=== PATIENT | female | born 1940 | race Caucasian/White ===

== ENCOUNTER 2017-11-02 03:23 | Inpatient (IN) | payer OTHER ==
[2017-11-02] VITALS (18 sets, daily range): BP systolic 86–153; BP diastolic 61–89; PULSE 82–123; TEMP 36.6–37; O2SAT 92–100; BMI 39.4
[~2017-11-02] VITALS: Ht 152.4 cm; Wt 84.7 kg
--- NOTE | 2017-11-02 03:37 | EMERGENCY ROOM VISIT NOTE ---
History Report prepared by Beatris: Ryan Arroyo Under the Supervision of: Dr. More Marie D.O. First contact with patient: 03:29 Chief Complaint: SHORTNESS OF BREATH Stated Complaint: SHORTNESS OF BREATH History of Present Illness The patient is a 77 year old female who presents to the Emergency Room with complaints of constant, severe, shortness of breath beginning 1 hour and 45 minutes ago. EMS states the patient had a sudden onset of shortness of breath. They report the patient was placed on c-pap in route and given Adenocard and Cardizem. EMS notes this helped the patient. They state they tried to remove the patient from C-pap and put her on NC 6L, but her O2Sat dropped. EMS reports they applied an inch of nitro paste. They note the patient complained of a sorethroat earlier today. The patient states she has phlegm in her throat, and she cannot clear it. She reports this began in the middle of her sleep. The patient denies any pain. The patient's daughter states she started smoking a pack of cigarettes a day 6 weeks ago after an argument. She reports the patient has not smoked in 20 years. The daughter notes the patient woke up severely short of breath. She states the patient ran into her room and could not breathe. The daughter reports the patient had vomited, became incontinent of stool, and was insisting she put a straw in the patient's throat so she can breathe. Source of History: patient, family (daughter), EMS Onset: 1 hour and 45 minutes ago Symptom Intensity: severe Quality: other (SOB) Timing: constant Associated Symptoms: + sorethroat, + vomiting Note: Associated symptoms: incontinent of stool Review of Systems See HPI for pertinent positives & negatives. A total of 10 systems reviewed and were otherwise negative. Past Medical & Surgical Medical Problems: (1) GERD (gastroesophageal reflux disease) (2) Hemorrhoids (3) HTN (hypertension) (4) Hypothyroidism (5) Status post bilateral knee replacements Family History FH: cancer Hypertension Social History Smoking Status: Never Smoker Alcohol Use: none Housing Status: lives with family Occupation Status: unemployed Current/Historical Medications Scheduled Aspirin (Aspirin Ec), 81 MG PO DAILY Cholecalciferol (Vitamin D3), 1,000 UNITS PO DAILY Docusate Sodium (Docusate Sodium), 100 MG PO BID Ferrous Sulfate (Kp Ferrous Sulfate), 1 TAB PO DAILY Hydrocortisone 2.5% (Rectal) (Anusol-Hc 2.5%), 1 APPLN TOP BID Levothyroxine Sodium (Levothyroxine Sodium), 200 MCG PO DAILY Levothyroxine Sodium (Levothyroxine Sodium), 50 MCG PO DAILY Losartan Potassium (Cozaar), 50 MG PO DAILY Metoprolol Succ (Toprol Xl) (Toprol-Xl), 50 MG PO DAILY Paroxetine (Paxil), 40 MG PO DAILY Raloxifene Hcl (Evista), 60 MG PO DAILY Tolterodine Tartrate (Tolterodine Tartrate), 2 MG PO BID Scheduled PRN Clonazepam (Klonopin), 0.5 MG PO TID PRN for anxiety Naproxen (Aleve), 440 MG PO DIRECTED PRN for Pain Ropinirole (Requip), 0.5 MG PO TID PRN for restless legs [aspirin caffeine], 1 TAB PO DAILY PRN for mild pain Allergies Coded Allergies: Amoxicillin (Verified Allergy, Unknown, unknown, 11/02/17) Lisinopril (Verified Allergy, Unknown, unknown, 11/02/17) Milk (Verified Allergy, Unknown, GI UPSET, 11/02/17) Physical Exam Vital Signs Date Time Temp Pulse Resp B/P (MAP) Pulse Ox O2 Delivery O2 Flow Rate FiO2 11/02/17 05:37 112 23 121/89 98 BiPAP 100 11/02/17 05:33 104 99 BiPAP/CPAP 100 11/02/17 04:31 132/98 11/02/17 04:23 99 18 97 BiPAP 100 11/02/17 04:01 120/89 11/02/17 03:53 102 24 117/63 96 11/02/17 03:41 96 92 75 11/02/17 03:38 91 BiPAP 11/02/17 03:35 98 11/02/17 03:29 134/67 11/02/17 03:25 36.5 96 30 134/67 93 CPAP Physical Exam General: Moderate respiratory distress. The patient has audible rales on the initial examination. HEENT: Head - normocephalic and atraumatic Pupils are equal, round, and reactive to light. Extraocular eye muscles are intact, and sclera are anicteric. Nose - moist nasal mucosa without discharge. Mouth - moist buccal mucosa. Oropharynx is nonerythematous and there is no tonsillar exudate or edema noted. Neck: Supple; no JVD, nuchal rigidity, cervical lymphadenopathy. Heart: Regular rate and rhythm. There is a normal S1 and S2 with no murmurs, clicks, or gallops appreciated. Lungs: Diffuse rales. Abdomen: Soft, completely nontender, nondistended, with good bowel sounds. There are no palpable pulsatile masses or hepatosplenomegaly. There is no guarding, rigidity, or rebound noted. Extremities: No evidence of cyanosis or clubbing. 2+ edema. There are easily palpable peripheral pulses. Skin: warm and dry with good turgor and no rashes. Medical Decision & Procedures ER Provider Diagnostic Interpretation: X-ray results as stated below per interpretation by me: Chest X-ray: Massive pulmonary edema - right greater than left. Laboratory Results 11/02/17 03:48 Red Blood Count 4.48, Mean Corpuscular Volume 84.2, Mean Corpuscular Hemoglobin 27.2, Mean Corpuscular Hemoglobin Concent 32.4, Mean Platelet Volume 8.9, Neutrophils (%) (Auto) 78.2, Lymphocytes (%) (Auto) 10.8, Monocytes (%) (Auto) 9.0, Eosinophils (%) (Auto) 1.5, Basophils (%) (Auto) 0.1, Neutrophils # (Auto) 11.56, Lymphocytes # (Auto) 1.59, Monocytes # (Auto) 1.33, Eosinophils # (Auto) 0.22, Basophils # (Auto) 0.02 11/02/17 03:48 Test 11/02/17 03:47 11/02/17 03:48 11/02/17 05:28 Prothrombin Time 11.7 SECONDS (9.0-12.0) Prothromb Time International Ratio 1.1 (0.9-1.1) Procalcitonin < 0.05 ng/ml (0-0.5) White Blood Count 14.78 K/uL (4.8-10.8) Red Blood Count 4.48 M/uL (4.2-5.4) Hemoglobin 12.2 g/dL (12.0-16.0) Hematocrit 37.7 % (37-47) Mean Corpuscular Volume 84.2 fL (80-100) Mean Corpuscular Hemoglobin 27.2 pg (25-34) Mean Corpuscular Hemoglobin Concent 32.4 g/dl (32-36) Platelet Count 403 K/uL (130-400) Mean Platelet Volume 8.9 fL (7.4-10.4) Neutrophils (%) (Auto) 78.2 % Lymphocytes (%) (Auto) 10.8 % Monocytes (%) (Auto) 9.0 % Eosinophils (%) (Auto) 1.5 % Basophils (%) (Auto) 0.1 % Neutrophils # (Auto) 11.56 K/uL (1.4-6.5) Lymphocytes # (Auto) 1.59 K/uL (1.2-3.4) Monocytes # (Auto) 1.33 K/uL (0.11-0.59) Eosinophils # (Auto) 0.22 K/uL (0-0.5) Basophils # (Auto) 0.02 K/uL (0-0.2) RDW Standard Deviation 45.7 fL (36.4-46.3) RDW Coefficient of Variation 15.2 % (11.5-14.5) Immature Granulocyte % (Auto) 0.4 % Immature Granulocyte # (Auto) 0.06 K/uL (0.00-0.02) Anion Gap 7.0 mmol/L (3-11) Est Creatinine Clear Calc Drug Dose 44.4 ml/min Estimated GFR () 55.6 Estimated GFR (Non- 48.0 BUN/Creatinine Ratio 10.9 (10-20) Calcium Level 9.1 mg/dl (8.5-10.1) Pro-B-Type Natriuretic Peptide 6948 pg/ml (0-900) Arterial Blood pH 7.36 (7.35-7.45) Arterial Blood Partial Pressure CO2 41 mmHg (35-46) Arterial Blood Partial Pressure O2 179 mm/Hg (80-95) Arterial Blood HCO3 23 mmol/L (19-24) Arterial Blood Oxygen Saturation 99.3 % (90-95) Arterial Blood Base Excess -2.6 mEq/L (-9-1.8) Arterial Blood Gas Delivery 100% Greg Test POS (POS) Magnesium Level 1.8 mg/dl (1.8-2.4) Thyroid Stimulating Hormone (TSH) < 0.005 uIu/ml (0.300-4.500) Free Thyroxine 3.43 ng/dl (0.80-1.60) Total Triiodothyronine 1.39 ng/ml (0.60-1.81) Laboratory results per my review. Medications Administered Medications (Trade) Dose Ordered Sig/[place] Route Start Time Stop Time Status Last Admin Dose Admin Furosemide (Lasix Inj) 40 mg NOW STAT IV 11/02/17 03:49 11/02/17 03:50 DC 11/02/17 03:53 40 MG Heparin Sodium/ Dextrose 1 ea NOW STAT N/A 11/02/17 04:49 11/02/17 04:51 DC 11/02/17 05:13 1 EA Heparin Sodium/ Dextrose 500 ml @ 27 mls/hr [id number] IV 11/02/17 05:30 11/09/17 05:29 11/02/17 22:01 27 MLS/HR Ipratropium Rock (Atrovent 0.02% 0.5MG/2.5ML Neb) 0.5 mg NOW STAT INH 11/02/17 05:18 11/02/17 05:19 DC 11/02/17 05:33 0.5 MG Levalbuterol (Xopenex 1.25MG/ 0.5ML Neb) 1.25 mg NOW STAT INH 11/02/17 05:18 11/02/17 05:19 DC 11/02/17 05:33 1.25 MG Procedure 0349: Ordered Furosemide 40mg IV 0507: Ordered Heparin drip ECG Per My Interpretation Indication: SOB/dyspnea Rate (beats per minute): 92 Rhythm: atrial fibrillation Findings: ST depression (Lateral, Lead I, and AVL) Comparison ECG Date: 09/30/2013 Change: A-fib and ST depressions are new. ED Course 0328: The patient was evaluated in room B03B. A complete history and physical examination were performed. Nursing notes and previous electronic medical records were reviewed. IV lock was established and labs were drawn as above. The patient was placed on BiPAP. She had good O2 saturations with this in place and appeared much more comfortable. 0349: I spoke with the patient's daughter. Ordered Furosemide 40mg IV 0445: I reevaluated the patient. She was more comfortable appearing and in no respiratory distress. Her lungs appeared more clear to auscultation. 0449: Ordered Heparin drip 0452: I discussed the patient's case with Vlad Cagle PA-C, ICU. He is aware of the patient's case and will evaluate the patient for further care. 0455: I discussed the patient's case with Ag Bartlett. The patient will be evaluated for further management and care. 0507: A Brandon catheter was placed Medical Decision The patient is a 77 year old female who presents to the ED with severe shortness of breath. Differential diagnosis includes a-fib with RVR, STEMI, CHF , acute coronary syndrome, pneumonia, sepsis. Lab results show: WBC of 14.7, stable H&H, troponin of 1.9, BNP of 6948, glucose of 129, normal renal function. This is a 77-year-old female patient who came to the emergency department and respiratory failure. O2 saturations without BiPAP were 72%. The patient appeared comfortable on BiPAP. Chest x-ray showed significant asymmetric pulmonary edema. Lasix was initiated and a Brandon catheter was placed. The patient's symptoms started abruptly. She felt fine before bed. She had no shortness of breath, cough or fever. I discussed the case with the PA in the ICU and he will evaluate the patient. She will remain on BiPAP. Medication Reconcilliation Current Medication List: was personally reviewed by me Blood Pressure Screening Patient's blood pressure: Normal blood pressure Blood pressure disposition: Did not require urgent referral Consults Time Called: [phone] Consulting Physician: Vlad Cagle PA-C, ICU Returned Call: [phone] I discussed the patient's case with Vlad Cagle PA-C, ICU. He is aware of the patient's case and will evaluate the patient for further care. Additional Consults: Time Called: [phone] Consulted Physician: Ag Bartlett Returned Call: [phone] Additional Comments: I discussed the patient's case with Ag Bartlett. The patient will be evaluated for further management and care. Impression Primary Impression: Congestive heart failure Additional Impression: Atrial fibrillation with RVR Critical Care I have personally spent greater than 60 minutes of critical care time in the direct management of this patient. This includes bedside care, interpretation of diagnostic studies, and testing, discussion with consultants, patient, and family members, and other required patient management activities. This 60 minutes is in excess of all separately billable procedures. Scribe Attestation The scribe's documentation has been prepared under my direction and personally reviewed by me in its entirety. I confirm that the note above accurately reflects all work, treatment, procedures, and medical decision making performed by me. Departure Information Dispostion Being Evaluated By Hospitalist Referrals Mika Billy M.D. (PCP) Patient Instructions My [facility] Problem Qualifiers Primary Impression: Congestive heart failure Heart failure type: systolic Heart failure chronicity: acute Qualified Codes: I50.21 - Acute systolic (congestive) heart failure
[2017-11-02] MEDS ORDERED: FUROSEMIDE 40 MG/4 ML VIAL IV STA (03:49)
[2017-11-02] MEDS ORDERED: CLON0.5T3 PO (03:57)
[2017-11-02] MEDS ORDERED: RALO60TA30 PO (03:58)
[2017-11-02 03:59] LABS: BASO % 0.1 %; BASO ABS # 0.02 K/uL (0-0.2); EOS % 1.5 %; EOS ABS # 0.22 K/uL (0-0.5); HEMATOCRIT 37.7 % (37-47); HEMOGLOBIN 12.2 g/dL (12.0-16.0); IG# 0.06 K/uL (0.00-0.02); LYMPH % 10.8 %; LYMPH ABS # 1.59 K/uL (1.2-3.4); MEAN CELL VOLUME 84.2 fL (80-100); MEAN CORPUSCULAR HEMOGLOBIN 27.2 pg (25-34); MEAN CORPUSCULAR HGB CONC 32.4 g/dl (32-36); MEAN PLATELET VOLUME 8.9 fL (7.4-10.4); MONO ABS # 1.33 K/uL (0.11-0.59); NEUT % 78.2 %; NEUT ABS # 11.56 K/uL (1.4-6.5); PLATELET COUNT 403 K/uL (130-400); RED CELL DISTRIBUTION WIDTH CV 15.2 % (11.5-14.5); RED CELL DISTRIBUTION WIDTH SD 45.7 fL (36.4-46.3); WHITE BLOOD COUNT 14.78 K/uL (4.8-10.8)
[2017-11-02] MEDS ORDERED: FERR1TAB13 PO (03:59)
[2017-11-02] MEDS ORDERED: ROPI0.5T15 PO (04:00)
[2017-11-02] MEDS ORDERED: HYDR2.5C37 TOP (04:01)
[2017-11-02] MEDS ORDERED: LOSA50TA6 PO (04:02)
[2017-11-02] MEDS ORDERED: METO50TA8 PO (04:03)
[2017-11-02] MEDS ORDERED: PARO1TAB29 PO (04:04)
[2017-11-02] MEDS ORDERED: LEVO200T6 PO (04:05)
[2017-11-02] MEDS ORDERED: LEVO50TA6 PO (04:07)
[2017-11-02] MEDS ORDERED: TOLT2TAB9 PO (04:09)
[2017-11-02] MEDS ORDERED: DOCU100C31 PO (04:10)
[2017-11-02] MEDS ORDERED: CHOL1000 PO (04:10)
[2017-11-02] MEDS ORDERED: ASPI81TA28 PO (04:11)
[2017-11-02] MEDS ORDERED: ASPIRIN CAFFEINE PO (04:13)
[2017-11-02] MEDS ORDERED: NAPR1TAB9 PO (04:14)
[2017-11-02 04:18] LABS: ALBUMIN 3.1 gm/dl (3.4-5.0); ALT/SGPT 19 U/L (12-78); AST/SGOT 23 U/L (15-37); BLOOD UREA NITROGEN 12 mg/dl (7-18); CALCIUM 9.1 mg/dl (8.5-10.1); CARBON DIOXIDE 23 mmol/L (21-32); CREATININE 1.12 mg/dl (0.60-1.20); GLUCOSE 129 mg/dl (70-99); POTASSIUM 3.8 mmol/L (3.5-5.1); SODIUM 138 mmol/L (136-145)
[2017-11-02 04:32] LABS: ALKALINE PHOSPHATASE 85 U/L (45-117); TOTAL PROTEIN 6.9 gm/dl (6.4-8.2)
[2017-11-02] MEDS ORDERED: LEVALBUTEROL/IPRATROPIUM NEB INH STA (05:07)
[2017-11-02] MEDS ORDERED: HEPARIN 25000 UNIT/500 ML D5W ONE (05:07)
[2017-11-02] MEDS ORDERED: LEVALBUTEROL/IPRATROPIUM NEB INH PRN (05:15)
[2017-11-02] MEDS ORDERED: LEVALBUTEROL 1.25MG/0.5ML NEB INH STA (05:18)
[2017-11-02] MEDS ORDERED: IPRATROPIUM BROMIDE NEB SOLN 0.02% 2.5 ML VIAL INH STA (05:18)
[2017-11-02 05:21] LABS: INR 1.1 (0.9-1.1); PTT PATIENT 25.1 SECONDS (21.0-31.0)
[2017-11-02] MEDS ORDERED: IPRATROPIUM BROMIDE NEB SOLN 0.02% 2.5 ML VIAL INH PRN (05:30)
[2017-11-02] MEDS ORDERED: LEVALBUTEROL 1.25MG/0.5ML NEB INH PRN (05:30)
[2017-11-02] MEDS: HEPARIN 25,000 UNIT/500ML D5W 500 ML IV SCH ×2 (06:14→22:01)
[2017-11-02] MEDS ORDERED: MAGNESIUM SULFATE 1GM / D5W 100 ML IV STA (06:22)
--- NOTE | 2017-11-02 06:28 | DIAGNOSTIC IMAGING REPORT ---
CHEST ONE VIEW PORTABLE CLINICAL HISTORY: Shortness of breath. COMPARISON STUDY: Chest radiograph September 30, 2013. FINDINGS: Lung volumes are normal. There is no pneumothorax. There are suspected trace left and small right pleural effusions. There is diffuse interstitial thickening with airspace opacities, greater within the right lung. Cardiac size is at the upper limits of normal. Mediastinal contours are stable. IMPRESSION: 1. Extensive airspace opacities and interstitial thickening, greater within the right lung. The findings may reflect pneumonia or asymmetric pulmonary edema. Radiographic follow up is recommended. 2. Suspected small right and trace left pleural effusions. Electronically signed by: Ramos Horton M.D. 11/02/2017 6:27 AM Dictated Date/Time: 11/02/2017 6:25 AM
[2017-11-02] MEDS ORDERED: ACETAMINOPHEN 325 MG TAB PO PRN ×2 (06:30)
[2017-11-02] MEDS ORDERED: MoRPHine SULFATE 2 MG/ML CARP IV PRN (06:30)
[2017-11-02] MEDS ORDERED: NITROGLYCERIN 0.4 MG SL PER TAB CHARGE SL PRN (06:30)
[2017-11-02] MEDS ORDERED: PROCHLORPERAZINE INJ 5 MG in SYRINGE 4 ML IV PRN (06:30)
[2017-11-02] MEDS ORDERED: ICU PROTOCOL FOR HYPERGLYCEMIA PRN ×2 (06:30)
[2017-11-02] MEDS ORDERED: METOPROLOL SUCC 50MG EXT REL TAB PO STA ×2 (06:38→10:27)
[2017-11-02] MEDS ORDERED: POTASSIUM CHLORIDE 10 MEQ TABCR PO STA (06:38)
--- NOTE | 2017-11-02 07:23 | Critical Care Consultation ---
Critical Care Consultation Date of Consultation: November 02, 2017. Attending Physician: Reason for Consultation: 77-year-old female with acute hypoxic respiratory failure secondary to flash pulmonary edema in the setting of new onset A. fib with RVR requiring aggressive diuresis and close hemodynamic monitoring and noninvasive ventilatory techniques. History of Present Illness Patient is a 77-year-old female with a significant past medical history of hypertension and hyperlipidemia who presented to the emergency department this morning with an acute onset of shortness of breath. Patient had been a non- smoker for the past 20 years up until 6 weeks ago when she started smoking again. She is smoked approximately 1/2-1 pack of cigarettes per day for the past 6 weeks. She admits to increasing cough over this time. This evening, after smoking 4 cigarettes, she reports development of shortness of breath and feeling of suffocation. She ran into her daughter's bedroom to call for help. Her daughter reports that she was having obvious difficulty with breathing and had changed to a purplish color. In addition, she apparently asked the daughter to put a straw in her throat to help her breathe. Eventually, EMS was contacted to transfer the patient to the hospital. In route, the patient received adenosine 2 secondary to tachycardia with a rate of 180 bpm. This had no effect and the patient eventually received a 20 mg dose of Cardizem intravenously. This did seem to slow her rate which did help improvement of symptoms as well. On arrival in the emergency department, the patient had chest x-ray which was concerning for extensive pulmonary edema with greater focus to the RIGHT versus left. She was placed on BiPAP as she had saturations in the 70s while on nasal cannula alone. In addition, she had an elevated troponin and was started on a heparin drip secondary to concerns for acute coronary event. Her EKG demonstrated atrial fibrillation with ST depressions in lateral leads. No other acute findings were appreciated. She received 40 mg of IV Lasix as well with good diuresis. On evaluation, the patient is awake, alert, and oriented. She is aware of most of the events tonight, but is admittedly forgetful. The patient's daughter is at bedside and provides most of the historical information. The patient admits to starting smoking again secondary to increased agitation and frequent arguments with her daughter. She denies any other substance use or alcohol consumption. The patient has never experienced similar symptoms in the past. She reports taking metoprolol for blood pressure alone. She has never had a history of atrial fibrillation. She has had, surprisingly, no significant history of pulmonary disease despite an extensive smoking history. At this point, the patient reports feeling much better and reports improvement with breathing. She denies any headaches, dizziness, chest pain, abdominal pain, or bloody stools. Of note, the patient and family admit to 2-3 episodes over the past year where the patient has had periods of slurred speech as well as inability to formulate words which have lasted for several minutes with complete resolve of symptoms. She refused evaluation during these episodes. It is unknown if the patient has ever had a formal diagnosis of TIA or CVA. She also is supposed to be taking a statin which she refuses to take secondary to muscle cramping. Past Medical/Surgical History Medical Problems: (1) GERD (gastroesophageal reflux disease) (2) Hemorrhoids (3) HTN (hypertension) (4) Hypothyroidism (5) Respiratory failure, acute (6) Status post bilateral knee replacements Family History FH: cancer Hypertension PFHx: HTN Social History Smoking Status: Current Every Day Smoker Smokeless Tobacco Use: No Alcohol Use: none Drug Use: none Marital Status: single Housing Status: lives with family Occupation Status: unemployed Allergies Coded Allergies: Amoxicillin (Verified Allergy, Unknown, unknown, 11/02/17) Lisinopril (Verified Allergy, Unknown, unknown, 11/02/17) Milk (Verified Allergy, Unknown, GI UPSET, 11/02/17) Home Medications Scheduled Aspirin (Aspirin Ec), 81 MG PO DAILY Cholecalciferol (Vitamin D3), 1,000 UNITS PO DAILY Docusate Sodium (Docusate Sodium), 100 MG PO BID Ferrous Sulfate (Kp Ferrous Sulfate), 1 TAB PO DAILY Hydrocortisone 2.5% (Rectal) (Anusol-Hc 2.5%), 1 APPLN TOP BID Levothyroxine Sodium (Levothyroxine Sodium), 200 MCG PO DAILY Levothyroxine Sodium (Levothyroxine Sodium), 50 MCG PO DAILY Losartan Potassium (Cozaar), 50 MG PO DAILY Metoprolol Succ (Toprol Xl) (Toprol-Xl), 50 MG PO DAILY Paroxetine (Paxil), 40 MG PO DAILY Raloxifene Hcl (Evista), 60 MG PO DAILY Tolterodine Tartrate (Tolterodine Tartrate), 2 MG PO BID Scheduled PRN Clonazepam (Klonopin), 0.5 MG PO TID PRN for anxiety Naproxen (Aleve), 440 MG PO DIRECTED PRN for Pain Ropinirole (Requip), 0.5 MG PO TID PRN for restless legs [aspirin caffeine], 1 TAB PO DAILY PRN for mild pain Current Inpatient Medications Current Inpatient Medications Medications (Trade) Dose Ordered Sig/[place] Route Start Time Stop Time Status Last Admin Dose Admin Heparin Sodium/ Dextrose 500 ml @ 1 mls/hr Q24H IV 11/02/17 05:30 11/02/17 09:00 Ipratropium [place] (Atrovent 0.02% 0.5MG/2.5ML Neb) 0.5 mg Q4H PRN INH 11/02/17 05:30 12/02/17 05:29 Levalbuterol (Xopenex 1.25MG/ 0.5ML Neb) 1.25 mg Q4H PRN INH 11/02/17 05:30 12/02/17 05:29 Nitroglycerin (Nitrostat Tab) 0.4 mg UD PRN SL 11/02/17 06:30 12/02/17 06:29 Miscellaneous Information (Icu Protocol For Hyperglycemia) 1 ea PRN PRN N/A 11/02/17 06:30 11/04/17 06:29 UNV Tramadol HCl (Ultram Tab) 25 mg Q6H PRN PO 11/02/17 06:30 12/02/17 06:29 Prochlorperazine Edisylate 5 mg/ Syringe 5 ml @ 5 mls/min Q6H PRN IV 11/02/17 06:30 12/02/17 06:29 Morphine Sulfate (MoRPHine SULFATE INJ) 4 mg Q4H PRN IV 11/02/17 06:30 11/16/17 06:29 Clonazepam (Klonopin Tab) 0.5 mg TID PRN PO 11/02/17 06:30 12/02/17 06:29 UNV Docusate Sodium (coLACE CAP) 100 mg BID PO 11/02/17 09:00 12/02/17 08:59 UNV Losartan Potassium (coZAAR TAB) 50 mg DAILY PO 11/02/17 09:00 12/02/17 08:59 UNV Metoprolol Succinate (Toprol Xl Tab) 50 mg DAILY PO 11/03/17 09:00 12/03/17 08:59 UNV Paroxetine HCl (pAXil TAB) 40 mg DAILY PO 11/02/17 09:00 12/02/17 08:59 UNV Ropinirole HCl (Requip Tab) 0.5 mg TID PRN PO 11/02/17 06:30 12/02/17 06:29 UNV Tolterodine Tartrate (Detrol Tab) 2 mg BID PO 11/02/17 09:00 12/02/17 08:59 UNV Non-Formulary Medication (Ferrous Sulfate (Kp Ferrous Sulfate)) 1 tab DAILY PO 11/02/17 09:00 12/02/17 08:59 UNV Furosemide 40 mg/ Syringe 4 ml @ 4 mls/min BID IV 11/02/17 09:00 11/03/17 08:59 UNV Magnesium Sulfate 100 ml @ 100 mls/hr NOW STAT IV 11/02/17 06:22 11/02/17 07:21 Acetaminophen (Tylenol Tab) 650 mg Q4H PRN PO 11/02/17 06:30 12/02/17 06:29 Nitroglycerin (Nitroglycerin 2% Oint) 1 inch Q6H EXT 11/02/17 06:30 12/02/17 06:29 UNV Aspirin (Ecotrin Tab) 81 mg QAM PO 11/02/17 09:00 12/02/17 08:59 UNV Pantoprazole Sodium (Protonix Tab) 40 mg DAILY PO 11/02/17 09:00 12/02/17 08:59 UNV Miscellaneous Information (Icu Protocol For Hyperglycemia) 1 ea PRN PRN N/A 11/02/17 06:30 11/04/17 06:29 Review of Systems A complete 10-point Review of Systems was discussed with the patient, with pertinent positives and negatives listed in the History of Present Illness. All remaining Review of Systems questions can be considered negative unless otherwise specified. Physical Exam Date Time Temp Pulse Resp B/P (MAP) Pulse Ox O2 Delivery O2 Flow Rate FiO2 11/02/17 06:17 115 23 117/70 98 BiPAP 100 11/02/17 05:37 112 23 121/89 98 BiPAP 100 11/02/17 05:33 104 99 BiPAP/CPAP 100 11/02/17 04:31 132/98 11/02/17 04:23 99 18 97 BiPAP 100 11/02/17 04:01 120/89 11/02/17 03:53 102 24 117/63 96 11/02/17 03:41 96 92 75 11/02/17 03:38 91 BiPAP 11/02/17 03:35 98 11/02/17 03:29 134/67 11/02/17 03:25 36.5 96 30 134/67 93 CPAP VITAL SIGNS - Vital signs and nursing notes were reviewed. GENERAL - 77-year-old female appearing her stated age who is in no acute distress. Communicates well with provider and answers questions appropriately. SKIN - Without rashes. HEAD - NC/AT. EYES - PERRL with EOMI bilaterally. Sclera anicteric. EARS - No deformities of external structures noted on gross examination bilaterally. NOSE - Midline and without cyanosis. MOUTH/OROPHARYNX - Without perioral cyanosis. Buccal mucosa pink and moist and without leukoplakia. NECK - Neck with FROM. Supple to palpation. LUNGS - Chest wall symmetric without accessory muscle use, intercostals retractions, or central cyanosis. Normal vesicular breath sounds CTA B/L. Rales noted to the RIGHT sided lung diaz. CARDIAC - RRR with S1/S2. No murmur, rubs, or gallops appreciated. ABDOMEN - Abdominal contour obese without pulsations or visible masses. BS normoactive all four quadrants. No tenderness, palpable masses, hepatosplenomegaly, or ascites noted. EXTREMITIES - No clubbing or peripheral cyanosis. Moderate pretibial edema present. +3/5 radial and dorsalis pedis pulses palpated throughout. +5/5 strength noted in UE/LE bilaterally. NEUROLOGIC - Cranial nerves II through XII grossly intact. Sensory intact to light touch throughout. PSYCH - A&Ox3 and cooperates fully with examiner. States the year is 1918, but alert otherwise. Pt is very pleasant and interacts well with examiner. Laboratory Results Last 24 Hours Test 11/02/17 03:47 11/02/17 03:48 11/02/17 05:28 Prothrombin Time 11.7 SECONDS Prothromb Time International Ratio 1.1 Activated Partial Thromboplast Time 25.1 SECONDS Partial Thromboplastin Ratio 1.0 Procalcitonin < 0.05 ng/ml White Blood Count 14.78 K/uL Red Blood Count 4.48 M/uL Hemoglobin 12.2 g/dL Hematocrit 37.7 % Mean Corpuscular Volume 84.2 fL Mean Corpuscular Hemoglobin 27.2 pg Mean Corpuscular Hemoglobin Concent 32.4 g/dl Platelet Count 403 K/uL Mean Platelet Volume 8.9 fL Neutrophils (%) (Auto) 78.2 % Lymphocytes (%) (Auto) 10.8 % Monocytes (%) (Auto) 9.0 % Eosinophils (%) (Auto) 1.5 % Basophils (%) (Auto) 0.1 % Neutrophils # (Auto) 11.56 K/uL Lymphocytes # (Auto) 1.59 K/uL Monocytes # (Auto) 1.33 K/uL Eosinophils # (Auto) 0.22 K/uL Basophils # (Auto) 0.02 K/uL RDW Standard Deviation 45.7 fL RDW Coefficient of Variation 15.2 % Immature Granulocyte % (Auto) 0.4 % Immature Granulocyte # (Auto) 0.06 K/uL Sodium Level 138 mmol/L Potassium Level 3.8 mmol/L Chloride Level 108 mmol/L Carbon Dioxide Level 23 mmol/L Anion Gap 7.0 mmol/L Blood Urea Nitrogen 12 mg/dl Creatinine 1.12 mg/dl Est Creatinine Clear Calc Drug Dose 44.4 ml/min Estimated GFR () 55.6 Estimated GFR (Non- 48.0 BUN/Creatinine Ratio 10.9 Random Glucose 129 mg/dl Calcium Level 9.1 mg/dl Total Bilirubin 0.5 mg/dl Direct Bilirubin < 0.1 mg/dl Aspartate Amino Transf (AST/SGOT) 23 U/L Alanine Aminotransferase (ALT/SGPT) 19 U/L Alkaline Phosphatase 85 U/L Troponin I 1.910 ng/ml 3.560 ng/ml Pro-B-Type Natriuretic Peptide 6948 pg/ml Total Protein 6.9 gm/dl Albumin 3.1 gm/dl Arterial Blood pH 7.36 Arterial Blood Partial Pressure CO2 41 mmHg Arterial Blood Partial Pressure O2 179 mm/Hg Arterial Blood HCO3 23 mmol/L Arterial Blood Oxygen Saturation 99.3 % Arterial Blood Base Excess -2.6 mEq/L Arterial Blood Gas Delivery 100% Greg Test POS Lactic Acid Level 1.4 mmol/L Magnesium Level 1.8 mg/dl Thyroid Stimulating Hormone (TSH) < 0.005 uIu/ml Diagnostic Results Radiological imaging and reports were reviewed by myself. Radiologist's Interpretation as follows: CHEST ONE VIEW PORTABLE CLINICAL HISTORY: Shortness of breath. COMPARISON STUDY: Chest radiograph September 30, 2013. FINDINGS: Lung volumes are normal. There is no pneumothorax. There are suspected trace left and small right pleural effusions. There is diffuse interstitial thickening with airspace opacities, greater within the right lung. Cardiac size is at the upper limits of normal. Mediastinal contours are stable. IMPRESSION: 1. Extensive airspace opacities and interstitial thickening, greater within the right lung. The findings may reflect pneumonia or asymmetric pulmonary edema. Radiographic follow up is recommended. 2. Suspected small right and trace left pleural effusions. Assessment & Plan (1) Atrial fibrillation with RVR (2) Congestive heart failure (3) Respiratory failure, acute (4) Lower extremity edema (5) Hypothyroidism (6) HTN (hypertension) Reason Critically Ill: 77-year-old female with acute hypoxic respiratory failure secondary to flash pulmonary edema in the setting of new onset A. fib with RVR requiring aggressive diuresis and close hemodynamic monitoring and noninvasive ventilatory techniques. Neuro - * CAM ICU: NEGATIVE * Pain: Tylenol * Transient Confusion/Garbled Speech: * No focal neurological findings on exam. Do not see utility and brain imaging acutely. Certainly can be reassessed as this is likely something patient will need evaluation of at some point. Cardiac - * A. fib with RVR: * New onset. Well controlled with 1 dose of Cardizem. * Continue daily metoprolol. * EKG demonstrates atrial fibrillation at [address] depression laterally. QTc 437 ms. * A.m. echocardiogram for further evaluation of cardiac functionality. * Elevated troponin: * Will trend. * Question stress in the setting of tachycardia. * Heparin gtt at this time until further differentiation. * CHF: * 2/2 A. fib * Lasix dosing PRN. * Nitro paste q6h * BiPAP * HTN: * Continue home Rx as tolerated. * Appreciate Cardiology consultation. Respiratory - * Acute respiratory distress with hypoxia secondary to flash pulmonary edema: * BiPAP initially 12/5/100% - will titrate down FiO2 w/ improvement * CXR demonstrates pulmonary edema with greater focus RIGHT versus left. * Continue IV Lasix as needed. * Neb treatments per initial presentation with wheezing. * Encourage smoking cessation. GI - * Prophylaxis: Protonix * Diet: AHA RENAL/LYTES - * No significant electrolyte derangement. * Will trend, especially while receiving Lasix. - * Brandon in place for strict I&Os ENDO - * No h/o DM: * BSGs w/ ISS/gtt per protocols. * Hypothyroidism: * Continue w/ home Rx pending TSH/Free T4 values. HEME - * Stable H&H. * Monitor closely w/ initiation of heparin gtt. ID - * Slight leukocytosis, however likely stress related given above. * ProCal/Lactate negative. * CXR more suggestive of pulmonary edema. Will reevaluate for need of ??abx as clinical picture becomes more defined, however, she has improved greatly w/ Lasix BiPAP to this point. Much less concerned of infectious causes at this point. LINES/IV ACCESS - * PIVs x3 * Brandon DVT PROPHYLAXIS - * Heparin gtt I have personally spent 45 minutes of critical care time in the direct management of this patient. This is a life/limb threatening event. This includes time spent evaluating patient, direct bedside care, chart review, placing orders, interpretation of diagnostic studies, discussion with consultants, patient, and family members, as well as other required patient management activities. This time is exclusive of all separately billable procedures, and teaching time and separate from and in addition to any other critical care service time. Thank you for this consultation allow us to be part of this patient's care. Please refer to my attending physician's documentation for any further recommendations. I have personally evaluated and examined this patient. I agree with assessment and plan of Pattie Cagle PA-C. Patient was discussed on multidisciplinary rounds Improved aeration, hopefully able to take off noninvasive ventilation/BiPAP soon. -No evidence of hypercarbia patient would benefit from positive pressure does not need gradient Patient still needs heart rate control, will start oral medications with beta- my to resume this evening given additional dose of IV medication at this time Tolerating heparin infusion, no chest pain, discussed with cardiology Dr. Moya septal wall motion abnormality likely rate related Patient remains critically ill with rapid ventricular response at this time I have personally spent 20 minutes of critical care time in the direct management of this patient. This is a life/limb threatening event. This includes time spent evaluating patient, direct bedside care, chart review, placing orders, interpretation of diagnostic studies, discussion with consultants, patient, and/or family members regarding treatment decisions, as well as other required patient management activities. This time is exclusive of all separately billable procedures, and teaching time and separate from and in addition to any other critical care service time. Problem Qualifiers (1) Respiratory failure, acute: Respiratory failure complication: hypoxia Qualified Codes: J96.01 - Acute respiratory failure with hypoxia
[2017-11-02] MEDS ORDERED: ASPIRIN 81 MG ECTAB PO ONE (07:49)
[2017-11-02] MEDS ORDERED: METOPROLOL TARTRATE 1 MG/ML VIAL ONE (08:12)
[2017-11-02] MEDS ORDERED: METOPROLOL TARTRATE 1 MG/ML VIAL IV ONE (08:15)
[2017-11-02] MEDS: DOCUSATE SODIUM 100 MG CAP PO SCH ×2 (08:16→20:46)
[2017-11-02] MEDS: NITROGLYCERIN 2% OINTMENT 30GM TUBE EXT SCH ×4 (08:20→20:50)
[2017-11-02] MEDS: TOLTERODINE TARTRATE 2 MG TAB PO SCH ×2 (08:21→20:47)
[2017-11-02] MEDS: FERROUS SULFATE 325 MG TAB PO SCH (08:21)
[2017-11-02] MEDS: PAROXETINE 20 MG TAB PO SCH (08:21)
[2017-11-02] MEDS: PANTOprazole SOD 40 MG TAB PO SCH (08:21)
[2017-11-02] MEDS ORDERED: ASPIRIN 325 MG ECTAB PO ONE (08:30)
--- NOTE | 2017-11-02 08:59 | HISTORY & PHYSICAL EXAMINATION ---
DATE OF ADMISSION: 11/02/2017 PRIMARY CARE PHYSICIAN: Dr. Billy. CHIEF COMPLAINT: Shortness of breath. HISTORY OF PRESENT ILLNESS: History obtained from patient, daughter, and records. Patient is a fair historian. Episodic forgetfulness during the encounter. Medical history significant for hypertension, hypothyroidism, hyperlipidemia, arthritis, ongoing tobacco abuse, PVD sp surgery, Possible dementia/history of TIA as per family. In last 2 weeks, the patient noted some shortness of breath, usually on exertion and abdominal distention. Usual dry cough symptoms from chronic swallowing issues of 2 years duration. A few hours ago, the patient woke up from sleep with increased shortness of breath, No actual chest pain. No unusual leg swelling. Brought to the ER, noted to be hypoxemic. Placed on the BiPAP. Patient received Lasix for pulmonary congestion. IV heparin started for possible ACS. MEDICAL HISTORY: As above. No inducible ischemia from stress echo August 2015. EF 70%, LV wall thickness, no inducible ischemia. Diastolic dysfunction. She has had swallowing issues in the last 2 years as per daughter. Swallow evaluation last in October 2015 which showed mild oropharyngeal dysphagia. Outpatient GI consultation was recommended. Patient/family unaware of findings and recommendations. Colonoscopy 2011 showed a polyps, internal hemorrhoids. PAST SURGICAL HISTORY: She has had a knee surgery, aortic arch repair without bypass, cataract surgery, shoulder surgery. MEDICATIONS: Home medications include aspirin, Cozaar, Topral XL, Paxil, Evista, Requip, tolterodine, caffeine, cholecalciferol, Klonopin, docusate sodium, ferrous sulfate, hydrocortisone rectal. ALLERGIES: Amoxicillin, Zestril FAMILY HISTORY: Parkinson's. PERSONAL/SOCIAL HISTORY: Half pack daily in the last few weeks. No chronic alcoholic beverages. Retired childcare aide work. REVIEW OF SYSTEMS: Could not be reliably obtained . Occasional bleeding in the stools as per daughter. PHYSICAL EXAMINATION: VITAL SIGNS: Blood pressure was noted to be 132/98, pulse rate 102, RR 30, temperature 36.5, saturations 90% on BiPAP. GENERAL: anxious, obese. Minimal respiratory distress, episodic forgetfulness SKIN: Normal color, warm. HEENT: [place] palpebral conjunctivae, No ptosis. Dry mucosa. BiPAP mask in place NECK: Short neck, supple. CHEST: Expiratory wheezes. Decreased breath sounds. HEART: Irregular. Systolic murmur, palpable LE pulses. ABDOMEN: Some distention, nontender. RECTAL: Intact sphincter. Brown stool, heme negative. EXTREMITIES: No edema. No tenderness, no other gross deformities NEUROLOGIC: No gross focality except for episodic forgetfulness. Patient oriented to place. No facial asymmetry LABORATORY DATA: Hemoglobin was noted to be 12.2, hematocrit 37.7, white cell count 8.78, platelets 403. Sodium noted to be 138, potassium 3.8, chloride 108, CO2 of 23, BUN 12, creatinine 1.0, glucose 129. Troponin 1.91. BNP was 6.94. TSH noted to be less than 0.005. Chest x-ray as per my interpretation cardiomegaly, asymmetric pulmonary edema. EKG as per my interpretation, rate, rate 95, atrial fibrillation, LVH, LAD, ST depression in the lateral leads, PRWP. ABG shows pH 7.36, PCO2 of 41, PO2 of 179, 99% on 100%. ASSESSMENT: 1. Acute hypoxemic distress secondary to acute congestive heart failure ? new onset atrial fibrillation, ischemic cardiomyopathy (possible ACS w/ significant troponin elevation) as possible causative factors . 2. HTN, stable 3. Peripheral vascular disease sp surgery 4. Ongoing tobacco abuse. 5. history hypothyroidism, low TSH 6. Chronic cough symptoms from the oropharyngeal dysphagia. Possible GERD Patient still needs to go for GI workup as per swallow eval recommendations from 2016. PLAN: ICU BiPAP Diuretic tx, strict IOs, daily weights, CHF education TTE, Cardio consult RE CHF (Dr. Wallace as per patient's family request) Follow cardiac markers Continue home ASA for CAD prevention Continue home beta my for AF rate control IV heparin for thromboembolic prophylaxis for AF PPI for now for possible GERD. Outpatient GI consult for oropharyngeal dysphagia. Check other TFTs with abnormal TSH; Levothyroxine dose may need to be decreased/ adjusted Patient counseled to stop smoking. DVT Prophylaxis: Heparin. Full code. Total critical care time was 55 minutes. Patient's daughter requesting for updates from providers. Miss Olga Lidia Marroquin thru contact number [phone]. [facility]
[2017-11-02] MEDS ORDERED: LOSARTAN POTASSIUM 50 MG TAB PO SCH ×2 (09:00→21:00)
[2017-11-02] MEDS ORDERED: PANTOprazole SOD 40 MG TAB PO SCH (09:00)
[2017-11-02] MEDS ORDERED: ASPIRIN 81 MG ECTAB PO SCH (09:00)
--- NOTE | 2017-11-02 11:01 | ECHOCARDIOGRAM REPORT ---
*NOTICE TO RECEIVING DEMOCRAT AGENCY This information is strictly Confidential and protected under [place] law. [place] law prohibits you from making any further disclosure of this information unless further disclosure is expressly permitted by the written consent of the person to whom it pertains or is authorized by law. A general authorization for the release of medical or other information is not sufficient for this purpose. Hospital accepts no responsibility if the information is made available to any other person, INCLUDING THE PATIENT. Interpretation Summary * Name: GIORGI RAGLAND Study Date: 11/02/2017 09:08 AM BP: 114/95 mmHg * Patient Location: 103 HR: 107 * : 1940 (M/d/yyyy) Gender: Female Height: 60 in * Age: 77 yrs Ethnicity: CA Weight: 199 lb * Ordering Physician: Brando Tuttle * Referring Physician: Self, Referred * Performed By: Ana Dudley RDCS * * Reason For Study: Congestive Heart Failure * BSA: 1.9 m2 * -- Conclusions -- * Patient was in atrial fibrillation with rapid response during the study. * The left ventricle is normal in size. * There is moderate concentric left ventricular hypertrophy. * There is focal hypokinesis of the mid and apical anterior and inferior septum with all other wall segments rashaun hyperdynamic fashion * Ejection Fraction = 55-60%. * The left atrium is moderately dilated. * There is moderate calcification of the aortic valve leaflets with mild restriction leaflet mobility * Mild to moderate valvular aortic stenosis. * There is mild to moderate mitral annular calcification. * There is trace mitral regurgitation. * There is moderate tricuspid regurgitation. Procedure Details * A complete two-dimensional transthoracic echocardiogram was performed (2D, M-mode, Doppler and color flow Doppler). * The study was technically difficult. * The study was technically difficult, but visualization was adequate with the administration of Definity ultrasound contrast. * There were technical limitations due to patient'spoor positioning * A contrast injection of Definity was performed to improve assessment of LV function. * Contrast was injected into an intravenous site in the right arm. * One vial of Definity ultrasound contrast was diluted in normal saline to a total volume of 10 ml. A total of '2' ml of solution was administered during imaging. * Lot # [id number] of Definity utilized for procedure. * Expiration date 1APR19. * The attending nurse who injected the contrast agent was Indigo Rodrigez RN. Left Ventricle * The left ventricle is normal in size. * There is moderate concentric left ventricular hypertrophy. * Ejection Fraction = 55-60%. * There is focal hypokinesis of the mid and apical anterior and inferior septum with all other wall segments rashaun hyperdynamic fashion Right Ventricle * The right ventricle is normal in size and function. Atria * The left atrium is moderately dilated. * Right atrial size is normal. * No ASD detected; PFO is not assessed. Mitral Valve * There is mild to moderate mitral annular calcification. * There is no mitral valve stenosis. * There is trace mitral regurgitation. Tricuspid Valve * The tricuspid valve anatomy is normal. * There is no tricuspid stenosis. * There is moderate tricuspid regurgitation. Aortic Valve * The aortic valve is trileaflet. * There is moderate calcification of the aortic valve leaflets with mild restriction leaflet mobility * Mild to moderate valvular aortic stenosis. * No aortic regurgitation is present. Pulmonic Valve * The pulmonic valve is not well visualized. Great Vessels * The aortic root is normal size. Pericardium/Pleural * There is no pericardial effusion. Great Vessels * Normal inferior vena cava diameter and respiratory variation suggests normal central venous pressure. MMode 2D Measurements and Calculations IVSd 1.7 cm LVIDd 4.4 cm LVIDs 2.4 cm LVPWd 1.0 cm IVS/LVPW 1.7 FS 46.7 % EDV(Teich) 88.7 ml ESV(Teich) 19.2 ml EF(Teich) 78.3 % EDV(cubed) 86.4 ml ESV(cubed) 13.1 ml EF(cubed) 84.9 % LV mass(C)d 229.3 grams LV mass(C)dI 123.1 grams/m\S\2 SV(Teich) 69.4 ml SI(Teich) 37.3 ml/m\S\2 SV(cubed) 73.3 ml SI(cubed) 39.4 ml/m\S\2 Ao root diam 2.9 cm Ao root area 6.5 cm\S\2 ACS 1.3 cm LA dimension 5.0 cm LA/Ao 1.8 LVOT diam 1.9 cm LVOT area 2.7 cm\S\2 LVAd ap4 27.3 cm\S\2 LVLd ap4 7.6 cm EDV(MOD-sp4) 82.0 ml EDV(sp4-el) 83.1 ml LVAs ap4 13.5 cm\S\2 LVLs ap4 6.9 cm ESV(MOD-sp4) 22.5 ml ESV(sp4-el) 22.6 ml EF(MOD-sp4) 72.6 % EF(sp4-el) 72.8 % LVAd ap2 30.9 cm\S\2 LVLd ap2 8.4 cm EDV(MOD-sp2) 96.8 ml EDV(sp2-el) 96.7 ml LVAs ap2 17.2 cm\S\2 LVLs ap2 7.8 cm ESV(MOD-sp2) 32.4 ml ESV(sp2-el) 32.1 ml EF(MOD-sp2) 66.5 % EF(sp2-el) 66.8 % LVLd %diff 8.8 % EDV(MOD-bp) 93.6 ml LVLs %diff 11.5 % ESV(MOD-bp) 28.7 ml EF(MOD-bp) 69.3 % SV(MOD-sp4) 59.5 ml SI(MOD-sp4) 31.9 ml/m\S\2 SV(MOD-sp2) 64.4 ml SI(MOD-sp2) 34.6 ml/m\S\2 SV(MOD-bp) 64.9 ml SI(MOD-bp) 34.8 ml/m\S\2 SV(sp4-el) 60.5 ml SI(sp4-el) 32.5 ml/m\S\2 SV(sp2-el) 64.6 ml SI(sp2-el) 34.7 ml/m\S\2 Doppler Measurements and Calculations MV E max khurram 144.5 cm/sec MV dec time 0.19 sec Ao V2 max 188.3 cm/sec Ao max PG 14.2 mmHg Ao max PG (full) 8.7 mmHg Ao V2 mean 135.1 cm/sec Ao mean PG 8.3 mmHg Ao mean PG (full) 5.4 mmHg Ao V2 VTI 31.9 cm ANUM(I,A) 1.9 cm\S\2 ANUM(I,D) 1.9 cm\S\2 ANUM(V,A) 1.7 cm\S\2 ANUM(V,D) 1.7 cm\S\2 LV V1 max PG 5.6 mmHg LV V1 mean PG 2.9 mmHg LV V1 max 117.9 cm/sec LV V1 mean 77.1 cm/sec LV V1 VTI 21.8 cm SV(Ao) 206.1 ml SI(Ao) 110.7 ml/m\S\2 SV(LVOT) 59.3 ml SI(LVOT) 31.8 ml/m\S\2 PA V2 max 111.0 cm/sec PA max PG 4.9 mmHg TR max khurram 270.3 cm/sec
[2017-11-02 12:12] LABS: PTT PATIENT 34.8 SECONDS (21.0-31.0)
--- NOTE | 2017-11-02 13:25 | CARDIOLOGY CONSULTATION ---
DATE OF CONSULTATION: 11/02/2017 REFERRING: SHANNEN Dial; Brando Tuttle MD PRIMARY CARE PHYSICIAN: Mika Billy MD INDICATIONS: Atrial fibrillation with rapid ventricular response, acute pulmonary edema. HISTORY OF PRESENT ILLNESS: The patient is a 77-year-old female whose past medical history in review of records is notable for hypertension, hypothyroidism, on replacement, hyperlipidemia, chronic arthritic complaints, history of past TIA who presented to the Emergency Room last night with acute respiratory distress. The patient is able to give some history this morning that was mildly confused but pleasant. She noted some chest pressure, pain and discomfort on initial presentation to the ER, she was found to be in atrial fibrillation with very rapid ventricular response and signs and symptoms of acute pulmonary edema and heart failure. She was treated with diuretics, BiPAP and rate control and is referred now for further evaluation. She is currently comfortable, denies any chest pain. Initial heart rates on presentation were as high as 180, are now controlled 100-110. She is now breathing easier, did require a BiPAP respiratory support overnight. She denies any prior history of cardiac disease per her own description, though relatively limited on historical accuracy. She denies any recent fevers, chills or productive cough. Symptoms began on awakening from sleep. Notes no recent worsening edema or lower extremity pain or tenderness with chronic knee discomfort. Notes no cough other than a dry cough chronically. Notes no melena, hematochezia, dysuria or hematuria. Has had some difficulties with dysphagia, "drinks lots of fluids." ALLERGIES: LISTED AMOXICILLIN, LISINOPRIL, AND MILK. MEDICATIONS: Prior to hospitalization, aspirin 81 mg per day, vitamin D3 1000 mg daily, docusate 100 mg b.i.d., ferrous sulfate 1 tablet per day, levothyroxine 200 mcg and 50 mcg p.o. daily, losartan 50 mg p.o. daily, Toprol-XL 50 mg p.o. daily, paroxetine 40 mg p.o. daily, Evista 60 mg p.o. daily, tolterodine tartrate 2 mg b.i.d. PAST SURGICAL HISTORY: Multiple including bilateral knee replacements, recent lumbar injection therapy for chronic back pain. FAMILY HISTORY: Notable for grandfather with history of stroke and hypertension. SOCIAL HISTORY: The patient resides in [place] with family. She is . She recently begun smoking with prior history of nonsmoker for greater than 20 years. Uses no significant alcoholic beverages. REVIEW OF SYSTEMS: As per HPI. The patient is aware of per her description difficulties with swallowing at times as well as history of occasional blood in stools. GENERAL: The patient is a pleasant, age-appropriate female currently now. VITAL SIGNS: Heart rate is 115, blood pressure is 114/95. She is oxygenating on 4 liters nasal cannula. HEENT: Normocephalic, atraumatic. Nares without discharge. Throat was clear. NECK: Without thyromegaly, lymphadenopathy. There is no jugular venous distention at 30 degrees. LUNGS: Reveal coarse crackles, basilar, right greater than left. CARDIOVASCULAR: Irregular, irregular. There is no S3 gallop. ABDOMEN: Soft, nontender. EXTREMITIES: Without cyanosis or clubbing. There is 1+ lower extremity edema with bilateral well-healed surgical scars. There are intact distal pulses. NEUROLOGIC: The patient is pleasant, answering questions appropriately. LABORATORY STUDIES: Sodium is 138, potassium is 3.8, chloride is 108, bicarbonate is 23, BUN is 12, creatinine is 1.1. Troponins on serial testing, however, increased to now 3.5. TSH was less than 0.05 with T4 of 3.43. Albumin level is 3.1, hemoglobin is 12.2, white cell count is 14.7. Chest x-ray reveals asymmetric pulmonary edema. Echocardiogram preliminary review reveals [id number] left ventricular hypertrophy. There is hypokinesis of the apical and mid septum with mild diminished LV systolic function on preliminary review. Aortic valve was calcified without significant stenosis. Full interpretation pending. IMPRESSION: A 77-year-old female presented with acute pulmonary edema, respiratory distress and atrial fibrillation with rapid ventricular response. An echocardiogram reflect non-ST segment elevation myocardial infarction likely as a culprit of rapid rates though acute coronary event not completely excluded. RECOMMENDATIONS: Will resume oral Toprol with further additional beta my for rate control. She has responded very promptly to IV furosemide and topical nitrates. Echocardiogram will be fully reviewed. She is appropriately anticoagulated with heparin. This will be continued though with some concerns regarding patient's history of chronic dysphagia, iron requirements, in the past noted blood in the stools per her description. EKG will be repeated this morning. Will follow up closely in hospital.
[2017-11-02] MEDS ORDERED: NURSING DECISION MEDICATION ORDER SCH (14:30)
[2017-11-02] MEDS ORDERED: HEPARIN IV BOLUS 5,000 UNIT in SYRINGE 0 ML IV ONE (14:45)
[2017-11-02 15:16] LABS: ALBUMIN 2.8 gm/dl (3.4-5.0); TOTAL PROTEIN 5.8 gm/dl (6.4-8.2)
[2017-11-02] MEDS: FUROSEMIDE INJ 40 MG in SYRINGE 0 ML IV SCH (16:31)
[2017-11-02] MEDS: ROPINIROLE HCL 1 MG TAB PO PRN ×2 (16:32→20:47)
[2017-11-02] MEDS: CLONAZEPAM 0.5 MG TAB PO PRN (16:34)
[2017-11-02] MEDS ORDERED: METOPROLOL SUCC 50MG EXT REL TAB PO SCH (21:00)
[2017-11-02 21:08] LABS: PTT PATIENT 75.1 SECONDS (21.0-31.0)
--- NOTE | 2017-11-02 23:48 | Progress Note ---
Medicine Progress Note Date & Time of Visit: November 02, 2017 at 14:32. Subjective 77 yo F who recently picked up smoking presents with acute respiratory failure 2 /2 pulmonary edema. She was placed on BIPAP and admitted to the ICU this morning. She was intolerant of NC and was required to go back on the BIPAP. She is confused and disoriented and ROS/history cannot be obtained from her at this time. Objective Last 8 Hrs Date Time Temp Pulse Resp B/P (MAP) Pulse Ox O2 Delivery O2 Flow Rate FiO2 11/02/17 14:00 82 18 86/63 (71) 99 BiPAP 50 11/02/17 12:41 35 11/02/17 12:00 95 Nasal Cannula 3.0 11/02/17 12:00 37.0 102 24 109/61 (77) 95 Nasal Cannula 3.0 11/02/17 10:00 95 18 107/87 (94) 93 Nasal Cannula 3.0 11/02/17 08:14 115 114/95 11/02/17 08:00 Nasal Cannula BiPAP 11/02/17 07:43 123 99 65 11/02/17 07:37 36.6 115 22 119/70 97 BiPAP 50 11/02/17 06:44 117 22 116/64 96 BiPAP Physical Exam: GEN: obese, in no acute distress, alert and disoriented to place and time. BIPAP in place with no increased work of breathing. HEENT: NC/AT, PERRL, normal sclerae CARDIO: reg rate, S1/2 heard without m/g/r LUNGS: CTA bilaterally, no crackles, rales or wheezes, good diaphragmatic excursion ABD: soft, non-tender, non-distended, no rebound or guarding EXTREMITY: RP and DP palpable 2+ bilat, no LE swelling or edema, extremities are warm and well-perfused NEURO: CN 2-12 grossly intact, exam limited as patient confused. MUSC: generalized weakness, exam is limited as patient is confused. SKIN: warm and dry Laboratory Results: 11/02/17 03:48 Red Blood Count 4.48, Mean Corpuscular Volume 84.2, Mean Corpuscular Hemoglobin 27.2, Mean Corpuscular Hemoglobin Concent 32.4, Mean Platelet Volume 8.9, Neutrophils (%) (Auto) 78.2, Lymphocytes (%) (Auto) 10.8, Monocytes (%) (Auto) 9.0, Eosinophils (%) (Auto) 1.5, Basophils (%) (Auto) 0.1, Neutrophils # (Auto) 11.56, Lymphocytes # (Auto) 1.59, Monocytes # (Auto) 1.33, Eosinophils # (Auto) 0.22, Basophils # (Auto) 0.02 11/02/17 03:48 Test 11/02/17 03:47 11/02/17 03:48 11/02/17 05:28 11/02/17 11:44 Prothrombin Time 11.7 SECONDS (9.0-12.0) Prothromb Time International Ratio 1.1 (0.9-1.1) Procalcitonin < 0.05 ng/ml (0-0.5) White Blood Count 14.78 K/uL (4.8-10.8) Red Blood Count 4.48 M/uL (4.2-5.4) Hemoglobin 12.2 g/dL (12.0-16.0) Hematocrit 37.7 % (37-47) Mean Corpuscular Volume 84.2 fL (80-100) Mean Corpuscular Hemoglobin 27.2 pg (25-34) Mean Corpuscular Hemoglobin Concent 32.4 g/dl (32-36) Platelet Count 403 K/uL (130-400) Mean Platelet Volume 8.9 fL (7.4-10.4) Neutrophils (%) (Auto) 78.2 % Lymphocytes (%) (Auto) 10.8 % Monocytes (%) (Auto) 9.0 % Eosinophils (%) (Auto) 1.5 % Basophils (%) (Auto) 0.1 % Neutrophils # (Auto) 11.56 K/uL (1.4-6.5) Lymphocytes # (Auto) 1.59 K/uL (1.2-3.4) Monocytes # (Auto) 1.33 K/uL (0.11-0.59) Eosinophils # (Auto) 0.22 K/uL (0-0.5) Basophils # (Auto) 0.02 K/uL (0-0.2) RDW Standard Deviation 45.7 fL (36.4-46.3) RDW Coefficient of Variation 15.2 % (11.5-14.5) Immature Granulocyte % (Auto) 0.4 % Immature Granulocyte # (Auto) 0.06 K/uL (0.00-0.02) Anion Gap 7.0 mmol/L (3-11) Est Creatinine Clear Calc Drug Dose 44.4 ml/min Estimated GFR () 55.6 Estimated GFR (Non- 48.0 BUN/Creatinine Ratio 10.9 (10-20) Calcium Level 9.1 mg/dl (8.5-10.1) Pro-B-Type Natriuretic Peptide 6948 pg/ml (0-900) Arterial Blood pH 7.36 (7.35-7.45) Arterial Blood Partial Pressure CO2 41 mmHg (35-46) Arterial Blood Partial Pressure O2 179 mm/Hg (80-95) Arterial Blood HCO3 23 mmol/L (19-24) Arterial Blood Oxygen Saturation 99.3 % (90-95) Arterial Blood Base Excess -2.6 mEq/L (-9-1.8) Arterial Blood Gas Delivery 100% Greg Test POS (POS) Magnesium Level 1.8 mg/dl (1.8-2.4) Thyroid Stimulating Hormone (TSH) < 0.005 uIu/ml (0.300-4.500) Free Thyroxine 3.43 ng/dl (0.80-1.60) Total Triiodothyronine 1.39 ng/ml (0.60-1.81) Troponin I 4.670 ng/ml (0-0.045) Triglycerides Level 141 mg/dl (0-150) Cholesterol Level 142 mg/dl (0-200) HDL Cholesterol 30 mg/dl LDL Cholesterol, Calculated 84 mg/dl VLDL Cholesterol, Calculated 28 mg/dl Cholesterol/HDL Ratio 4.7 Test 11/02/17 14:36 11/02/17 14:45 11/02/17 20:35 11/02/17 20:36 Blood Gas Sample Site R Radial Bedside Blood Gas pH (LAB) 7.44 (7.35-7.45) Bedside Blood Gas pCO2 (LAB) 33 mmHg (35-46) Bedside Blood Gas pO2 (LAB) 112 mmHg (80-95) Bedside Blood Gas HCO3 (LAB) 22 meq/L (19-24) Bedside Blood Gas Total CO2 23 mEq/l (24-31) Bedside Blood Gas Base Excess (LAB) -2.0 meq/L (-9-1.8) Bedside Blood Gas O2 Saturation 99.0 % (90-95) Greg Test Pass Oxygen Delivery Device BIPAP Bedside Oxygen Rate (breaths/min) 12 Bedside FiO2 35 % Blood Gas IPAP 12 Lactic Acid Level 0.9 mmol/L (0.4-2.0) Total Bilirubin 0.6 mg/dl (0.2-1) Direct Bilirubin 0.1 mg/dl (0-0.2) Aspartate Amino Transf (AST/SGOT) 26 U/L (15-37) Alanine Aminotransferase (ALT/SGPT) 16 U/L (12-78) Alkaline Phosphatase 73 U/L (45-117) Ammonia 25.6 umol/L (11-32) Total Protein 5.8 gm/dl (6.4-8.2) Albumin 2.8 gm/dl (3.4-5.0) Bedside Glucose 128 mg/dl (70-90) Activated Partial Thromboplast Time 75.1 SECONDS (21.0-31.0) Partial Thromboplastin Ratio 2.9 Date/Time Source Procedure Growth Status 11/02/17 05:28 Blood Blood Culture Pending Received 11/02/17 07:45 Nasal MRSA DNA Surveillance Screen - Final Specimen Negative for MRSA by DNA Probe Complete Last 24 Hours Test 11/02/17 03:47 11/02/17 03:48 11/02/17 05:28 11/02/17 11:44 Prothrombin Time 11.7 SECONDS Prothromb Time International Ratio 1.1 Activated Partial Thromboplast Time 25.1 SECONDS 34.8 SECONDS Partial Thromboplastin Ratio 1.0 1.3 Procalcitonin < 0.05 ng/ml White Blood Count 14.78 K/uL Red Blood Count 4.48 M/uL Hemoglobin 12.2 g/dL Hematocrit 37.7 % Mean Corpuscular Volume 84.2 fL Mean Corpuscular Hemoglobin 27.2 pg Mean Corpuscular Hemoglobin Concent 32.4 g/dl Platelet Count 403 K/uL Mean Platelet Volume 8.9 fL Neutrophils (%) (Auto) 78.2 % Lymphocytes (%) (Auto) 10.8 % Monocytes (%) (Auto) 9.0 % Eosinophils (%) (Auto) 1.5 % Basophils (%) (Auto) 0.1 % Neutrophils # (Auto) 11.56 K/uL Lymphocytes # (Auto) 1.59 K/uL Monocytes # (Auto) 1.33 K/uL Eosinophils # (Auto) 0.22 K/uL Basophils # (Auto) 0.02 K/uL RDW Standard Deviation 45.7 fL RDW Coefficient of Variation 15.2 % Immature Granulocyte % (Auto) 0.4 % Immature Granulocyte # (Auto) 0.06 K/uL Sodium Level 138 mmol/L Potassium Level 3.8 mmol/L Chloride Level 108 mmol/L Carbon Dioxide Level 23 mmol/L Anion Gap 7.0 mmol/L Blood Urea Nitrogen 12 mg/dl Creatinine 1.12 mg/dl Est Creatinine Clear Calc Drug Dose 44.4 ml/min Estimated GFR () 55.6 Estimated GFR (Non- 48.0 BUN/Creatinine Ratio 10.9 Random Glucose 129 mg/dl Calcium Level 9.1 mg/dl Total Bilirubin 0.5 mg/dl Direct Bilirubin < 0.1 mg/dl Aspartate Amino Transf (AST/SGOT) 23 U/L Alanine Aminotransferase (ALT/SGPT) 19 U/L Alkaline Phosphatase 85 U/L Troponin I 1.910 ng/ml 3.560 ng/ml 4.670 ng/ml Pro-B-Type Natriuretic Peptide 6948 pg/ml Total Protein 6.9 gm/dl Albumin 3.1 gm/dl Arterial Blood pH 7.36 Arterial Blood Partial Pressure CO2 41 mmHg Arterial Blood Partial Pressure O2 179 mm/Hg Arterial Blood HCO3 23 mmol/L Arterial Blood Oxygen Saturation 99.3 % Arterial Blood Base Excess -2.6 mEq/L Arterial Blood Gas Delivery 100% Greg Test POS Lactic Acid Level 1.4 mmol/L Magnesium Level 1.8 mg/dl Thyroid Stimulating Hormone (TSH) < 0.005 uIu/ml Free Thyroxine 3.43 ng/dl Total Triiodothyronine 1.39 ng/ml Triglycerides Level 141 mg/dl Cholesterol Level 142 mg/dl HDL Cholesterol 30 mg/dl LDL Cholesterol, Calculated 84 mg/dl VLDL Cholesterol, Calculated 28 mg/dl Cholesterol/HDL Ratio 4.7 Test 11/02/17 14:21 Date/Time Source Procedure Growth Status 11/02/17 05:28 Blood Blood Culture Pending Received 11/02/17 05:27 Blood Blood Culture Pending Received 11/02/17 07:45 Nasal MRSA DNA Surveillance Screen - Final Specimen Negative for MRSA by DNA Probe Complete Assessment & Plan 77 yo F who recently picked up smoking presents with acute respiratory failure 2 /2 pulmonary edema. She was placed on BIPAP and admitted to the ICU this morning. She was intolerant of NC and was required to go back on the BIPAP. She is confused and disoriented and ROS/history cannot be obtained from her at this time. 1. Acute respiratory failure 2/2 Acute pulmonary edema 2/2 atrial fibrillation with RVR-echo pending, diuretics and nitro were given with good result. Appreciate ICU management. 2. New onset atrial fibrillation-rate control attempt with adenosine en route to hospital was unsuccessful, HR improved with diltiazem to low 100s. She is on a heparin drip and Toprol. Appreciate cardiology input. 3. NSTEMI-uncertain if infarction vs demand ischemia from rapid afib. Treating medically with heparin at this time. Pt denies chest pain, however, is clearly confused. Cont Toprol XL, nitro paste q6h 4. HTN-controlled, cont Losartan 50mg qHS 5. Smoker-encouraged to quit. Will reinforce the importance of this when she is more alert and oriented. 6. Hyperthyroidism-2/2 exogenous Synthroid overdosing. Need to reduce the dose of Synthroid replacement and recheck in 6 weeks as outpatient. May be a trigger for the atrial fib. DVT prophy-heparin Full Code Dispo-ICU, uncertain at this time. Chelsy Knight DO [facility] Hospitalist Consultants: ICU-Joshua Kang Current Inpatient Medications: Current Inpatient Medications Medications (Trade) Dose Ordered Sig/[place] Route Start Time Stop Time Status Last Admin Dose Admin Heparin Sodium/ Dextrose 500 ml @ 28 mls/hr [id number] IV 11/02/17 05:30 11/09/17 05:29 Ipratropium [place] (Atrovent 0.02% 0.5MG/2.5ML Neb) 0.5 mg Q4H PRN INH 11/02/17 05:30 12/02/17 05:29 Levalbuterol (Xopenex 1.25MG/ 0.5ML Neb) 1.25 mg Q4H PRN INH 11/02/17 05:30 12/02/17 05:29 Nitroglycerin (Nitrostat Tab) 0.4 mg UD PRN SL 11/02/17 06:30 12/02/17 06:29 Tramadol HCl (Ultram Tab) 25 mg Q6H PRN PO 11/02/17 06:30 12/02/17 06:29 Prochlorperazine Edisylate 5 mg/ Syringe 5 ml @ 5 mls/min Q6H PRN IV 11/02/17 06:30 12/02/17 06:29 Morphine Sulfate (MoRPHine SULFATE INJ) 4 mg Q4H PRN IV 11/02/17 06:30 11/16/17 06:29 Clonazepam (Klonopin Tab) 0.5 mg TID PRN PO 11/02/17 06:30 12/02/17 06:29 Docusate Sodium (coLACE CAP) 100 mg BID PO 11/02/17 09:00 12/02/17 08:59 11/02/17 08:16 100 MG Paroxetine HCl (pAXil TAB) 40 mg DAILY PO 11/02/17 09:00 12/02/17 08:59 11/02/17 08:21 40 MG Ropinirole HCl (Requip Tab) 0.5 mg TID PRN PO 11/02/17 06:30 12/02/17 06:29 Tolterodine Tartrate (Detrol Tab) 2 mg BID PO 11/02/17 09:00 12/02/17 08:59 11/02/17 08:21 2 MG Ferrous Sulfate (Feosol Tab) 325 mg DAILY PO 11/02/17 09:00 12/02/17 08:59 11/02/17 08:21 325 MG Furosemide 40 mg/ Syringe 4 ml @ 4 mls/min BID17 IV 11/02/17 17:00 12/02/17 16:59 Acetaminophen (Tylenol Tab) 650 mg Q4H PRN PO 11/02/17 06:30 12/02/17 06:29 Nitroglycerin (Nitroglycerin 2% Oint) 1 inch Q6H EXT 11/02/17 08:00 12/02/17 07:59 11/02/17 08:20 1 INCH Miscellaneous Information (Icu Protocol For Hyperglycemia) 1 ea PRN PRN N/A 11/02/17 06:30 11/04/17 06:29 Aspirin (Ecotrin Tab) 81 mg DAILY PO 11/03/17 09:00 12/03/17 08:59 Pantoprazole Sodium (Protonix Tab) 40 mg QAM PO 11/02/17 09:00 12/02/17 08:59 11/02/17 08:21 40 MG Losartan Potassium (coZAAR TAB) 50 mg HS PO 11/02/17 21:00 12/02/17 08:59 Metoprolol Succinate (Toprol Xl Tab) 50 mg QAM PO 11/03/17 09:00 12/03/17 08:59 Miscellaneous Information (Nursing Decision Medication Order) 1 ea UD N/A 11/02/17 14:30 12/02/17 14:29 UNV
[2017-11-03] VITALS (10 sets, daily range): BP systolic 113–166; BP diastolic 62–88; PULSE 71–96; TEMP 36.8–37.3; O2SAT 93–98; Ht 152.4 cm; Wt 84.7 kg
[2017-11-03] MEDS: NITROGLYCERIN 2% OINTMENT 30GM TUBE EXT SCH ×4 (02:25→20:36)
[2017-11-03 04:02] LABS: HEMATOCRIT 27.4 % (37-47); HEMOGLOBIN 8.8 g/dL (12.0-16.0); MEAN CELL VOLUME 83.8 fL (80-100); MEAN CORPUSCULAR HEMOGLOBIN 26.9 pg (25-34); MEAN CORPUSCULAR HGB CONC 32.1 g/dl (32-36); PLATELET COUNT 244 K/uL (130-400); RED CELL DISTRIBUTION WIDTH CV 15.5 % (11.5-14.5); RED CELL DISTRIBUTION WIDTH SD 47.3 fL (36.4-46.3); WHITE BLOOD COUNT 7.48 K/uL (4.8-10.8)
[2017-11-03 04:17] LABS: CALCIUM 8.8 mg/dl (8.5-10.1); POTASSIUM 3.3 mmol/L (3.5-5.1)
[2017-11-03 04:19] LABS: PTT PATIENT 52.1 SECONDS (21.0-31.0)
[2017-11-03 04:20] LABS: BASO % 0.1 %; BASO ABS # 0.01 K/uL (0-0.2); EOS % 3.6 %; EOS ABS # 0.27 K/uL (0-0.5); IG# 0.01 K/uL (0.00-0.02); LYMPH % 27.8 %; LYMPH ABS # 2.08 K/uL (1.2-3.4); MONO ABS # 0.75 K/uL (0.11-0.59); NEUT % 58.4 %; NEUT ABS # 4.36 K/uL (1.4-6.5)
[2017-11-03 04:23] LABS: PHOSPHORUS 3.4 mg/dl (2.5-4.9)
[2017-11-03] MEDS ORDERED: POTASSIUM CHLORIDE 20 MEQ TABCR PO STA (05:16)
--- NOTE | 2017-11-03 06:29 | DIAGNOSTIC IMAGING REPORT ---
CT OF THE ABDOMEN AND PELVIS WITHOUT CONTRAST, STONE PROTOCOL CLINICAL HISTORY: Abdominal pain. Drop in hematocrit. Anticoagulation. COMPARISON STUDY: None. TECHNIQUE: Helical axial images of the abdomen and pelvis were obtained without IV or oral contrast according to renal stone protocol. A dose lowering technique was utilized adhering to the principles of ALARA. FINDINGS: The heart is moderately enlarged. Small right and trace left pleural effusions are noted with interlobular septal thickening consistent with interstitial pulmonary edema. No pneumatosis, free air or portal venous gas is present. No hemoperitoneum is present. There is no retroperitoneal hematoma. Evaluation of the abdomen and pelvis is suboptimal on this unenhanced exam. The liver, spleen, adrenal glands, kidneys and pancreas are unremarkable. The right renal sinus calcifications likely vascular in etiology. There is no evidence for a bowel obstruction. Caliber of small large bowel are normal. Appendix is normal. A full of blood is present within the bladder. There is colonic diverticulosis without evidence for acute diverticulitis. There are no suspicious osseous lesions. Extensive atherosclerotic plaque of the abdominal aorta is noted. Small fat-containing umbilical hernia is present. IMPRESSION: 1. No acute process within the abdomen or pelvis on unenhanced exam. No hemoperitoneum. No retroperitoneal hematoma. 2. Small right and trace left pleural effusions with mild interstitial edema within the lower lungs. Electronically signed by: Ramos Horton M.D. 11/03/2017 6:28 AM Dictated Date/Time: 11/03/2017 6:23 AM
--- NOTE | 2017-11-03 07:08 | DIAGNOSTIC IMAGING REPORT ---
CHEST ONE VIEW PORTABLE CLINICAL HISTORY: pulm edema dyspnea COMPARISON STUDY: 11/02/2017 FINDINGS: Considerable improvement of the bilateral parenchymal infiltrative changes and/or pulmonary edema. Diaphragms remain smooth. Costophrenic angles are sharp. IMPRESSION: Improving parenchymal infiltrates versus pulmonary edema. Mild residual. The above report was generated using voice recognition software. It may contain grammatical, syntax or spelling errors. Electronically signed by: Roderick Rosario M.D. 11/03/2017 7:06 AM Dictated Date/Time: 11/03/2017 7:05 AM
--- NOTE | 2017-11-03 07:47 | Critical Care Progress Note ---
Critical Care Progress Note Date of Service November 03, 2017. Critical Care Progress Note After assessment with morning labs, the patient was found to have significant drop in her H&H from prior. Patient was reevaluated bedside by myself. Her abdomen is soft and nontender to palpation. She is complaining of some indigestion but denies any other discomfort. She has no flank pain or flank ecchymosis. Patient did pull out her Brandon catheter with inflated balloon earlier in the day. Because of this, a CT without contrast was obtained for evaluation of sources of loss of blood. Repeat CBC was ordered for 8 AM and type and screen were also ordered. I have personally spent 25 minutes of critical care time in the direct management of this patient. This is a life/limb threatening event. This includes time spent evaluating patient, direct bedside care, chart review, placing orders, interpretation of diagnostic studies, discussion with consultants, patient, and family members, as well as other required patient management activities. This time is exclusive of all separately billable procedures, and teaching time and separate from and in addition to any other critical care service time.
[2017-11-03 08:14] LABS: HEMATOCRIT 28.4 % (37-47); HEMOGLOBIN 9.3 g/dL (12.0-16.0); MEAN CELL VOLUME 83.8 fL (80-100); MEAN CORPUSCULAR HEMOGLOBIN 27.4 pg (25-34); MEAN CORPUSCULAR HGB CONC 32.7 g/dl (32-36); MEAN PLATELET VOLUME 8.8 fL (7.4-10.4); PLATELET COUNT 245 K/uL (130-400); RED CELL DISTRIBUTION WIDTH CV 15.4 % (11.5-14.5); WHITE BLOOD COUNT 7.76 K/uL (4.8-10.8)
[2017-11-03] MEDS: ASPIRIN 81 MG ECTAB PO SCH (08:41)
[2017-11-03] MEDS: PANTOprazole SOD 40 MG TAB PO SCH (08:42)
[2017-11-03] MEDS: FERROUS SULFATE 325 MG TAB PO SCH (08:42)
[2017-11-03] MEDS: TOLTERODINE TARTRATE 2 MG TAB PO SCH ×2 (08:42→20:35)
[2017-11-03] MEDS: DOCUSATE SODIUM 100 MG CAP PO SCH ×2 (08:42→20:27)
[2017-11-03] MEDS: LOSARTAN POTASSIUM 25 MG TAB PO SCH (08:43)
[2017-11-03] MEDS: FUROSEMIDE INJ 40 MG in SYRINGE 0 ML IV SCH ×2 (08:43→17:40)
[2017-11-03] MEDS: PAROXETINE 20 MG TAB PO SCH (08:43)
[2017-11-03] MEDS ORDERED: METOPROLOL SUCC 50MG EXT REL TAB PO SCH ×2 (09:00)
[2017-11-03] MEDS ORDERED: METOPROLOL SUCC 50MG EXT REL TAB PO STA (09:27)
--- NOTE | 2017-11-03 10:01 | Clinical Documentation Query ---
QUERY 1 OF [address] ARRIETA, In your clinical opinion is this patient being managed for: ( ) Acute diastolic CHF ( ) Not Agree ( x ) Other explanation of clinical findings (Please Explain. If no explanation given, this would be considered a no response.) Acute pulmonary edema 2/2 atrial fibrillation with RVR ( ) Unable to determine ( ) Need to Discuss (Please call CDS via extension or qliq. If no interaction occurs this is considered a no response.) The medical record reflects the following clinical findings, treatment, and risk factors. Clinical Indicators: 77 yo female presenting with severe dyspnea. BNP 6948. Progress note 11/02 indicates "acute heart failure", ECHO was pending at time of documentation. ECHO showed EF 55-60%. Treatment: IV lasix bid, cardiology consult, ICU monitoring, serial cardiac enzymes, IV heparin, O2 support/BIPAP, strict IOs, daily weights, CHF education Risk Factors:age, HTN, A fib RVR QUERY 2 OF 2 In your clinical opinion is this patient being managed for: ( x ) Encephalopathy ( ) Not Agree ( ) Other explanation of clinical findings (Please Explain. If no explanation given, this would be considered a no response.) ( ) Unable to determine ( ) Need to Discuss (Please call CDS via extension or qliq. If no interaction occurs this is considered a no response.) The medical record reflects the following clinical findings, treatment, and risk factors. Clinical Indicators: Pt presented alert and oriented x 4. Progressed to increasing confusion, pulling IV's and powers out, getting OOB. Pt has since returned to being A/O x 3 Treatment: 1:1 OBS, ICU monitoring, serial labs, BIPAP Risk Factors: Acute respiratory failure, acute diastolic CHF, NSTEMI, A fib RV Please clarify and document your clinical opinion in the progress notes and discharge summary. Terms such as "probable", "suspected", "likely", "questionable", "possible", or "still to be ruled out" are acceptable. IF IN AGREEMENT, YOU MUST DOCUMENT ABOVE DIAGNOSTIC STATEMENT IN DAILY PROGRESS NOTES AND DISCHARGE SUMMARY. This document is not part of the patient's record. Thank You, Jerica Tripathi RN [phone]
--- NOTE | 2017-11-03 10:13 | PROGRESS NOTE ---
DATE: 11/03/2017 The patient seen and examined. Chart, medications, telemetry reviewed. SUBJECTIVE: The patient has remained in sinus rhythm overnight, though has had difficulties with mental status changes and agitation since admission. This morning denies any chest pain but does note some pleuritic discomfort on deep inspiration. Notes no fevers, chills or productive cough. Complaining of difficulties with restless legs. Heart rates are elevated. Blood pressures have been well controlled. OBJECTIVE: VITAL SIGNS: Heart rate is 92, blood pressure is 143/80. HEENT: Normocephalic and atraumatic. Nares without discharge. Throat was clear. NECK: Thin. There is no distinct jugular venous distention. LUNGS: Reveal mild crackles basilar. CARDIOVASCULAR: Regular with a grade 1/6 systolic murmurs, no diastolic murmur. ABDOMEN: Soft, nontender. EXTREMITIES: Without cyanosis or clubbing. There is trace peripheral edema. LABORATORY DATA: Sodium is 138, potassium is 3.3, chloride is 107, bicarbonate is 27, BUN is 17, creatinine is 1.0. Troponin peaked at 4.6 x 1.1 this morning. The patient is appropriately anticoagulated. IMPRESSION: A 77-year-old female presented with atrial fibrillation with very rapid ventricular response with associated non-ST segment elevation myocardial infarction. She spontaneously converted to sinus rhythm. Events being driven by hyperthyroidism, iatrogenic. RECOMMENDATIONS: Continue IV heparin anticoagulation for time being. I agree with additional dose of furosemide given. Overall systolic function was preserved. There was segmental wall motion noticed on echo. We will plan on increasing Toprol dosing. Venous Doppler lower extremities will be ordered due to chronic leg pain on presentation. Depending on clinical course, could consider for diagnostic cardiac catheterization given septal wall motion abnormality on echocardiogram and elevated troponins. Currently, the patient unable to give consent and clinically stable. Will follow closely.
--- NOTE | 2017-11-03 10:22 | Critical Care Progress Note ---
Critical Care Progress Note Date of Service November 03, 2017. Attending Dr. Lewis Subjective Spoke with patient this morning. Awake, alert, eating breakfast, and smiling. She says that she has some discomfort in her back due to scoliosis. She also complained earlier to nursing staff that her neck was sore. She told me that her chest does not hurt even though she thinks it probably should. She denies any shortness of breath. She denies any other acute concerns, stating overall she felt well. Objective General Appearance: Awake, alert & oriented to person and place (hospital) and time but not location, comfortable in general, NAD. CV: +S1S2 RRR, no murmur. Pulm: Clear to auscultation bilaterally. Abdomen: +BS, soft, non-tender, non-distended. Extremities: 1+ bilateral pretibial edema. Moving all extremities naturally and easily. Bilateral knee replacement surgical scars. Neuro: No gross neuro deficits. Assessment & Plan 77-year-old female admitted on 02 Nov 2017 for acute shortness of breath, acute heart failure, and A. fib with RVR. PMH: HTN, hypothyroidism, GERD, arthritis, hemorrhoids, PVD, question of prior TIA, tobacco use. PSH: Bilateral knee replacements. 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 Mental status much improved this morning. Remains mildly confused. No focal neurological deficits on exam. On Paxil, clonazepam, Requip, and Ultram. Pulm: Acute hypoxic respiratory failure secondary to acute heart failure. BiPAP overnight, now SpO2 95% on 4 L NC this a.m. Much improved CXR. No known underlying pulmonary disease. Xopenex and Atrovent nebs available prn. Smoking cessation process ordered. CVS: New diagnosis of A. fib with RVR. Presently in sinus rhythm. On heparin. Elevated TnI and echo suggest NSTEMI. TnI since trended downwards. This morning's EKG notes A. fib with RVR but otherwise no acute ST-T wave changes. BNP suggestive of acute heart failure. Presently net negative 1.1 liters. Goal for an additional negative 1 liter today. Overall on aspirin, Lasix 40 mg twice daily, losartan 50 daily, and metoprolol 50 daily. - Reportedly prior history of muscle cramping on statins. Will defer starting a statin to cardiology recommendations. ID: Afebrile, WBC down to 7, procalcitonin and lactate negative. Do not suspect an acute infectious issue. 02May BCx x2 pending. Endo: No known history of DM. Monitoring glucose here. Does have PMH hypothyroidism. TSH and free T4 suggests elevated thyroid hormone levels, perhaps due to her high Synthroid home dose. Continuing to hold her Synthroid as inpatient. Thyroid antibody panel pending. - Consider home safety evaluation to see if patient is taking excess of her prescription meds. Renal/Lytes: Cr 1.0. Mild hypokalemia, replacing. Brandon present, monitoring I' s and O's. On Detrol. GI: No noted acute abdominal issues. LFTs okay. PMH of chronic dysphasia. On Protonix and Colace. AHA diet. Heme: Hb dropped from 12 to 8.8. Perhaps dilutional. blocker and cutter contact lens CT a/p did not note evidence of bleeding. Recheck Hb 9.3 five hours later. Platelets 96. On heparin drip. On ferrous sulfate daily. - Will check H&H every 12 hours acutely. DVT prophy: Heparin drip (for A. fib). Lines: PIV 3. Brandon catheter. Code status: Full code. PT/OT: Ordered. Disposition: Stable for transfer to telemetry. Resident Physician Supervision Note: Dr. Contreras was resident physician during care of patient. I separately evaluated patient and did history and exam. I discussed the case with the resident and generally agree with the findings and plan. Drop in H&H, ordered repeat H&H for later today, no overt signs of bleeding underwent CT scan which did not reveal retroperitoneal hematoma. She is 1 L negative, we are continuing to hold her Synthroid stable for downgrade to telemetry status today Documented By: Saurabh Lewis DO Consults & Procedures Consultants: Cardiology Data Medications: Current Inpatient Medications Medications (Trade) Dose Ordered Sig/[place] Route Start Time Stop Time Status Last Admin Dose Admin Heparin Sodium/ Dextrose 500 ml @ 27 mls/hr [id number] IV 11/02/17 05:30 11/09/17 05:29 11/02/17 22:01 27 MLS/HR Ipratropium [place] (Atrovent 0.02% 0.5MG/2.5ML Neb) 0.5 mg Q4H PRN INH 11/02/17 05:30 12/02/17 05:29 Levalbuterol (Xopenex 1.25MG/ 0.5ML Neb) 1.25 mg Q4H PRN INH 11/02/17 05:30 12/02/17 05:29 Nitroglycerin (Nitrostat Tab) 0.4 mg UD PRN SL 11/02/17 06:30 12/02/17 06:29 Tramadol HCl (Ultram Tab) 25 mg Q6H PRN PO 11/02/17 06:30 12/02/17 06:29 Prochlorperazine Edisylate 5 mg/ Syringe 5 ml @ 5 mls/min Q6H PRN IV 11/02/17 06:30 12/02/17 06:29 Morphine Sulfate (MoRPHine SULFATE INJ) 4 mg Q4H PRN IV 11/02/17 06:30 11/16/17 06:29 Clonazepam (Klonopin Tab) 0.5 mg TID PRN PO 11/02/17 06:30 12/02/17 06:29 11/02/17 16:34 0.5 MG Docusate Sodium (coLACE CAP) 100 mg BID PO 11/02/17 09:00 12/02/17 08:59 11/03/17 08:42 100 MG Paroxetine HCl (pAXil TAB) 40 mg DAILY PO 11/02/17 09:00 12/02/17 08:59 11/03/17 08:43 40 MG Ropinirole HCl (Requip Tab) 0.5 mg TID PRN PO 11/02/17 06:30 12/02/17 06:29 11/02/17 20:47 0.5 MG Tolterodine Tartrate (Detrol Tab) 2 mg BID PO 11/02/17 09:00 12/02/17 08:59 11/03/17 08:42 2 MG Ferrous Sulfate (Feosol Tab) 325 mg DAILY PO 11/02/17 09:00 12/02/17 08:59 11/03/17 08:42 325 MG Furosemide 40 mg/ Syringe 4 ml @ 4 mls/min BID17 IV 11/02/17 17:00 12/02/17 16:59 Future Hold 11/03/17 08:43 4 MLS/MIN Acetaminophen (Tylenol Tab) 650 mg Q4H PRN PO 11/02/17 06:30 12/02/17 06:29 Nitroglycerin (Nitroglycerin 2% Oint) 1 inch Q6H EXT 11/02/17 08:00 12/02/17 07:59 11/03/17 08:51 1 INCH Miscellaneous Information (Icu Protocol For Hyperglycemia) 1 ea PRN PRN N/A 11/02/17 06:30 11/04/17 06:29 Aspirin (Ecotrin Tab) 81 mg DAILY PO 11/03/17 09:00 12/03/17 08:59 11/03/17 08:41 81 MG Pantoprazole Sodium (Protonix Tab) 40 mg QAM PO 11/02/17 09:00 12/02/17 08:59 11/03/17 08:42 40 MG Losartan Potassium (coZAAR TAB) 25 mg QAM PO 11/03/17 09:00 12/03/17 08:59 11/03/17 08:43 25 MG Metoprolol Succinate (Toprol Xl Tab) 75 mg QAM PO 11/04/17 09:00 12/03/17 08:59 Potassium Chloride (Klor-Con M10) 40 meq ONE ONCE PO 11/03/17 12:00 11/03/17 12:01 Vital Signs: Date Time Temp Pulse Resp B/P (MAP) Pulse Ox O2 Delivery O2 Flow Rate FiO2 11/03/17 05:01 92 19 95 11/03/17 04:01 36.8 85 23 143/80 (101) 94 11/03/17 04:00 97 BiPAP 30 11/03/17 02:01 88 18 142/65 (90) 98 11/03/17 00:01 37.2 87 22 125/63 (83) 95 BiPAP 30 11/02/17 23:59 98 BiPAP 30 11/02/17 22:05 95 30 11/02/17 22:01 84 20 117/66 (83) 95 BiPAP 30 11/02/17 20:11 96 17 125/89 (101) 96 BiPAP 30 11/02/17 20:01 37.0 91 20 153/78 (103) 96 BiPAP 30 11/02/17 20:00 100 BiPAP 30 11/02/17 18:01 93 17 92/62 (72) 93 Nasal Cannula 3.0 11/02/17 16:55 97 30 11/02/17 16:01 36.7 87 19 132/65 (87) 95 BiPAP 30 11/02/17 16:00 100 BiPAP 30 11/02/17 14:10 100 50 11/02/17 14:00 82 18 86/63 (71) 99 BiPAP 50 11/02/17 12:41 35 11/02/17 12:00 95 Nasal Cannula 3.0 11/02/17 12:00 37.0 102 24 109/61 (77) 95 Nasal Cannula 3.0 Laboratory Results: Last 24 Hours Test 11/02/17 11:44 11/02/17 14:36 11/02/17 14:45 11/02/17 16:25 Activated Partial Thromboplast Time 34.8 SECONDS Partial Thromboplastin Ratio 1.3 Troponin I 4.670 ng/ml Triglycerides Level 141 mg/dl Cholesterol Level 142 mg/dl HDL Cholesterol 30 mg/dl LDL Cholesterol, Calculated 84 mg/dl VLDL Cholesterol, Calculated 28 mg/dl Cholesterol/HDL Ratio 4.7 Blood Gas Sample Site R Radial Bedside Blood Gas pH (LAB) 7.44 Bedside Blood Gas pCO2 (LAB) 33 mmHg Bedside Blood Gas pO2 (LAB) 112 mmHg Bedside Blood Gas HCO3 (LAB) 22 meq/L Bedside Blood Gas Total CO2 23 mEq/l Bedside Blood Gas Base Excess (LAB) -2.0 meq/L Bedside Blood Gas O2 Saturation 99.0 % Greg Test Pass Oxygen Delivery Device BIPAP Bedside Oxygen Rate (breaths/min) 12 Bedside FiO2 35 % Blood Gas IPAP 12 Lactic Acid Level 0.9 mmol/L Total Bilirubin 0.6 mg/dl Direct Bilirubin 0.1 mg/dl Aspartate Amino Transf (AST/SGOT) 26 U/L Alanine Aminotransferase (ALT/SGPT) 16 U/L Alkaline Phosphatase 73 U/L Ammonia 25.6 umol/L Total Protein 5.8 gm/dl Albumin 2.8 gm/dl Bedside Glucose 119 mg/dl Test 11/02/17 20:35 11/02/17 20:36 11/02/17 23:54 11/03/17 03:45 Bedside Glucose 128 mg/dl 117 mg/dl Activated Partial Thromboplast Time 75.1 SECONDS 52.1 SECONDS Partial Thromboplastin Ratio 2.9 2.0 White Blood Count 7.48 K/uL Red Blood Count 3.27 M/uL Hemoglobin 8.8 g/dL Hematocrit 27.4 % Mean Corpuscular Volume 83.8 fL Mean Corpuscular Hemoglobin 26.9 pg Mean Corpuscular Hemoglobin Concent 32.1 g/dl Platelet Count 244 K/uL Mean Platelet Volume 9.0 fL Neutrophils (%) (Auto) 58.4 % Lymphocytes (%) (Auto) 27.8 % Monocytes (%) (Auto) 10.0 % Eosinophils (%) (Auto) 3.6 % Basophils (%) (Auto) 0.1 % Neutrophils # (Auto) 4.36 K/uL Lymphocytes # (Auto) 2.08 K/uL Monocytes # (Auto) 0.75 K/uL Eosinophils # (Auto) 0.27 K/uL Basophils # (Auto) 0.01 K/uL RDW Standard Deviation 47.3 fL RDW Coefficient of Variation 15.5 % Immature Granulocyte % (Auto) 0.1 % Immature Granulocyte # (Auto) 0.01 K/uL Red Blood Cell Morphology Unremarkable Sodium Level 138 mmol/L Potassium Level 3.3 mmol/L Chloride Level 107 mmol/L Carbon Dioxide Level 27 mmol/L Anion Gap 4.0 mmol/L Blood Urea Nitrogen 17 mg/dl Creatinine 1.00 mg/dl Est Creatinine Clear Calc Drug Dose 49.0 ml/min Estimated GFR () 63.8 Estimated GFR (Non- 55.1 BUN/Creatinine Ratio 17.0 Random Glucose 96 mg/dl Calcium Level 8.8 mg/dl Phosphorus Level 3.4 mg/dl Magnesium Level 1.8 mg/dl Free Thyroxine 2.85 ng/dl Free Triiodothyronine 4.28 pg/ml Test 11/03/17 05:06 11/03/17 08:04 Total Creatine Kinase 42 U/L Creatine Kinase MB 2.0 ng/ml Creatine Kinase MB Ratio 4.8 Troponin I 1.130 ng/ml White Blood Count 7.76 K/uL Red Blood Count 3.39 M/uL Hemoglobin 9.3 g/dL Hematocrit 28.4 % Mean Corpuscular Volume 83.8 fL Mean Corpuscular Hemoglobin 27.4 pg Mean Corpuscular Hemoglobin Concent 32.7 g/dl RDW Standard Deviation 47.0 fL RDW Coefficient of Variation 15.4 % Platelet Count 245 K/uL Mean Platelet Volume 8.8 fL Resident Tracking Resident Involvement: Resident Care Provided Care Provided: Adult Hospital Medicine (ICU)
[2017-11-03] MEDS: ACETAMINOPHEN 500 MG TAB PO SCH ×2 (11:47→20:36)
[2017-11-03] MEDS ORDERED: POTASSIUM CHLORIDE 10 MEQ TABCR PO ONE (12:00)
--- NOTE | 2017-11-03 12:05 | Progress Note ---
Medicine Progress Note Date & Time of Visit: November 03, 2017 at 10:19. Subjective 77 yo F who recently picked up smoking presents with acute respiratory failure 2 /2 pulmonary edema. She was placed on BIPAP and admitted to the ICU overnight with improvement. She was intolerant of NC and was required to go back on the BIPAP but was subsequently weaned to nasal canula. She is confused and disoriented and ROS/history cannot be obtained from her at this time. She has diuresed >1L with 3 doses furosemide since admission; CXR this morning is much improved compared to yesterday. A CT a/p was performed yesterday to rule out bleeding and was negative. She remains on the heparin drip. She is able to swallow and is tolerating PO per nursing staff. The patient reports to me that her neck is sore. Objective Last 8 Hrs Date Time Temp Pulse Resp B/P (MAP) Pulse Ox O2 Delivery O2 Flow Rate FiO2 11/03/17 05:01 92 19 95 11/03/17 04:01 36.8 85 23 143/80 (101) 94 11/03/17 04:00 97 BiPAP 30 Physical Exam: GEN: obese, in no acute distress, alert and disoriented to place and time. Able to follow instructions, does not appear delirious. HEENT: NC/AT, normal sclerae CARDIO: reg rate, S1/2 heard without m/g/r LUNGS: CTA bilaterally, no crackles, rales or wheezes, good diaphragmatic excursion ABD: soft, non-tender, non-distended, no rebound or guarding EXTREMITY: RP and DP palpable 2+ bilat, no LE swelling or edema, extremities are warm and well-perfused NEURO: CN 2-12 grossly intact, exam limited as patient confused. MUSC: generalized weakness, exam is limited as patient is confused. SKIN: warm and dry Laboratory Results: 11/03/17 08:04 11/03/17 03:45 Test 11/02/17 03:47 11/02/17 03:48 11/02/17 05:28 11/02/17 11:44 Prothrombin Time 11.7 SECONDS (9.0-12.0) Prothromb Time International Ratio 1.1 (0.9-1.1) Procalcitonin < 0.05 ng/ml (0-0.5) Pro-B-Type Natriuretic Peptide 6948 pg/ml (0-900) Arterial Blood pH 7.36 (7.35-7.45) Arterial Blood Partial Pressure CO2 41 mmHg (35-46) Arterial Blood Partial Pressure O2 179 mm/Hg (80-95) Arterial Blood HCO3 23 mmol/L (19-24) Arterial Blood Oxygen Saturation 99.3 % (90-95) Arterial Blood Base Excess -2.6 mEq/L (-9-1.8) Arterial Blood Gas Delivery 100% Greg Test POS (POS) Thyroid Stimulating Hormone (TSH) < 0.005 uIu/ml (0.300-4.500) Total Triiodothyronine 1.39 ng/ml (0.60-1.81) Triglycerides Level 141 mg/dl (0-150) Cholesterol Level 142 mg/dl (0-200) HDL Cholesterol 30 mg/dl LDL Cholesterol, Calculated 84 mg/dl VLDL Cholesterol, Calculated 28 mg/dl Cholesterol/HDL Ratio 4.7 Test 11/02/17 14:36 11/02/17 14:45 11/02/17 23:54 11/03/17 03:45 Blood Gas Sample Site R Radial Bedside Blood Gas pH (LAB) 7.44 (7.35-7.45) Bedside Blood Gas pCO2 (LAB) 33 mmHg (35-46) Bedside Blood Gas pO2 (LAB) 112 mmHg (80-95) Bedside Blood Gas HCO3 (LAB) 22 meq/L (19-24) Bedside Blood Gas Total CO2 23 mEq/l (24-31) Bedside Blood Gas Base Excess (LAB) -2.0 meq/L (-9-1.8) Bedside Blood Gas O2 Saturation 99.0 % (90-95) Greg Test Pass Oxygen Delivery Device BIPAP Bedside Oxygen Rate (breaths/min) 12 Bedside FiO2 35 % Blood Gas IPAP 12 Lactic Acid Level 0.9 mmol/L (0.4-2.0) Total Bilirubin 0.6 mg/dl (0.2-1) Direct Bilirubin 0.1 mg/dl (0-0.2) Aspartate Amino Transf (AST/SGOT) 26 U/L (15-37) Alanine Aminotransferase (ALT/SGPT) 16 U/L (12-78) Alkaline Phosphatase 73 U/L (45-117) Ammonia 25.6 umol/L (11-32) Total Protein 5.8 gm/dl (6.4-8.2) Albumin 2.8 gm/dl (3.4-5.0) Bedside Glucose 117 mg/dl (70-90) Immature Granulocyte % (Auto) 0.1 % White Blood Count 7.48 K/uL (4.8-10.8) Red Blood Count 3.27 M/uL (4.2-5.4) Hemoglobin 8.8 g/dL (12.0-16.0) Hematocrit 27.4 % (37-47) Mean Corpuscular Volume 83.8 fL (80-100) Mean Corpuscular Hemoglobin 26.9 pg (25-34) Mean Corpuscular Hemoglobin Concent 32.1 g/dl (32-36) Platelet Count 244 K/uL (130-400) Mean Platelet Volume 9.0 fL (7.4-10.4) Neutrophils (%) (Auto) 58.4 % Lymphocytes (%) (Auto) 27.8 % Monocytes (%) (Auto) 10.0 % Eosinophils (%) (Auto) 3.6 % Basophils (%) (Auto) 0.1 % Neutrophils # (Auto) 4.36 K/uL (1.4-6.5) Lymphocytes # (Auto) 2.08 K/uL (1.2-3.4) Monocytes # (Auto) 0.75 K/uL (0.11-0.59) Eosinophils # (Auto) 0.27 K/uL (0-0.5) Basophils # (Auto) 0.01 K/uL (0-0.2) Immature Granulocyte # (Auto) 0.01 K/uL (0.00-0.02) Red Blood Cell Morphology Unremarkable Activated Partial Thromboplast Time 52.1 SECONDS (21.0-31.0) Partial Thromboplastin Ratio 2.0 Anion Gap 4.0 mmol/L (3-11) Est Creatinine Clear Calc Drug Dose 49.0 ml/min Estimated GFR () 63.8 Estimated GFR (Non- 55.1 BUN/Creatinine Ratio 17.0 (10-20) Calcium Level 8.8 mg/dl (8.5-10.1) Phosphorus Level 3.4 mg/dl (2.5-4.9) Magnesium Level 1.8 mg/dl (1.8-2.4) Free Thyroxine 2.85 ng/dl (0.80-1.60) Free Triiodothyronine 4.28 pg/ml (2.30-4.20) Test 11/03/17 05:06 11/03/17 08:04 Total Creatine Kinase 42 U/L (26-192) Creatine Kinase MB 2.0 ng/ml (0.5-3.6) Creatine Kinase MB Ratio 4.8 (0-3.0) Troponin I 1.130 ng/ml (0-0.045) Red Blood Count 3.39 M/uL (4.2-5.4) Mean Corpuscular Volume 83.8 fL (80-100) Mean Corpuscular Hemoglobin 27.4 pg (25-34) Mean Corpuscular Hemoglobin Concent 32.7 g/dl (32-36) RDW Standard Deviation 47.0 fL (36.4-46.3) RDW Coefficient of Variation 15.4 % (11.5-14.5) Mean Platelet Volume 8.8 fL (7.4-10.4) Date/Time Source Procedure Growth Status 11/02/17 05:28 Blood Blood Culture Pending Received 11/02/17 07:45 Nasal MRSA DNA Surveillance Screen - Final Specimen Negative for MRSA by DNA Probe Complete Last 24 Hours Test 11/02/17 11:44 11/02/17 14:36 11/02/17 14:45 11/02/17 16:25 Activated Partial Thromboplast Time 34.8 SECONDS Partial Thromboplastin Ratio 1.3 Troponin I 4.670 ng/ml Triglycerides Level 141 mg/dl Cholesterol Level 142 mg/dl HDL Cholesterol 30 mg/dl LDL Cholesterol, Calculated 84 mg/dl VLDL Cholesterol, Calculated 28 mg/dl Cholesterol/HDL Ratio 4.7 Blood Gas Sample Site R Radial Bedside Blood Gas pH (LAB) 7.44 Bedside Blood Gas pCO2 (LAB) 33 mmHg Bedside Blood Gas pO2 (LAB) 112 mmHg Bedside Blood Gas HCO3 (LAB) 22 meq/L Bedside Blood Gas Total CO2 23 mEq/l Bedside Blood Gas Base Excess (LAB) -2.0 meq/L Bedside Blood Gas O2 Saturation 99.0 % Greg Test Pass Oxygen Delivery Device BIPAP Bedside Oxygen Rate (breaths/min) 12 Bedside FiO2 35 % Blood Gas IPAP 12 Lactic Acid Level 0.9 mmol/L Total Bilirubin 0.6 mg/dl Direct Bilirubin 0.1 mg/dl Aspartate Amino Transf (AST/SGOT) 26 U/L Alanine Aminotransferase (ALT/SGPT) 16 U/L Alkaline Phosphatase 73 U/L Ammonia 25.6 umol/L Total Protein 5.8 gm/dl Albumin 2.8 gm/dl Bedside Glucose 119 mg/dl Test 11/02/17 20:35 11/02/17 20:36 11/02/17 23:54 11/03/17 03:45 Bedside Glucose 128 mg/dl 117 mg/dl Activated Partial Thromboplast Time 75.1 SECONDS 52.1 SECONDS Partial Thromboplastin Ratio 2.9 2.0 White Blood Count 7.48 K/uL Red Blood Count 3.27 M/uL Hemoglobin 8.8 g/dL Hematocrit 27.4 % Mean Corpuscular Volume 83.8 fL Mean Corpuscular Hemoglobin 26.9 pg Mean Corpuscular Hemoglobin Concent 32.1 g/dl Platelet Count 244 K/uL Mean Platelet Volume 9.0 fL Neutrophils (%) (Auto) 58.4 % Lymphocytes (%) (Auto) 27.8 % Monocytes (%) (Auto) 10.0 % Eosinophils (%) (Auto) 3.6 % Basophils (%) (Auto) 0.1 % Neutrophils # (Auto) 4.36 K/uL Lymphocytes # (Auto) 2.08 K/uL Monocytes # (Auto) 0.75 K/uL Eosinophils # (Auto) 0.27 K/uL Basophils # (Auto) 0.01 K/uL RDW Standard Deviation 47.3 fL RDW Coefficient of Variation 15.5 % Immature Granulocyte % (Auto) 0.1 % Immature Granulocyte # (Auto) 0.01 K/uL Red Blood Cell Morphology Unremarkable Sodium Level 138 mmol/L Potassium Level 3.3 mmol/L Chloride Level 107 mmol/L Carbon Dioxide Level 27 mmol/L Anion Gap 4.0 mmol/L Blood Urea Nitrogen 17 mg/dl Creatinine 1.00 mg/dl Est Creatinine Clear Calc Drug Dose 49.0 ml/min Estimated GFR () 63.8 Estimated GFR (Non- 55.1 BUN/Creatinine Ratio 17.0 Random Glucose 96 mg/dl Calcium Level 8.8 mg/dl Phosphorus Level 3.4 mg/dl Magnesium Level 1.8 mg/dl Free Thyroxine 2.85 ng/dl Free Triiodothyronine 4.28 pg/ml Test 11/03/17 05:06 11/03/17 08:04 Total Creatine Kinase 42 U/L Creatine Kinase MB 2.0 ng/ml Creatine Kinase MB Ratio 4.8 Troponin I 1.130 ng/ml White Blood Count 7.76 K/uL Red Blood Count 3.39 M/uL Hemoglobin 9.3 g/dL Hematocrit 28.4 % Mean Corpuscular Volume 83.8 fL Mean Corpuscular Hemoglobin 27.4 pg Mean Corpuscular Hemoglobin Concent 32.7 g/dl RDW Standard Deviation 47.0 fL RDW Coefficient of Variation 15.4 % Platelet Count 245 K/uL Mean Platelet Volume 8.8 fL Assessment & Plan 77 yo F who recently picked up smoking presents with acute respiratory failure 2 /2 pulmonary edema. She was placed on BIPAP and admitted to the ICU overnight with improvement. She was intolerant of NC and was required to go back on the BIPAP but was subsequently weaned to nasal canula. She is confused and disoriented and ROS/history cannot be obtained from her at this time. She has diuresed >1L with 3 doses furosemide since admission; CXR this morning is much improved compared to yesterday. A CT a/p was performed yesterday to rule out bleeding and was negative. She remains on the heparin drip. She is able to swallow and is tolerating PO per nursing staff. The patient reports to me that her neck is sore. 1. Acute respiratory failure 2/2 acute diastolic heart failure with asymmetric pulmonary edema-pulmonary edema has almost resolved on the R lung, much improved compared to yesterday. she is oxygenating well on nasal canula at this time. She continues on Lasix 40 BID and nitro paste. LV function is normal. Cont supportive care as needed. 2. New onset atrial fibrillation-she spontaneously converted to sinus rhythm yesterday and remains on Toprol and heparin drip for now. Pt's confusion precludes any kind of conversations regarding blood thinners moving forward and Cardiology is considering cardiac catheterization once consent could be obtained , so will consider transition to NOAC but discuss with Cardiology first. 3. NSTEMI-uncertain if infarction vs demand ischemia from rapid afib. Treating medically with heparin at this time. She is confused for me but reported no chest pain to other providers this morning. Cont Toprol and nitro paste. EKG reviewed this morning. Defer to Cardiology for further workup. 4. Metabolic encephalopathy 2/2 above. Cont supportive care. Pt also with some neck pain which may be contributing to confusion. Scheduled APAP to help with this. If she becomes fatigued, will back down on dosage. 5. HTN-controlled, cont Losartan 50mg qHS 6. Smoker-encouraged to quit. Will reinforce the importance of this when she is more alert and oriented. 7. Hyperthyroidism-2/2 exogenous Synthroid overdosing. Need to reduce the dose of Synthroid replacement and recheck in 6 weeks as outpatient. May be a trigger for the atrial fib. Held by ICU team. 8. Anemia-likely related to dilutional effect from IVF vs phlebotomy. No indication for transfusion at this time. 9. Hypokalemia-likely 2/2 diuretic use-replacement ordered. Repeat PRP in am. DVT prophy-heparin Full Code [facility]po[facility] Consultants: ICU-Joshua Kang Current Inpatient Medications: Current Inpatient Medications Medications (Trade) Dose Ordered Sig/[place] Route Start Time Stop Time Status Last Admin Dose Admin Heparin Sodium/ Dextrose 500 ml @ 27 mls/hr [id number] IV 11/02/17 05:30 11/09/17 05:29 11/02/17 22:01 27 MLS/HR Ipratropium [place] (Atrovent 0.02% 0.5MG/2.5ML Neb) 0.5 mg Q4H PRN INH 11/02/17 05:30 12/02/17 05:29 Levalbuterol (Xopenex 1.25MG/ 0.5ML Neb) 1.25 mg Q4H PRN INH 11/02/17 05:30 12/02/17 05:29 Nitroglycerin (Nitrostat Tab) 0.4 mg UD PRN SL 11/02/17 06:30 12/02/17 06:29 Tramadol HCl (Ultram Tab) 25 mg Q6H PRN PO 11/02/17 06:30 12/02/17 06:29 Prochlorperazine Edisylate 5 mg/ Syringe 5 ml @ 5 mls/min Q6H PRN IV 11/02/17 06:30 12/02/17 06:29 Morphine Sulfate (MoRPHine SULFATE INJ) 4 mg Q4H PRN IV 11/02/17 06:30 11/16/17 06:29 Clonazepam (Klonopin Tab) 0.5 mg TID PRN PO 11/02/17 06:30 12/02/17 06:29 11/02/17 16:34 0.5 MG Docusate Sodium (coLACE CAP) 100 mg BID PO 11/02/17 09:00 12/02/17 08:59 11/03/17 08:42 100 MG Paroxetine HCl (pAXil TAB) 40 mg DAILY PO 11/02/17 09:00 12/02/17 08:59 11/03/17 08:43 40 MG Ropinirole HCl (Requip Tab) 0.5 mg TID PRN PO 11/02/17 06:30 12/02/17 06:29 11/02/17 20:47 0.5 MG Tolterodine Tartrate (Detrol Tab) 2 mg BID PO 11/02/17 09:00 12/02/17 08:59 11/03/17 08:42 2 MG Ferrous Sulfate (Feosol Tab) 325 mg DAILY PO 11/02/17 09:00 12/02/17 08:59 11/03/17 08:42 325 MG Furosemide 40 mg/ Syringe 4 ml @ 4 mls/min BID17 IV 11/02/17 17:00 12/02/17 16:59 Future Hold 11/03/17 08:43 4 MLS/MIN Acetaminophen (Tylenol Tab) 650 mg Q4H PRN PO 11/02/17 06:30 12/02/17 06:29 Nitroglycerin (Nitroglycerin 2% Oint) 1 inch Q6H EXT 11/02/17 08:00 12/02/17 07:59 11/03/17 08:51 1 INCH Miscellaneous Information (Icu Protocol For Hyperglycemia) 1 ea PRN PRN N/A 11/02/17 06:30 11/04/17 06:29 Aspirin (Ecotrin Tab) 81 mg DAILY PO 11/03/17 09:00 12/03/17 08:59 11/03/17 08:41 81 MG Pantoprazole Sodium (Protonix Tab) 40 mg QAM PO 11/02/17 09:00 12/02/17 08:59 11/03/17 08:42 40 MG Losartan Potassium (coZAAR TAB) 25 mg QAM PO 11/03/17 09:00 12/03/17 08:59 11/03/17 08:43 25 MG Metoprolol Succinate (Toprol Xl Tab) 75 mg QAM PO 11/04/17 09:00 12/03/17 08:59 Potassium Chloride (Klor-Con M10) 40 meq ONE ONCE PO 11/03/17 12:00 11/03/17 12:01
[2017-11-03] MEDS: HEPARIN 25,000 UNIT/500ML D5W 500 ML IV SCH (14:48)
[2017-11-03] MEDS: ROPINIROLE HCL 1 MG TAB PO PRN (17:38)
--- NOTE | 2017-11-03 18:20 | DIAGNOSTIC IMAGING REPORT ---
VENOUS DOPPLER LWR EXT BILA CLINICAL HISTORY: 77 years-old Female presenting with chronic leg pain on admission. TECHNIQUE: Real-time grayscale and color and spectral Doppler ultrasound imaging of the veins of the bilateral lower extremities was performed. Compression and augmentation were also utilized. COMPARISON: 09/30/2013. FINDINGS: Right: Common femoral vein: Patent. Greater saphenous vein: Patent. Deep femoral vein: Patent. Femoral vein: Patent. Popliteal vein: Patent. Calf veins: Patent. Left: Common femoral vein: Patent. Greater saphenous vein: Patent. Deep femoral vein: Patent. Femoral vein: Patent. Popliteal vein: Patent. Calf veins: Patent. Other: None. IMPRESSION: No evidence of deep venous thrombosis. Electronically signed by: Ralph Saldivar M.D. 11/03/2017 6:19 PM Dictated Date/Time: 11/03/2017 6:18 PM
[2017-11-04] VITALS (16 sets, daily range): BP systolic 117–162; BP diastolic 61–84; PULSE 69–89; TEMP 36.7–37.2; O2SAT 87–100
[2017-11-04] MEDS: CLONAZEPAM 0.5 MG TAB PO PRN ×2 (00:59→22:01)
[2017-11-04] MEDS: TRAMADOL HCL 50 MG TAB PO PRN ×2 (01:01→22:02)
[2017-11-04] MEDS: NITROGLYCERIN 2% OINTMENT 30GM TUBE EXT SCH ×4 (02:09→20:24)
[2017-11-04] MEDS: ACETAMINOPHEN 500 MG TAB PO SCH ×3 (05:03→20:25)
[2017-11-04 05:45] LABS: HEMATOCRIT 29.1 % (37-47); HEMOGLOBIN 9.3 g/dL (12.0-16.0); MEAN CELL VOLUME 83.6 fL (80-100); MEAN CORPUSCULAR HEMOGLOBIN 26.7 pg (25-34); PLATELET COUNT 242 K/uL (130-400); RED CELL DISTRIBUTION WIDTH CV 15.1 % (11.5-14.5); RED CELL DISTRIBUTION WIDTH SD 46.1 fL (36.4-46.3); WHITE BLOOD COUNT 7.01 K/uL (4.8-10.8)
[2017-11-04 06:15] LABS: PTT PATIENT 46.5 SECONDS (21.0-31.0)
[2017-11-04 06:25] LABS: CALCIUM 9.2 mg/dl (8.5-10.1); CREATININE 0.79 mg/dl (0.60-1.20); POTASSIUM 3.9 mmol/L (3.5-5.1)
[2017-11-04] MEDS ORDERED: HEPARIN IV BOLUS 3,000 UNIT in SYRINGE 0 ML IV ONE (06:45)
[2017-11-04] MEDS: HEPARIN 25,000 UNIT/500ML D5W 500 ML IV SCH ×2 (07:39→12:04)
[2017-11-04] MEDS: ROPINIROLE HCL 1 MG TAB PO PRN (07:43)
[2017-11-04] MEDS: ASPIRIN 81 MG ECTAB PO SCH (07:44)
[2017-11-04] MEDS: LOSARTAN POTASSIUM 25 MG TAB PO SCH (07:44)
[2017-11-04] MEDS: METOPROLOL SUCC 25MG EXT REL TAB PO SCH (07:44)
[2017-11-04] MEDS: DOCUSATE SODIUM 100 MG CAP PO SCH ×2 (07:45→20:25)
[2017-11-04] MEDS: PAROXETINE 20 MG TAB PO SCH (07:45)
[2017-11-04] MEDS: FERROUS SULFATE 325 MG TAB PO SCH (08:48)
[2017-11-04] MEDS: PANTOprazole SOD 40 MG TAB PO SCH (08:48)
[2017-11-04] MEDS: TOLTERODINE TARTRATE 2 MG TAB PO SCH ×2 (08:48→20:25)
[2017-11-04] MEDS ORDERED: MIDAZOLAM HCL 1 MG/ML 2ML VIAL ONE (12:51)
[2017-11-04] MEDS ORDERED: NiCARDipine HCL INJ 2.5 MG/ML 10 ML AMP ONE (12:52)
[2017-11-04] MEDS ORDERED: HEPARIN SOD (PORCINE) 1000 UNIT/ML 10 ML VIAL ONE (12:52)
[2017-11-04] MEDS ORDERED: FENTANYL CITRATE INJ 50 MCG/1 ML 2 ML VIAL ONE (12:52)
[2017-11-04] MEDS ORDERED: NITROGLYCERIN/D5W 100MCG/ML 20ML SYR ONE (12:53)
--- NOTE | 2017-11-04 14:07 | Pre Sedation Assessment ---
Pre Sedation Assessment General Date of Sedation: November 04, 2017. Vital Signs Past 12 Hours Date Time Temp Pulse Resp B/P (MAP) Pulse Ox O2 Delivery O2 Flow Rate FiO2 11/04/17 12:00 Nasal Cannula 2.0 11/04/17 11:46 36.9 69 19 133/76 (95) 92 Nasal Cannula 1.0 11/04/17 08:06 36.8 75 19 140/61 (87) 95 Nasal Cannula 2.0 11/04/17 08:00 Nasal Cannula 2.0 11/04/17 04:13 36.7 75 18 117/75 (89) 95 Nasal Cannula 2.0 11/04/17 04:00 Nasal Cannula 2.0 Review Cardiovascular: regular rate, rhythm Lungs: chest non-tender Pre-Sedation Airway Assessment Smoking Status: Current Every Day Smoker Oral Cavity: Dentures Mallampati Classification: Class II ASA Classification: Class III Procedure Planning Contraindications for Sedation: None Current Medications Reviewed: Yes Notes The planned sedation has been discussed with the patient. Informed Consent was obtained. I have identified the patient, determined the appropriateness of sedation and have assessed the patient immediately prior to the procedure. All medicine(s) and interventions are by my order.
--- NOTE | 2017-11-04 14:18 | [facility] Post Operative Brief Note ---
Preliminary Procedure Note Procedure Date November 04, 2017. Pre-Procedure Diagnosis Non STEMI AUC Score 9 Post-Procedure Diagnosis Moderate CAD Procedure(s) Performed Coronary Angiography Market Editor Dr. Tristin Moya [employer] Di[employer](s) Suhas Farmer Estimated Blood Loss <15cc Medication(s) Fentanyl (12.5 mcg IV 3), Nicardipine (250 mcg intra-arterial after sheath insertion), Nitroglycerin (200 mcg intra-arterial after right coronary injection ), Lidocaine 1% (Local infiltration) Preliminary Findings Marked tortuosity of the right subclavian, aorta iliacs. Right dominant coronary anatomy Moderate diffuse coronary atherosclerosis Left main long and very modest caliber with 30-40% ostial taper Left anterior descending type III in distribution, with 2 small diagonals a large septal branch and large third diagonal. Left anterior descending has a 50% discrete mid vessel stenosis at S1, and 30% narrowing at its origin Left circumflex large in caliber but nondominant with large bifurcating obtuse marginal and large posterior lateral branch along the AV groove. There is moderate narrowings of 30% multiple areas no greater Right coronary is dominant in distribution moderate in caliber with 2 right ventricular branches in its midportion small posterior descending artery and 2 posterior ventricular branches. Within the right coronary artery there is serial 50 and 60% stenoses in its midportion and a 40% narrowing at its ostium. Mild coronary spasm in the right coronary was induced with catheter engagement and resolved with nitroglycerin Recommendations Medical therapy and/or Counseling Specimens None Fluids (cc crystalloids) 118 cc Anesthesia Start procedure 1305, End procedure 1400 Disposition PCU
--- NOTE | 2017-11-04 15:15 | PROGRESS NOTE ---
DATE: 11/04/2017 The patient is seen and examined. Chart, medications, telemetry reviewed. SUBJECTIVE: The patient had a good night. No chest pains or shortness of breath. Remained in sinus rhythm. Was oriented this morning. Discussed patient's presentation with non-ST elevation myocardial infarctions and new wall motion abnormality, anterior apex. Given anticipated long-term anticoagulation and improvement in mental status, discussed cardiac catheterization which the patient agreed. Also discussed with patient's daughter who agreed with proceeding today. OBJECTIVE: VITAL SIGNS: Heart rate is 69, blood pressure is 132/76. HEENT: Normocephalic and atraumatic. NECK: Thin. There is no jugular venous distention. RESPIRATORY: Lungs are clear. CARDIOVASCULAR: Regular. There is no S3 or gallop. GASTROINTESTINAL: Abdomen is soft and nontender. EXTREMITIES: Without cyanosis or clubbing. There is no peripheral edema. There are intact distal pulses. LABORATORY DATA: Today, sodium is 134, potassium is 3.9, chloride 100, bicarbonate 29, BUN 40, creatinine 0.79. Hemoglobin is 9.3. Cardiac catheterization performed. On preliminary review, study is notable for tortuous aorta iliacs and right subclavian. Coronary angiography was performed, however, after initial approach through a right radial and conversion to right femoral artery approach. Study demonstrated moderate diffuse coronary atherosclerosis. The left main was long and narrow in caliber but nonobstructive with 30% ostial taper. Left anterior descending had diffuse irregularities with 50% narrowing in the mid vessel, 30% ostial. Left circumflex had moderate irregularities, right coronary had serial 50% and 60% stenosis mid vessel, ostial narrowing of 30%-40% with spasm. The patient despite back discomfort tolerated the procedure well though did have mild agitation to completion of the study. IMPRESSION: A 77-year-old female with issues as follows: 1. Acute pulmonary edema in association with atrial fibrillation with rapid ventricular response. Plan is continue the increased dose of metoprolol succinate 75 mg per day. 2. Non-ST segment elevation myocardial infarction secondary to demand based ischemia, with no high-grade obstructive coronary disease, with diffuse coronary atherosclerosis. 3. Acute in-hospital delirium. 4. Hyperthyroidism, iatrogenic. RECOMMENDATIONS: Will continue medical therapies. Holding heparin tonight given mild agitation and past difficulties. Losartan will be continued at 50 mg per day and oral nitrates continued after switch from topical nitrates. Will follow patient in the hospital. Losartan will be continued at 25 mg per day, and topical nitrates switched to oral.
[2017-11-04 15:50] LABS: MICROSOMAL AB 8 IU/ML (<9)
[2017-11-04] MEDS ORDERED: SODIUM CHLORIDE 0.9% 1000ML 250 ML IV PRN (17:17)
[2017-11-04] MEDS ORDERED: ATROPINE SULFATE 0.1 MG/ML 5ML SYR IV PRN (17:30)
[2017-11-04] MEDS ORDERED: ACETAMINOPHEN 325 MG TAB PO PRN (17:30)
[2017-11-04] MEDS ORDERED: SODIUM CHLORIDE 0.9% 1000ML 1,000 ML IV SCH (17:45)
--- NOTE | 2017-11-04 21:01 | Progress Note ---
Post ICU Progress Note Date & Time November 04, 2017 at 20:37 Vital Signs Vital Signs Past 12 Hours Date Time Temp Pulse Resp B/P (MAP) Pulse Ox O2 Delivery O2 Flow Rate FiO2 11/04/17 19:04 37.2 85 18 147/76 (99) 98 Nasal Cannula 2.0 11/04/17 18:00 87 19 142/76 (98) 100 Nasal Cannula 2.0 11/04/17 17:26 89 18 160/84 (109) 95 Nasal Cannula 2.0 11/04/17 16:45 81 19 144/79 (100) 89 Room Air 11/04/17 16:30 77 19 138/66 (90) 89 Room Air 11/04/17 16:15 88 18 160/75 (103) 89 Room Air 11/04/17 16:00 81 16 153/75 (101) 88 Room Air 11/04/17 16:00 Room Air 11/04/17 15:45 79 19 162/78 (106) 89 Room Air 11/04/17 15:30 79 18 144/73 (96) 87 Room Air 11/04/17 15:15 84 20 127/63 (84) 92 Nasal Cannula 2.0 11/04/17 15:00 84 16 148/78 (101) 96 Nasal Cannula 2.0 11/04/17 14:45 83 19 137/76 (96) 87 Room Air 11/04/17 14:00 81 16 171/83 (112) 96 Nasal Cannula 11/04/17 12:00 Nasal Cannula 2.0 11/04/17 11:46 36.9 69 19 133/76 (95) 92 Nasal Cannula 1.0 Notes Mental Status: alert / awake Nausea / Vomiting: adequately controlled Pain: adequately controlled Airway Patency, RR, SpO2: stable & adequate BP & HR: stable & adequate Patient is a 77-year-old female initially admitted to the ICU with acute respiratory distress and hypoxemic respiratory failure secondary to volume overload from rapid A. fib. Patient was placed on BiPAP and received IV Lasix and topical nitroglycerin. She showed continued progression and good diuresis throughout her stay. She was subsequently downgraded from the ICU. Secondary to her elevated troponin, the patient had been initially placed on a heparin gtt. eventually, she did undergo catheterization which demonstrated diffuse atherosclerotic disease without focal lesion. She was maximized medically per cardiology note. On evaluation today, the patient is resting comfortably. She claims to remember me from initial visit, however she does fluctuate from a mental standpoint and continues to be a one-to-one. She offers no complaints otherwise at this point. Consider outpatient follow up in 1 to 2 weeks with: Cardiology, PCP Repeat imaging needed: Per admitting team. Follow up cultures: None at this time. Reviewed progress notes, labs, and inpatient medication list Continue current management Additional recommendations: None. Thank you for allowing us to participate in the care of this patient. At this time, critical are services will sign off on this case. Please feel free to reconsult as needed. Consults & Procedures Consultants: Cardiology
[2017-11-05] VITALS (9 sets, daily range): BP systolic 108–159; BP diastolic 59–83; PULSE 73–83; TEMP 36.1–37; O2SAT 93–99
[2017-11-05] MEDS ORDERED: SODIUM CHLORIDE 0.9% 1000ML 1,000 ML IV SCH
--- NOTE | 2017-11-05 00:45 | CARDIAC CATH REPORT ---
INDICATIONS: Non-ST segment elevation myocardial infarction, new wall motion abnormality on echocardiogram. PROCEDURE: Coronary angiography. BRIEF HISTORY: Patient is a 77-year-old female who presented on 11/02/2017 with acute pulmonary edema, chest pain, atrial fibrillation with optimal response and subsequently developed a significant troponin elevation, peaking at 4.6 with echocardiography demonstrated new wall motion abnormality septum and apex. The patient was hemodynamically stabilized, rhythm controlled into sinus rhythm and patient referred for coronary angiography. Pulmonary edema resolved. ACCESS: Right radial artery was accessed with 6-[place] long glide sheath. Catheters were able to be advanced, but due to tortuosity in the right subclavian unable to be advanced into the ascending aortic, procedure was then switched to right femoral access and right femoral artery access with tortuosity noted in the aorta iliacs though negotiated with a long 5-[place] sheath and all exchanges over wire. CATHETERS: A 6-[place] glide sheath right radial artery, 5-[place] JL 3.5 right femoral artery, 5-[place] long sheath, 5-[place] JL4, 5-[place] 3DRC, 5-[place] straight pigtail. CONTRAST: Nonionic 36 mL. IV FLUIDS: 118 mL normal saline. RADIATION EXPOSURE: 16.2 minutes fluoroscopy, 548 milligrays, DAP score 4699. Start time 1305. End time 1400. MEDICATIONS: The patient received fentanyl 12.5 mg IV x3 for sedation and pain control. After right radial sheath was inserted, patient received 250 mcg intra-arterial. Local infiltration of all access site was performed using 1% lidocaine. After right coronary artery injection, 200 mcg intra-arterial was injected prior to reimaging. COMPLICATIONS: No procedural complications though patient did develop post-procedure agitation, as per earlier in same admission. RESULTS: CORONARY ANGIOGRAPHY: Right coronary dominance is noted. There is moderate diffuse coronary atherosclerosis all vasculature. As described in the procedure, there was marked tortuosity right subclavian and aorta iliacs. LEFT MAIN: Left main is long and very modest in caliber with a 30% narrowing at the origin. LEFT ANTERIOR DESCENDING: Left anterior descending is type 3 in distribution, gives rise to 2 small diagonal branches and a large septal branch at the end of its proximal third, a third large diagonal branches arising in the left anterior descending in its mid portion. Left anterior descending has moderate disease throughout it of 20-30% in multiple areas. There is a discrete 50% narrowing at the mid portion at the origin of the large septal branch. The ostium of left main is narrowed by 30%. LEFT CIRCUMFLEX: Left circumflex is large, but nondominant and consists of a large bifurcating obtuse marginal and a large posterolateral branch. There are moderate irregularities throughout its vasculature and a 30% narrowing at its origin. RIGHT CORONARY ARTERY: The right coronary artery is modest in caliber, but dominant in distribution. This rise to a large sinoatrial branch at its origin, 2 right ventricular branches in its mid portion at the AV groove along posterior descending artery and along the AV groove 3 small posterior ventricular branches. Within the right coronary artery, there is serial 50 and 60% narrowings in its mid portion. The ostium is narrowed by 30-40%. Catheter-induced spasm was induced, which resolved after intra-arterial nitroglycerin. LEFT VENTRICULAR ANGIOGRAPHY: Not performed. Aortic valve not crossed. HEMODYNAMICS: Initial aortic root pressure is 140/47, the mean of 78. Aortic root closure pressure is 140/67 with a mean of 99. FINAL IMPRESSIONS: 1. Right dominant coronary anatomy. 2. Moderate diffuse coronary atherosclerosis, but no lesion greater than 50% with no significant narrowing mid vessel left anterior descending and ostium right coronary artery. RECOMMENDATIONS: Continue medical therapies, management of arrhythmias and hypertension.
[2017-11-05] MEDS: NITROGLYCERIN 2% OINTMENT 30GM TUBE EXT SCH ×2 (01:51→08:55)
[2017-11-05] MEDS: ROPINIROLE HCL 1 MG TAB PO PRN (02:21)
--- NOTE | 2017-11-05 02:53 | Progress Note ---
Medicine Progress Note Date & Time of Visit: November 04, 2017 at 0900. Subjective 77 yo F who recently picked up smoking presents with acute respiratory failure 2 /2 pulmonary edema. She was placed on BIPAP and admitted to the ICU overnight with improvement. She is still demonstrating infusion although now is oriented to place. Per daughter she has had this level of baseline confusion for a couple of months. The patient likely has dementia. She still reports some neck soreness but cannot tell me if it is better. Again review of systems cannot reliably be obtained. Objective Last 8 Hrs Date Time Temp Pulse Resp B/P (MAP) Pulse Ox O2 Delivery O2 Flow Rate FiO2 11/04/17 18:00 87 19 142/76 (98) 100 Nasal Cannula 2.0 11/04/17 17:26 89 18 160/84 (109) 95 Nasal Cannula 2.0 11/04/17 16:45 81 19 144/79 (100) 89 Room Air 11/04/17 16:30 77 19 138/66 (90) 89 Room Air 11/04/17 16:15 88 18 160/75 (103) 89 Room Air 11/04/17 16:00 81 16 153/75 (101) 88 Room Air 11/04/17 16:00 Room Air 11/04/17 15:45 79 19 162/78 (106) 89 Room Air 11/04/17 15:30 79 18 144/73 (96) 87 Room Air 11/04/17 15:15 84 20 127/63 (84) 92 Nasal Cannula 2.0 11/04/17 15:00 84 16 148/78 (101) 96 Nasal Cannula 2.0 11/04/17 14:45 83 19 137/76 (96) 87 Room Air 11/04/17 14:00 81 16 171/83 (112) 96 Nasal Cannula 11/04/17 12:00 Nasal Cannula 2.0 11/04/17 11:46 36.9 69 19 133/76 (95) 92 Nasal Cannula 1.0 Physical Exam: GEN: obese, in no acute distress, alert and oriented to place and self. Able to follow instructions, no delirium. HEENT: NC/AT, normal sclerae CARDIO: reg rate, S1/2 heard without m/g/r LUNGS: CTA bilaterally, no crackles, rales or wheezes, good diaphragmatic excursion ABD: soft, non-tender, non-distended, no rebound or guarding EXTREMITY: RP and DP palpable 2+ bilat, no LE swelling or edema, extremities are warm and well-perfused NEURO: CN 2-12 grossly intact, exam limited as patient confused. MUSC: generalized weakness, exam is limited as patient is confused. SKIN: warm and dry Laboratory Results: 11/04/17 05:20 11/04/17 05:20 Test 11/02/17 03:47 11/02/17 03:48 11/02/17 05:28 11/02/17 11:44 Prothrombin Time 11.7 SECONDS (9.0-12.0) Prothromb Time International Ratio 1.1 (0.9-1.1) Procalcitonin < 0.05 ng/ml (0-0.5) Pro-B-Type Natriuretic Peptide 6948 pg/ml (0-900) Arterial Blood pH 7.36 (7.35-7.45) Arterial Blood Partial Pressure CO2 41 mmHg (35-46) Arterial Blood Partial Pressure O2 179 mm/Hg (80-95) Arterial Blood HCO3 23 mmol/L (19-24) Arterial Blood Oxygen Saturation 99.3 % (90-95) Arterial Blood Base Excess -2.6 mEq/L (-9-1.8) Arterial Blood Gas Delivery 100% Greg Test POS (POS) Thyroid Stimulating Hormone (TSH) < 0.005 uIu/ml (0.300-4.500) Total Triiodothyronine 1.39 ng/ml (0.60-1.81) Triglycerides Level 141 mg/dl (0-150) Cholesterol Level 142 mg/dl (0-200) HDL Cholesterol 30 mg/dl LDL Cholesterol, Calculated 84 mg/dl VLDL Cholesterol, Calculated 28 mg/dl Cholesterol/HDL Ratio 4.7 Test 11/02/17 14:36 11/02/17 14:45 11/02/17 23:54 11/03/17 03:45 Blood Gas Sample Site R Radial Bedside Blood Gas pH (LAB) 7.44 (7.35-7.45) Bedside Blood Gas pCO2 (LAB) 33 mmHg (35-46) Bedside Blood Gas pO2 (LAB) 112 mmHg (80-95) Bedside Blood Gas HCO3 (LAB) 22 meq/L (19-24) Bedside Blood Gas Total CO2 23 mEq/l (24-31) Bedside Blood Gas Base Excess (LAB) -2.0 meq/L (-9-1.8) Bedside Blood Gas O2 Saturation 99.0 % (90-95) Greg Test Pass Oxygen Delivery Device BIPAP Bedside Oxygen Rate (breaths/min) 12 Bedside FiO2 35 % Blood Gas IPAP 12 Lactic Acid Level 0.9 mmol/L (0.4-2.0) Total Bilirubin 0.6 mg/dl (0.2-1) Direct Bilirubin 0.1 mg/dl (0-0.2) Aspartate Amino Transf (AST/SGOT) 26 U/L (15-37) Alanine Aminotransferase (ALT/SGPT) 16 U/L (12-78) Alkaline Phosphatase 73 U/L (45-117) Ammonia 25.6 umol/L (11-32) Total Protein 5.8 gm/dl (6.4-8.2) Albumin 2.8 gm/dl (3.4-5.0) Bedside Glucose 117 mg/dl (70-90) Immature Granulocyte % (Auto) 0.1 % White Blood Count 7.48 K/uL (4.8-10.8) Red Blood Count 3.27 M/uL (4.2-5.4) Hemoglobin 8.8 g/dL (12.0-16.0) Hematocrit 27.4 % (37-47) Mean Corpuscular Volume 83.8 fL (80-100) Mean Corpuscular Hemoglobin 26.9 pg (25-34) Mean Corpuscular Hemoglobin Concent 32.1 g/dl (32-36) Platelet Count 244 K/uL (130-400) Mean Platelet Volume 9.0 fL (7.4-10.4) Neutrophils (%) (Auto) 58.4 % Lymphocytes (%) (Auto) 27.8 % Monocytes (%) (Auto) 10.0 % Eosinophils (%) (Auto) 3.6 % Basophils (%) (Auto) 0.1 % Neutrophils # (Auto) 4.36 K/uL (1.4-6.5) Lymphocytes # (Auto) 2.08 K/uL (1.2-3.4) Monocytes # (Auto) 0.75 K/uL (0.11-0.59) Eosinophils # (Auto) 0.27 K/uL (0-0.5) Basophils # (Auto) 0.01 K/uL (0-0.2) Immature Granulocyte # (Auto) 0.01 K/uL (0.00-0.02) Red Blood Cell Morphology Unremarkable Phosphorus Level 3.4 mg/dl (2.5-4.9) Free Thyroxine 2.85 ng/dl (0.80-1.60) Free Triiodothyronine 4.28 pg/ml (2.30-4.20) Thyroid Antimicrosomal Antibody 8 IU/ML (<9) Test 11/03/17 05:06 11/04/17 05:20 Total Creatine Kinase 42 U/L (26-192) Creatine Kinase MB 2.0 ng/ml (0.5-3.6) Creatine Kinase MB Ratio 4.8 (0-3.0) Troponin I 1.130 ng/ml (0-0.045) Red Blood Count 3.48 M/uL (4.2-5.4) Mean Corpuscular Volume 83.6 fL (80-100) Mean Corpuscular Hemoglobin 26.7 pg (25-34) Mean Corpuscular Hemoglobin Concent 32.0 g/dl (32-36) RDW Standard Deviation 46.1 fL (36.4-46.3) RDW Coefficient of Variation 15.1 % (11.5-14.5) Mean Platelet Volume 9.0 fL (7.4-10.4) Activated Partial Thromboplast Time 46.5 SECONDS (21.0-31.0) Partial Thromboplastin Ratio 1.8 Anion Gap 5.0 mmol/L (3-11) Est Creatinine Clear Calc Drug Dose 61.8 ml/min Estimated GFR () 84.9 Estimated GFR (Non- 73.2 BUN/Creatinine Ratio 17.4 (10-20) Calcium Level 9.2 mg/dl (8.5-10.1) Magnesium Level 1.6 mg/dl (1.8-2.4) Date/Time Source Procedure Growth Status 11/02/17 05:28 Blood Blood Culture - Preliminary NO GROWTH TO DATE. Resulted 11/02/17 07:45 Nasal MRSA DNA Surveillance Screen - Final Specimen Negative for MRSA by DNA Probe Complete Last 24 Hours Test 11/04/17 05:20 White Blood Count 7.01 K/uL Red Blood Count 3.48 M/uL Hemoglobin 9.3 g/dL Hematocrit 29.1 % Mean Corpuscular Volume 83.6 fL Mean Corpuscular Hemoglobin 26.7 pg Mean Corpuscular Hemoglobin Concent 32.0 g/dl RDW Standard Deviation 46.1 fL RDW Coefficient of Variation 15.1 % Platelet Count 242 K/uL Mean Platelet Volume 9.0 fL Activated Partial Thromboplast Time 46.5 SECONDS Partial Thromboplastin Ratio 1.8 Sodium Level 134 mmol/L Potassium Level 3.9 mmol/L Chloride Level 100 mmol/L Carbon Dioxide Level 29 mmol/L Anion Gap 5.0 mmol/L Blood Urea Nitrogen 14 mg/dl Creatinine 0.79 mg/dl Est Creatinine Clear Calc Drug Dose 61.8 ml/min Estimated GFR () 84.9 Estimated GFR (Non- 73.2 BUN/Creatinine Ratio 17.4 Random Glucose 82 mg/dl Calcium Level 9.2 mg/dl Magnesium Level 1.6 mg/dl Assessment & Plan 77 yo F who recently picked up smoking presents with acute respiratory failure 2 /2 pulmonary edema. She was placed on BIPAP and admitted to the ICU overnight with improvement. She is still demonstrating infusion although now is oriented to place. Per daughter she has had this level of baseline confusion for a couple of months. The patient likely has dementia. She still reports some neck soreness but cannot tell me if it is better. Again review of systems cannot reliably be obtained. Addendum: Later in the day patient underwent cardiac catheterization. She became acutely delirious after administration of anesthesia heparin was stopped as patient was in sinus rhythm and potentially likely to rip out catheters or IVs, and patient had just recently had arterial sticks. Will continue to hold heparin as a result and plan to start Coumadin in a.m. This plan was discussed with cardiology. 1. Acute pulmonary edema 2/2 atrial fibrillation with RVR-mild hypoxia still exists. Wean oxygen as tolerated. Continue Lasix and nitro 2. New onset atrial fibrillation-she spontaneously converted to sinus rhythm on HD2 and remains on Toprol and heparin drip for now. She underwent cath and developed delirium secondary to the anesthesia, heparin drip was stopped out of concern for bleeding as patient has a history of working out her catheter and IVs this admission. If she returns to atrial fibrillation will restart heparin drip. After today we will plan to start Coumadin in 24 hours ; hold off on today with recent arterial stick and delirium. She will remain on Coumadin with transition to SNF as outpatient 3. NSTEMI 2/2 demand ischemia-per catheterization nonobstructive CAD was noted. Continue medical management per cardiology. 4. Metabolic encephalopathy 2/2 above-intermittent in setting of dementia. 5. Neck soreness-likely musculoskeletal continue scheduled Tylenol. Patient is unable to tell me if this is helping much but appears to be tolerating it well. 6. HTN-controlled, cont Losartan 7. Smoker-encouraged to quit. Will reinforce the importance of this when she is more alert and oriented. 8. Hyperthyroidism-2/2 exogenous Synthroid overdosing. Holding Synthroid replacement with recheck in 6 weeks. 9. Anemia-stable, likely related to dilutional effect from IVF vs phlebotomy. No indication for transfusion at this time. DVT prophy-Lovenox/Coumadin Full Code Dispo[facility]to [facility]: [facility] Current Inpatient Medications: Current Inpatient Medications Medications (Trade) Dose Ordered Sig/[place] Route Start Time Stop Time Status Last Admin Dose Admin Heparin Sodium/ Dextrose 500 ml @ 30 mls/hr [id number] IV 11/02/17 05:30 11/09/17 05:29 11/04/17 12:04 30 MLS/HR Ipratropium [place] (Atrovent 0.02% 0.5MG/2.5ML Neb) 0.5 mg Q4H PRN INH 11/02/17 05:30 12/02/17 05:29 Levalbuterol (Xopenex 1.25MG/ 0.5ML Neb) 1.25 mg Q4H PRN INH 11/02/17 05:30 12/02/17 05:29 Nitroglycerin (Nitrostat Tab) 0.4 mg UD PRN SL 11/02/17 06:30 12/02/17 06:29 Tramadol HCl (Ultram Tab) 25 mg Q6H PRN PO 11/02/17 06:30 12/02/17 06:29 11/04/17 01:01 25 MG Prochlorperazine Edisylate 5 mg/ Syringe 5 ml @ 5 mls/min Q6H PRN IV 11/02/17 06:30 12/02/17 06:29 Morphine Sulfate (MoRPHine SULFATE INJ) 4 mg Q4H PRN IV 11/02/17 06:30 11/16/17 06:29 Clonazepam (Klonopin Tab) 0.5 mg TID PRN PO 11/02/17 06:30 12/02/17 06:29 11/04/17 00:59 0.5 MG Docusate Sodium (coLACE CAP) 100 mg BID PO 11/02/17 09:00 12/02/17 08:59 11/03/17 08:42 100 MG Paroxetine HCl (pAXil TAB) 40 mg DAILY PO 11/02/17 09:00 12/02/17 08:59 11/04/17 07:45 40 MG Ropinirole HCl (Requip Tab) 0.5 mg TID PRN PO 11/02/17 06:30 12/02/17 06:29 11/04/17 07:43 0.5 MG Tolterodine Tartrate (Detrol Tab) 2 mg BID PO 11/02/17 09:00 12/02/17 08:59 11/04/17 08:48 2 MG Ferrous Sulfate (Feosol Tab) 325 mg DAILY PO 11/02/17 09:00 12/02/17 08:59 11/04/17 08:48 325 MG Furosemide 40 mg/ Syringe 4 ml @ 4 mls/min BID17 IV 11/02/17 17:00 12/02/17 16:59 Future Hold 11/03/17 17:40 4 MLS/MIN Nitroglycerin (Nitroglycerin 2% Oint) 1 inch Q6H EXT 11/02/17 08:00 12/02/17 07:59 11/04/17 15:12 1 INCH Aspirin (Ecotrin Tab) 81 mg DAILY PO 11/03/17 09:00 12/03/17 08:59 11/04/17 07:44 81 MG Pantoprazole Sodium (Protonix Tab) 40 mg QAM PO 11/02/17 09:00 12/02/17 08:59 11/04/17 08:48 40 MG Losartan Potassium (coZAAR TAB) 25 mg QAM PO 11/03/17 09:00 12/03/17 08:59 11/04/17 07:44 25 MG Metoprolol Succinate (Toprol Xl Tab) 75 mg QAM PO 11/04/17 09:00 12/03/17 08:59 11/04/17 07:44 75 MG Acetaminophen (Tylenol Tab) 1,000 mg Q8 PO 11/03/17 14:00 12/03/17 13:59 11/04/17 05:03 1,000 MG Sodium Chloride 250 ml @ 999 mls/hr Q16M PRN IV 11/04/17 17:17 12/04/17 17:16 Atropine Sulfate (Atropine Sulfate 0.1mg/ml Inj) 0.6 mg PRN PRN IV 11/04/17 17:30 12/04/17 17:29
[2017-11-05] MEDS: ACETAMINOPHEN 500 MG TAB PO SCH ×4 (06:03→22:48)
[2017-11-05 06:26] LABS: CREATININE 0.72 mg/dl (0.60-1.20)
[2017-11-05 06:27] LABS: CALCIUM 9.4 mg/dl (8.5-10.1)
[2017-11-05] MEDS: ASPIRIN 81 MG ECTAB PO SCH (07:46)
[2017-11-05] MEDS: DOCUSATE SODIUM 100 MG CAP PO SCH ×2 (07:46→20:53)
[2017-11-05] MEDS: PAROXETINE 20 MG TAB PO SCH (07:46)
[2017-11-05] MEDS: LOSARTAN POTASSIUM 25 MG TAB PO SCH (07:46)
[2017-11-05] MEDS: FERROUS SULFATE 325 MG TAB PO SCH (07:46)
[2017-11-05] MEDS: PANTOprazole SOD 40 MG TAB PO SCH (07:47)
[2017-11-05] MEDS: METOPROLOL SUCC 25MG EXT REL TAB PO SCH (07:47)
[2017-11-05] MEDS: ENOXAPARIN 40 MG/0.4 ML SYR SQ SCH (07:47)
[2017-11-05] MEDS: TOLTERODINE TARTRATE 2 MG TAB PO SCH ×2 (07:47→20:53)
[2017-11-05] MEDS: MAGNESIUM SULFATE 1GM / D5W 100 ML IV SCH ×3 (08:55→12:21)
--- NOTE | 2017-11-05 09:24 | Progress Note ---
Medicine Progress Note Date & Time of Visit: November 05, 2017 at 09:17. Subjective 77 yo F who recently picked up smoking presents with acute respiratory failure 2 /2 pulmonary edema. She was placed on BIPAP and admitted to the ICU overnight with improvement. She appears pleasantly demented this morning without evidence of delirium. She says that she is feeling better than yesterday. ROS is not able to clearly be obtained 2/2 dementia. She underwent cath yesterday revealing nonobstructive disease. Sites look good this morning and there is no bleeding issues or acute back pain issues overnight. Telemetry review reveals persistent sinus rhythm at a normal rate overnight. Objective Last 8 Hrs Date Time Temp Pulse Resp B/P (MAP) Pulse Ox O2 Delivery O2 Flow Rate FiO2 11/05/17 08:00 Nasal Cannula 2.0 11/05/17 06:32 36.1 83 18 137/83 (101) 95 2.0 11/05/17 04:01 Nasal Cannula 2.0 11/05/17 03:05 37.0 75 18 138/81 (100) 97 2.0 Physical Exam: GEN: obese, in no acute distress, alert and oriented to place and self. Able to follow instructions, no delirium. HEENT: NC/AT, normal sclerae CARDIO: reg rate, S1/2 heard without m/g/r LUNGS: CTA bilaterally, no crackles, rales or wheezes, good diaphragmatic excursion ABD: soft, non-tender, non-distended, no rebound or guarding EXTREMITY: RP and DP palpable 2+ bilat, no LE swelling or edema, extremities are warm and well-perfused NEURO: CN 2-12 grossly intact, exam limited as patient confused. MUSC: moves all extremities equally. Able to sit up in bed on her own. SKIN: warm and dry, Radial and groin access sites from cath were inspected and skin appears normal without bruising. Laboratory Results: 11/04/17 05:20 11/05/17 05:35 Test 11/02/17 03:47 11/02/17 03:48 11/02/17 05:28 11/02/17 11:44 Prothrombin Time 11.7 SECONDS (9.0-12.0) Prothromb Time International Ratio 1.1 (0.9-1.1) Procalcitonin < 0.05 ng/ml (0-0.5) Pro-B-Type Natriuretic Peptide 6948 pg/ml (0-900) Arterial Blood pH 7.36 (7.35-7.45) Arterial Blood Partial Pressure CO2 41 mmHg (35-46) Arterial Blood Partial Pressure O2 179 mm/Hg (80-95) Arterial Blood HCO3 23 mmol/L (19-24) Arterial Blood Oxygen Saturation 99.3 % (90-95) Arterial Blood Base Excess -2.6 mEq/L (-9-1.8) Arterial Blood Gas Delivery 100% Greg Test POS (POS) Thyroid Stimulating Hormone (TSH) < 0.005 uIu/ml (0.300-4.500) Total Triiodothyronine 1.39 ng/ml (0.60-1.81) Triglycerides Level 141 mg/dl (0-150) Cholesterol Level 142 mg/dl (0-200) HDL Cholesterol 30 mg/dl LDL Cholesterol, Calculated 84 mg/dl VLDL Cholesterol, Calculated 28 mg/dl Cholesterol/HDL Ratio 4.7 Test 11/02/17 14:36 11/02/17 14:45 11/02/17 23:54 11/03/17 03:45 Blood Gas Sample Site R Radial Bedside Blood Gas pH (LAB) 7.44 (7.35-7.45) Bedside Blood Gas pCO2 (LAB) 33 mmHg (35-46) Bedside Blood Gas pO2 (LAB) 112 mmHg (80-95) Bedside Blood Gas HCO3 (LAB) 22 meq/L (19-24) Bedside Blood Gas Total CO2 23 mEq/l (24-31) Bedside Blood Gas Base Excess (LAB) -2.0 meq/L (-9-1.8) Bedside Blood Gas O2 Saturation 99.0 % (90-95) Greg Test Pass Oxygen Delivery Device BIPAP Bedside Oxygen Rate (breaths/min) 12 Bedside FiO2 35 % Blood Gas IPAP 12 Lactic Acid Level 0.9 mmol/L (0.4-2.0) Total Bilirubin 0.6 mg/dl (0.2-1) Direct Bilirubin 0.1 mg/dl (0-0.2) Aspartate Amino Transf (AST/SGOT) 26 U/L (15-37) Alanine Aminotransferase (ALT/SGPT) 16 U/L (12-78) Alkaline Phosphatase 73 U/L (45-117) Ammonia 25.6 umol/L (11-32) Total Protein 5.8 gm/dl (6.4-8.2) Albumin 2.8 gm/dl (3.4-5.0) Bedside Glucose 117 mg/dl (70-90) Immature Granulocyte % (Auto) 0.1 % White Blood Count 7.48 K/uL (4.8-10.8) Red Blood Count 3.27 M/uL (4.2-5.4) Hemoglobin 8.8 g/dL (12.0-16.0) Hematocrit 27.4 % (37-47) Mean Corpuscular Volume 83.8 fL (80-100) Mean Corpuscular Hemoglobin 26.9 pg (25-34) Mean Corpuscular Hemoglobin Concent 32.1 g/dl (32-36) Platelet Count 244 K/uL (130-400) Mean Platelet Volume 9.0 fL (7.4-10.4) Neutrophils (%) (Auto) 58.4 % Lymphocytes (%) (Auto) 27.8 % Monocytes (%) (Auto) 10.0 % Eosinophils (%) (Auto) 3.6 % Basophils (%) (Auto) 0.1 % Neutrophils # (Auto) 4.36 K/uL (1.4-6.5) Lymphocytes # (Auto) 2.08 K/uL (1.2-3.4) Monocytes # (Auto) 0.75 K/uL (0.11-0.59) Eosinophils # (Auto) 0.27 K/uL (0-0.5) Basophils # (Auto) 0.01 K/uL (0-0.2) Immature Granulocyte # (Auto) 0.01 K/uL (0.00-0.02) Red Blood Cell Morphology Unremarkable Phosphorus Level 3.4 mg/dl (2.5-4.9) Free Thyroxine 2.85 ng/dl (0.80-1.60) Free Triiodothyronine 4.28 pg/ml (2.30-4.20) Thyroid Antimicrosomal Antibody 8 IU/ML (<9) Test 11/03/17 05:06 11/04/17 05:20 11/05/17 05:35 Total Creatine Kinase 42 U/L (26-192) Creatine Kinase MB 2.0 ng/ml (0.5-3.6) Creatine Kinase MB Ratio 4.8 (0-3.0) Troponin I 1.130 ng/ml (0-0.045) Red Blood Count 3.48 M/uL (4.2-5.4) Mean Corpuscular Volume 83.6 fL (80-100) Mean Corpuscular Hemoglobin 26.7 pg (25-34) Mean Corpuscular Hemoglobin Concent 32.0 g/dl (32-36) RDW Standard Deviation 46.1 fL (36.4-46.3) RDW Coefficient of Variation 15.1 % (11.5-14.5) Mean Platelet Volume 9.0 fL (7.4-10.4) Activated Partial Thromboplast Time 46.5 SECONDS (21.0-31.0) Partial Thromboplastin Ratio 1.8 Anion Gap 5.0 mmol/L (3-11) Est Creatinine Clear Calc Drug Dose 66.1 ml/min Estimated GFR () 94.9 Estimated GFR (Non- 81.9 BUN/Creatinine Ratio 15.3 (10-20) Calcium Level 9.4 mg/dl (8.5-10.1) Magnesium Level 1.7 mg/dl (1.8-2.4) Date/Time Source Procedure Growth Status 11/02/17 05:28 Blood Blood Culture - Preliminary NO GROWTH TO DATE. Resulted 11/02/17 07:45 Nasal MRSA DNA Surveillance Screen - Final Specimen Negative for MRSA by DNA Probe Complete Last 24 Hours Test 11/05/17 05:35 Sodium Level 136 mmol/L Potassium Level 4.0 mmol/L Chloride Level 102 mmol/L Carbon Dioxide Level 29 mmol/L Anion Gap 5.0 mmol/L Blood Urea Nitrogen 11 mg/dl Creatinine 0.72 mg/dl Est Creatinine Clear Calc Drug Dose 66.1 ml/min Estimated GFR () 94.9 Estimated GFR (Non- 81.9 BUN/Creatinine Ratio 15.3 Random Glucose 84 mg/dl Calcium Level 9.4 mg/dl Magnesium Level 1.7 mg/dl Assessment & Plan 77 yo F who recently picked up smoking presents with acute respiratory failure 2 /2 pulmonary edema. She was placed on BIPAP and admitted to the ICU overnight with improvement. She appears pleasantly demented this morning without evidence of delirium. She says that she is feeling better than yesterday. ROS is not able to clearly be obtained 2/2 dementia. She underwent cath yesterday revealing nonobstructive disease. Sites look good this morning and there is no bleeding issues or acute back pain issues overnight. Telemetry review reveals persistent sinus rhythm at a normal rate overnight. 1. Acute pulmonary edema 2/2 atrial fibrillation with RVR-mild hypoxia still exists. Repeat CXR this morning. No cough, fevers present so doubt pneumonia. Wean oxygen as tolerated. Continue Lasix and with Imdur added yesterday, nitro paste was stopped. 2. New onset atrial fibrillation-she spontaneously converted to sinus rhythm on HD2 and remains on Toprol for now. Plan to start coumadin today and follow- up with Cardiology as outpatient for long-term care goals. Pt is planned for SNF on discharge. 3. NSTEMI 2/2 demand ischemia-per catheterization nonobstructive CAD was noted. Continue medical management per cardiology. 4. Metabolic encephalopathy 2/2 above-appears resolved today. Likely was a result more of the anesthesia she received during the cath yesterday. 5. Neck soreness-likely musculoskeletal continue scheduled Tylenol. Patient is unable to tell me if this is helping much but appears to be tolerating it well. 6. HTN-controlled, cont Losartan 7. Tobacco use. 8. Hyperthyroidism-2/2 exogenous Synthroid overdosing. Holding Synthroid replacement with recheck in 6 weeks. 9. Anemia-stable, likely related to dilutional effect from IVF vs phlebotomy. No indication for transfusion at this time. DVT prophy-Lovenox/Coumadin Full Code Dispo-to telemetry Chelsy Knight DO [facility] Hospitalist Consultants: ICU-[facility] Current Inpatient Medications: Current Inpatient Medications Medications (Trade) Dose Ordered Sig/[place] Route Start Time Stop Time Status Last Admin Dose Admin Ipratropium [place] (Atrovent 0.02% 0.5MG/2.5ML Neb) 0.5 mg Q4H PRN INH 11/02/17 05:30 12/02/17 05:29 Levalbuterol (Xopenex 1.25MG/ 0.5ML Neb) 1.25 mg Q4H PRN INH 11/02/17 05:30 12/02/17 05:29 Nitroglycerin (Nitrostat Tab) 0.4 mg UD PRN SL 11/02/17 06:30 12/02/17 06:29 Tramadol HCl (Ultram Tab) 25 mg Q6H PRN PO 11/02/17 06:30 12/02/17 06:29 11/04/17 22:02 25 MG Prochlorperazine Edisylate 5 mg/ Syringe 5 ml @ 5 mls/min Q6H PRN IV 11/02/17 06:30 12/02/17 06:29 Morphine Sulfate (MoRPHine SULFATE INJ) 4 mg Q4H PRN IV 11/02/17 06:30 11/16/17 06:29 Clonazepam (Klonopin Tab) 0.5 mg TID PRN PO 11/02/17 06:30 12/02/17 06:29 11/04/17 22:01 0.5 MG Docusate Sodium (coLACE CAP) 100 mg BID PO 11/02/17 09:00 12/02/17 08:59 11/05/17 07:46 100 MG Paroxetine HCl (pAXil TAB) 40 mg DAILY PO 11/02/17 09:00 12/02/17 08:59 11/05/17 07:46 40 MG Tolterodine Tartrate (Detrol Tab) 2 mg BID PO 11/02/17 09:00 12/02/17 08:59 11/05/17 07:47 2 MG Ferrous Sulfate (Feosol Tab) 325 mg DAILY PO 11/02/17 09:00 12/02/17 08:59 11/05/17 07:46 325 MG Furosemide 40 mg/ Syringe 4 ml @ 4 mls/min BID17 IV 11/02/17 17:00 12/02/17 16:59 Future Hold 11/03/17 17:40 4 MLS/MIN Aspirin (Ecotrin Tab) 81 mg DAILY PO 11/03/17 09:00 12/03/17 08:59 11/05/17 07:46 81 MG Pantoprazole Sodium (Protonix Tab) 40 mg QAM PO 11/02/17 09:00 12/02/17 08:59 11/05/17 07:47 40 MG Losartan Potassium (coZAAR TAB) 25 mg QAM PO 11/03/17 09:00 12/03/17 08:59 11/05/17 07:46 25 MG Metoprolol Succinate (Toprol Xl Tab) 75 mg QAM PO 11/04/17 09:00 12/03/17 08:59 11/05/17 07:47 75 MG Acetaminophen (Tylenol Tab) 1,000 mg Q8 PO 11/03/17 14:00 12/03/17 13:59 11/05/17 06:03 1,000 MG Sodium Chloride 250 ml @ 999 mls/hr Q16M PRN IV 11/04/17 17:17 12/04/17 17:16 Atropine Sulfate (Atropine Sulfate 0.1mg/ml Inj) 0.6 mg PRN PRN IV 11/04/17 17:30 12/04/17 17:29 Enoxaparin Sodium (Lovenox Inj) 40 mg DAILY SQ 11/05/17 09:00 12/05/17 08:59 11/05/17 07:47 40 MG Warfarin Sodium (Coumadin Tab) 5 mg DAILY@16 PO 11/05/17 16:00 12/05/17 15:59 Magnesium Sulfate 100 ml @ 100 mls/hr Q1H IV 11/05/17 08:30 11/05/17 11:29 11/05/17 08:55 100 MLS/HR Ropinirole HCl (Requip Tab) 0.5 mg TID PO 11/05/17 14:00 12/02/17 06:29 UNV
--- NOTE | 2017-11-05 10:51 | DIAGNOSTIC IMAGING REPORT ---
CHEST ONE VIEW PORTABLE CLINICAL HISTORY: 77 years-old Female presenting with recent pulmonary edema, persistent hypoxia. TECHNIQUE: Portable upright AP view of the chest was obtained. COMPARISON: 11/03/2017. FINDINGS: Atherosclerosis of aortic arch. Cardiac silhouette enlarged. Prominence of pulmonary vasculature. Mildly low lung volumes with hypoventilatory changes. No large effusion or pneumothorax. Buttress plate and screw fixation of the right humerus. External leads project over the upper abdomen. IMPRESSION: 1. Cardiomegaly with mild congestive change. No uday pulmonary edema. 2. Low lung volumes with hypoventilatory changes. Electronically signed by: Ralph Saldivar M.D. 11/05/2017 10:50 AM Dictated Date/Time: 11/05/2017 10:46 AM
[2017-11-05] MEDS ORDERED: ISOSORBIDE MONONITRATE 30 MG TABCR PO ONE (11:49)
[2017-11-05] MEDS: ROPINIROLE HCL 1 MG TAB PO SCH ×2 (13:24→20:52)
--- NOTE | 2017-11-05 13:53 | CARDIOLOGY CONSULTATION ---
DATE OF CONSULTATION: 11/05/2017 The patient seen and examined. Chart, medications, telemetry reviewed. SUBJECTIVE: The patient is much more sedated this morning, answering questions appropriately. She is reluctantly consented and agreed to be placed in an extended care facility. Denies any chest pains. Notes no tachypalpitations. Notes no orthopnea. There have been no arrhythmias noted on telemetry overnight. OBJECTIVE: VITAL SIGNS: Heart rate 75, blood pressure is 135/70. NECK: Thin. There is no jugular venous distention. No carotid bruits. LUNGS: Clear. CARDIOVASCULAR EXAMINATION: Regular. There is no S3 gallop. ABDOMEN: Soft, nontender. EXTREMITIES: Without cyanosis or clubbing. There is no peripheral edema. Right radial and right femoral puncture sites are healing well. IMPRESSION: This is a 77-year-old female admitted with issues as follows: 1. Atrial fibrillation very rapid response with spontaneous conversion to sinus rhythm. 2. Acute pulmonary edema secondary to above. 3. Non-ST segment elevation myocardial infarction, demand based in the setting of moderate diffuse nonobstructive coronary disease and tachycardia. 4. Mild dementia. RECOMMENDATIONS: We will switch nitroglycerin paste to oral, continue metoprolol at current dosing and losartan reflecting a mild reduction in baseline level. We would add atorvastatin at 20 mg per day, continue aspirin and initiation of anticoagulation with warfarin given planned management in an extended care facility. The patient is hemodynamically and clinically stable. The above recommendations as noted. We will sign off.
[2017-11-05] MEDS ORDERED: HALOPERIDOL LACTATE 5 MG/ML 1 ML VIAL IV STA (15:48)
[2017-11-05] MEDS: HALOPERIDOL LACTATE 5 MG/ML 1 ML VIAL ONE (16:09)
[2017-11-05] MEDS ORDERED: NURSING VERBAL MED ORDER ONE (16:45)
[2017-11-05] MEDS: WARFARIN SOD 5 MG TAB PO SCH (16:49)
[2017-11-05] MEDS: HALOPERIDOL LACTATE 5 MG/ML 1 ML VIAL IV PRN ×2 (16:49→23:56)
[2017-11-05] MEDS: TRAMADOL HCL 50 MG TAB PO PRN (19:47)
[2017-11-06] VITALS (8 sets, daily range): BP systolic 118–174; BP diastolic 72–83; PULSE 69–85; TEMP 36.6–37.1; O2SAT 95–99
[2017-11-06] MEDS: CLONAZEPAM 0.5 MG TAB PO PRN (03:04)
[2017-11-06 05:41] LABS: HEMATOCRIT 29.3 % (37-47); HEMOGLOBIN 9.6 g/dL (12.0-16.0); MEAN CELL VOLUME 82.3 fL (80-100); MEAN CORPUSCULAR HGB CONC 32.8 g/dl (32-36); MEAN PLATELET VOLUME 8.8 fL (7.4-10.4); PLATELET COUNT 260 K/uL (130-400); RED CELL DISTRIBUTION WIDTH CV 14.7 % (11.5-14.5); RED CELL DISTRIBUTION WIDTH SD 44.1 fL (36.4-46.3); WHITE BLOOD COUNT 5.94 K/uL (4.8-10.8)
[2017-11-06] MEDS: ACETAMINOPHEN 500 MG TAB PO SCH ×3 (05:57→20:25)
[2017-11-06 05:58] LABS: INR 1.2 (0.9-1.1)
[2017-11-06 06:09] LABS: CALCIUM 9.7 mg/dl (8.5-10.1); CREATININE 0.6 mg/dl (0.60-1.20); POTASSIUM 3.7 mmol/L (3.5-5.1)
[2017-11-06] MEDS: ROPINIROLE HCL 1 MG TAB PO SCH (08:09)
[2017-11-06] MEDS: ISOSORBIDE MONONITRATE 30 MG TABCR PO SCH (08:11)
[2017-11-06] MEDS: ATORVASTATIN 20 MG TAB PO SCH (08:11)
[2017-11-06] MEDS: DOCUSATE SODIUM 100 MG CAP PO SCH ×2 (08:12→20:26)
[2017-11-06] MEDS: PANTOprazole SOD 40 MG TAB PO SCH (08:13)
[2017-11-06] MEDS: LOSARTAN POTASSIUM 25 MG TAB PO SCH ×2 (08:13→20:24)
[2017-11-06] MEDS: METOPROLOL SUCC 25MG EXT REL TAB PO SCH (08:13)
[2017-11-06] MEDS: ENOXAPARIN 40 MG/0.4 ML SYR SQ SCH (08:14)
[2017-11-06] MEDS: ASPIRIN 81 MG ECTAB PO SCH (08:14)
[2017-11-06] MEDS: FERROUS SULFATE 325 MG TAB PO SCH (08:14)
[2017-11-06] MEDS: PAROXETINE 20 MG TAB PO SCH (08:14)
[2017-11-06] MEDS: RISPERIDONE 0.5 MG TAB PO SCH ×2 (10:00→20:26)
--- NOTE | 2017-11-06 10:46 | PROGRESS NOTE ---
DATE: 11/06/2017 Telemetry reviewed. No further atrial arrhythmias. Blood pressures are trending higher. We will increase losartan, previously reduced to 25 mg twice per day, back to such a home regimen. The patient is on 50 mg of losartan at home prior to admission.
[2017-11-06] MEDS: HALOPERIDOL LACTATE 5 MG/ML 1 ML VIAL ONE (14:53)
--- NOTE | 2017-11-06 15:39 | Progress Note ---
Medicine Progress Note Date & Time of Visit: November 06, 2017 at 13:59. Subjective 77 yo F who recently picked up smoking presents with acute respiratory failure 2 /2 pulmonary edema in the setting of new onset atrial fibrillation with RVR. She was placed on BIPAP and admitted to the ICU overnight with improvement. She has been doing well in the last several days except for some episodes of delirium with combativeness. She underwent a cardiac catheterization on 11/04 revealing nonobstructive disease. She was started on coumadin yesterday for afib. Yesterday and overnight she did require several doses of Haldol for combativeness. She appears pleasantly demented this morning without evidence of delirium. She says that she is feeling better than yesterday. ROS is not able to clearly be obtained 2/2 dementia. Objective Last 8 Hrs Date Time Temp Pulse Resp B/P (MAP) Pulse Ox O2 Delivery O2 Flow Rate FiO2 11/06/17 12:00 95 Nasal Cannula 2.0 11/06/17 10:56 36.8 73 20 131/73 (92) 96 Nasal Cannula 2.0 11/06/17 08:00 98 Nasal Cannula 2.0 11/06/17 07:08 36.6 77 19 169/73 (105) 99 Nasal Cannula 2.0 Physical Exam: GEN: obese, in no acute distress, alert and oriented to place and self. Able to follow instructions, no delirium. HEENT: NC/AT, normal sclerae CARDIO: reg rate, S1/2 heard without m/g/r LUNGS: CTA bilaterally, no crackles, rales or wheezes, good diaphragmatic excursion ABD: soft, non-tender, non-distended, no rebound or guarding EXTREMITY: RP and DP palpable 2+ bilat, no LE swelling or edema, extremities are warm and well-perfused NEURO: CN 2-12 grossly intact, exam limited as patient confused. MUSC: moves all extremities equally. Able to sit up in bed on her own. SKIN: warm and dry, Radial and groin access sites from cath were inspected and skin appears normal without bruising. Laboratory Results: 11/06/17 05:18 11/06/17 05:18 Test 11/02/17 03:47 11/02/17 03:48 11/02/17 05:28 11/02/17 11:44 Procalcitonin < 0.05 ng/ml (0-0.5) Pro-B-Type Natriuretic Peptide 6948 pg/ml (0-900) Arterial Blood pH 7.36 (7.35-7.45) Arterial Blood Partial Pressure CO2 41 mmHg (35-46) Arterial Blood Partial Pressure O2 179 mm/Hg (80-95) Arterial Blood HCO3 23 mmol/L (19-24) Arterial Blood Oxygen Saturation 99.3 % (90-95) Arterial Blood Base Excess -2.6 mEq/L (-9-1.8) Arterial Blood Gas Delivery 100% Greg Test POS (POS) Thyroid Stimulating Hormone (TSH) < 0.005 uIu/ml (0.300-4.500) Total Triiodothyronine 1.39 ng/ml (0.60-1.81) Triglycerides Level 141 mg/dl (0-150) Cholesterol Level 142 mg/dl (0-200) HDL Cholesterol 30 mg/dl LDL Cholesterol, Calculated 84 mg/dl VLDL Cholesterol, Calculated 28 mg/dl Cholesterol/HDL Ratio 4.7 Test 11/02/17 14:36 11/02/17 14:45 11/03/17 03:45 11/03/17 05:06 Blood Gas Sample Site R Radial Bedside Blood Gas pH (LAB) 7.44 (7.35-7.45) Bedside Blood Gas pCO2 (LAB) 33 mmHg (35-46) Bedside Blood Gas pO2 (LAB) 112 mmHg (80-95) Bedside Blood Gas HCO3 (LAB) 22 meq/L (19-24) Bedside Blood Gas Total CO2 23 mEq/l (24-31) Bedside Blood Gas Base Excess (LAB) -2.0 meq/L (-9-1.8) Bedside Blood Gas O2 Saturation 99.0 % (90-95) Greg Test Pass Oxygen Delivery Device BIPAP Bedside Oxygen Rate (breaths/min) 12 Bedside FiO2 35 % Blood Gas IPAP 12 Lactic Acid Level 0.9 mmol/L (0.4-2.0) Total Bilirubin 0.6 mg/dl (0.2-1) Direct Bilirubin 0.1 mg/dl (0-0.2) Aspartate Amino Transf (AST/SGOT) 26 U/L (15-37) Alanine Aminotransferase (ALT/SGPT) 16 U/L (12-78) Alkaline Phosphatase 73 U/L (45-117) Ammonia 25.6 umol/L (11-32) Total Protein 5.8 gm/dl (6.4-8.2) Albumin 2.8 gm/dl (3.4-5.0) Immature Granulocyte % (Auto) 0.1 % White Blood Count 7.48 K/uL (4.8-10.8) Red Blood Count 3.27 M/uL (4.2-5.4) Hemoglobin 8.8 g/dL (12.0-16.0) Hematocrit 27.4 % (37-47) Mean Corpuscular Volume 83.8 fL (80-100) Mean Corpuscular Hemoglobin 26.9 pg (25-34) Mean Corpuscular Hemoglobin Concent 32.1 g/dl (32-36) Platelet Count 244 K/uL (130-400) Mean Platelet Volume 9.0 fL (7.4-10.4) Neutrophils (%) (Auto) 58.4 % Lymphocytes (%) (Auto) 27.8 % Monocytes (%) (Auto) 10.0 % Eosinophils (%) (Auto) 3.6 % Basophils (%) (Auto) 0.1 % Neutrophils # (Auto) 4.36 K/uL (1.4-6.5) Lymphocytes # (Auto) 2.08 K/uL (1.2-3.4) Monocytes # (Auto) 0.75 K/uL (0.11-0.59) Eosinophils # (Auto) 0.27 K/uL (0-0.5) Basophils # (Auto) 0.01 K/uL (0-0.2) Immature Granulocyte # (Auto) 0.01 K/uL (0.00-0.02) Red Blood Cell Morphology Unremarkable Phosphorus Level 3.4 mg/dl (2.5-4.9) Free Thyroxine 2.85 ng/dl (0.80-1.60) Free Triiodothyronine 4.28 pg/ml (2.30-4.20) Thyroid Antimicrosomal Antibody 8 IU/ML (<9) Total Creatine Kinase 42 U/L (26-192) Creatine Kinase MB 2.0 ng/ml (0.5-3.6) Creatine Kinase MB Ratio 4.8 (0-3.0) Troponin I 1.130 ng/ml (0-0.045) Test 11/04/17 05:20 11/06/17 05:18 11/06/17 07:26 Activated Partial Thromboplast Time 46.5 SECONDS (21.0-31.0) Partial Thromboplastin Ratio 1.8 Red Blood Count 3.56 M/uL (4.2-5.4) Mean Corpuscular Volume 82.3 fL (80-100) Mean Corpuscular Hemoglobin 27.0 pg (25-34) Mean Corpuscular Hemoglobin Concent 32.8 g/dl (32-36) RDW Standard Deviation 44.1 fL (36.4-46.3) RDW Coefficient of Variation 14.7 % (11.5-14.5) Mean Platelet Volume 8.8 fL (7.4-10.4) Prothrombin Time 12.2 SECONDS (9.0-12.0) Prothromb Time International Ratio 1.2 (0.9-1.1) Anion Gap 6.0 mmol/L (3-11) Est Creatinine Clear Calc Drug Dose 78.2 ml/min Estimated GFR () 103.3 Estimated GFR (Non- 89.2 BUN/Creatinine Ratio 12.6 (10-20) Calcium Level 9.7 mg/dl (8.5-10.1) Magnesium Level 1.9 mg/dl (1.8-2.4) Bedside Glucose 113 mg/dl (70-90) Date/Time Source Procedure Growth Status 11/02/17 05:28 Blood Blood Culture - Preliminary NO GROWTH TO DATE. Resulted 11/02/17 07:45 Nasal MRSA DNA Surveillance Screen - Final Specimen Negative for MRSA by DNA Probe Complete Last 24 Hours Test 11/05/17 16:05 11/06/17 05:18 11/06/17 07:26 Bedside Glucose 103 mg/dl 113 mg/dl White Blood Count 5.94 K/uL Red Blood Count 3.56 M/uL Hemoglobin 9.6 g/dL Hematocrit 29.3 % Mean Corpuscular Volume 82.3 fL Mean Corpuscular Hemoglobin 27.0 pg Mean Corpuscular Hemoglobin Concent 32.8 g/dl RDW Standard Deviation 44.1 fL RDW Coefficient of Variation 14.7 % Platelet Count 260 K/uL Mean Platelet Volume 8.8 fL Prothrombin Time 12.2 SECONDS Prothromb Time International Ratio 1.2 Sodium Level 136 mmol/L Potassium Level 3.7 mmol/L Chloride Level 103 mmol/L Carbon Dioxide Level 27 mmol/L Anion Gap 6.0 mmol/L Blood Urea Nitrogen 8 mg/dl Creatinine 0.60 mg/dl Est Creatinine Clear Calc Drug Dose 78.2 ml/min Estimated GFR () 103.3 Estimated GFR (Non- 89.2 BUN/Creatinine Ratio 12.6 Random Glucose 93 mg/dl Calcium Level 9.7 mg/dl Magnesium Level 1.9 mg/dl Assessment & Plan 77 yo F who recently picked up smoking presents with acute respiratory failure 2 /2 pulmonary edema in the setting of new onset atrial fibrillation with RVR. She was placed on BIPAP and admitted to the ICU overnight with improvement. She has been doing well in the last several days except for some episodes of delirium with combativeness. She underwent a cardiac catheterization on 11/04 revealing nonobstructive disease. She was started on coumadin yesterday for afib. Yesterday and overnight she did require several doses of Haldol for combativeness. She appears pleasantly demented this morning without evidence of delirium. She says that she is feeling better than yesterday. ROS is not able to clearly be obtained 2/2 dementia. 1. Acute pulmonary edema 2/2 atrial fibrillation with RVR-hypoxia is resolved. Repeat CXR this morning. Cont Imdur. 2. New onset atrial fibrillation-she spontaneously converted to sinus rhythm on HD2 and remains on Toprol for now. Coumadin was started on 11/05 and follow- up with Cardiology as outpatient for long-term care goals. Pt is planned for SNF on discharge. Maintained in sinus rhythm on telemetry with no acute events overnight. 3. NSTEMI 2/2 demand ischemia-per catheterization nonobstructive CAD was noted. Continue medical management per cardiology. 4. Dementia-intermittent delirium likely 2/2 hyperthyroid state, recent anesthesia for cardiac cath and hospitalization. As Detrol and ropinorole may be playing a role, these were also stopped. Risperidone was started twice daily in hopes of not requiring additional antipsychotic IV. 5. Neck soreness-likely musculoskeletal continue scheduled Tylenol. Patient is unable to tell me if this is helping much but appears to be tolerating it well. 6. HTN-controlled, cont Losartan at reduced dose per Cardiology 7. Tobacco use. 8. Hyperthyroidism-2/2 exogenous Synthroid overdosing. Holding Synthroid replacement with recheck in 6 weeks. 9. Anemia-stable, likely related to dilutional effect from IVF vs phlebotomy. No indication for transfusion at this time. DVT prophy-Lovenox/Coumadin Full Code Dispo-transfer to Med/Surg. DO [facility] [place] Hospitalist Consultants: ICU-[facility] Current Inpatient Medications: Current Inpatient Medications Medications (Trade) Dose Ordered Sig/[place] Route Start Time Stop Time Status Last Admin Dose Admin Ipratropium [place] (Atrovent 0.02% 0.5MG/2.5ML Neb) 0.5 mg Q4H PRN INH 11/02/17 05:30 12/02/17 05:29 Levalbuterol (Xopenex 1.25MG/ 0.5ML Neb) 1.25 mg Q4H PRN INH 11/02/17 05:30 12/02/17 05:29 Nitroglycerin (Nitrostat Tab) 0.4 mg UD PRN SL 11/02/17 06:30 12/02/17 06:29 Tramadol HCl (Ultram Tab) 25 mg Q6H PRN PO 11/02/17 06:30 12/02/17 06:29 11/05/17 19:47 25 MG Prochlorperazine Edisylate 5 mg/ Syringe 5 ml @ 5 mls/min Q6H PRN IV 11/02/17 06:30 12/02/17 06:29 Morphine Sulfate (MoRPHine SULFATE INJ) 4 mg Q4H PRN IV 11/02/17 06:30 11/16/17 06:29 Clonazepam (Klonopin Tab) 0.5 mg TID PRN PO 11/02/17 06:30 12/02/17 06:29 11/06/17 03:04 0.5 MG Docusate Sodium (coLACE CAP) 100 mg BID PO 11/02/17 09:00 12/02/17 08:59 11/06/17 08:12 100 MG Paroxetine HCl (pAXil TAB) 40 mg DAILY PO 11/02/17 09:00 12/02/17 08:59 11/06/17 08:14 40 MG Ferrous Sulfate (Feosol Tab) 325 mg DAILY PO 11/02/17 09:00 12/02/17 08:59 11/06/17 08:14 325 MG Furosemide 40 mg/ Syringe 4 ml @ 4 mls/min BID17 IV 11/02/17 17:00 12/02/17 16:59 Future Hold 11/03/17 17:40 4 MLS/MIN Aspirin (Ecotrin Tab) 81 mg DAILY PO 11/03/17 09:00 12/03/17 08:59 11/06/17 08:14 81 MG Pantoprazole Sodium (Protonix Tab) 40 mg QAM PO 11/02/17 09:00 12/02/17 08:59 11/06/17 08:13 40 MG Metoprolol Succinate (Toprol Xl Tab) 75 mg QAM PO 11/04/17 09:00 12/03/17 08:59 11/06/17 08:13 75 MG Acetaminophen (Tylenol Tab) 1,000 mg Q8 PO 11/03/17 14:00 12/03/17 13:59 11/06/17 05:57 1,000 MG Sodium Chloride 250 ml @ 999 mls/hr Q16M PRN IV 11/04/17 17:17 12/04/17 17:16 Atropine Sulfate (Atropine Sulfate 0.1mg/ml Inj) 0.6 mg PRN PRN IV 11/04/17 17:30 12/04/17 17:29 Enoxaparin Sodium (Lovenox Inj) 40 mg DAILY SQ 11/05/17 09:00 12/05/17 08:59 11/06/17 08:14 40 MG Warfarin Sodium (Coumadin Tab) 5 mg DAILY@16 PO 11/05/17 16:00 12/05/17 15:59 11/05/17 16:49 5 MG Isosorbide Mononitrate (Imdur Ext Rel Tab) 30 mg QAM PO 11/06/17 09:00 12/06/17 08:59 11/06/17 08:11 30 MG Atorvastatin Calcium (Lipitor Tab) 20 mg QAM PO 11/06/17 09:00 12/06/17 08:59 11/06/17 08:11 20 MG Risperidone (Risperdal Tab) 0.25 mg BID PO 11/06/17 09:00 12/06/17 08:59 11/06/17 10:00 0.25 MG Losartan Potassium (coZAAR TAB) 25 mg BID PO 11/06/17 21:00 12/03/17 08:59
[2017-11-06] MEDS: WARFARIN SOD 5 MG TAB PO SCH (16:01)
[2017-11-06] MEDS ORDERED: GABAPENTIN 100 MG CAP PO ONE (16:16)
[2017-11-06] MEDS: GABAPENTIN 100 MG CAP PO SCH (20:28)
[2017-11-07 00:31] VITALS: BP 166/65
[2017-11-07] MEDS: ACETAMINOPHEN 500 MG TAB PO SCH ×2 (05:59→13:33)
[2017-11-07 07:27] VITALS: BP 167/80; PULSE 66; TEMP 36.7; O2SAT 95
[2017-11-07 07:48] LABS: INR 2.3 (0.9-1.1)
[2017-11-07] MEDS: LOSARTAN POTASSIUM 25 MG TAB PO SCH ×2 (08:12→19:55)
[2017-11-07] MEDS: ASPIRIN 81 MG ECTAB PO SCH (08:12)
[2017-11-07] MEDS: METOPROLOL SUCC 25MG EXT REL TAB PO SCH (08:12)
[2017-11-07] MEDS: PANTOprazole SOD 40 MG TAB PO SCH (08:12)
[2017-11-07] MEDS: ISOSORBIDE MONONITRATE 30 MG TABCR PO SCH (08:13)
[2017-11-07] MEDS: PAROXETINE 20 MG TAB PO SCH (08:13)
[2017-11-07] MEDS: FERROUS SULFATE 325 MG TAB PO SCH (08:13)
[2017-11-07] MEDS: DOCUSATE SODIUM 100 MG CAP PO SCH ×2 (08:13→19:57)
[2017-11-07] MEDS: RISPERIDONE 0.5 MG TAB PO SCH ×2 (08:13→19:55)
[2017-11-07] MEDS: ATORVASTATIN 20 MG TAB PO SCH (08:13)
[2017-11-07] MEDS: ENOXAPARIN 40 MG/0.4 ML SYR SQ SCH (08:14)
[2017-11-07 14:40] VITALS: BP 114/67; PULSE 71; TEMP 36.7; O2SAT 99
[2017-11-07] MEDS: WARFARIN SOD 5 MG TAB PO SCH (15:56)
--- NOTE | 2017-11-07 18:13 | Progress Note ---
Medicine Progress Note Date & Time of Visit: November 07, 2017 at 1100. Subjective 77 yo F who recently picked up smoking presents with acute respiratory failure 2 /2 pulmonary edema in the setting of new onset atrial fibrillation with RVR. She was placed on BIPAP and admitted to the ICU overnight with improvement. She has been doing well in the last several days of her hospitalization except for some episodes of delirium with combativeness. She has been stable on risperidone twice daily scheduled. She is off one-to-one observation for at least 24 hours. She denies any current issues. Nurse noted a rash on her back which has been present there for at least 3 days and is unchanged. The rash is erythematous and papular all across her back but nowhere else on her body and the patient reports having these types of rashes in the past. We discussed having family members bring some clothing for her to wear from home as she may have some type of allergy to the detergent used in the hospital. Objective Last 8 Hrs Date Time Temp Pulse Resp B/P (MAP) Pulse Ox O2 Delivery O2 Flow Rate FiO2 11/07/17 14:40 36.7 71 22 114/67 (83) 99 Nasal Cannula 2.0 Physical Exam: GEN: obese, in no acute distress, alert oriented x 2. Able to follow instructions and converse appropriately, no delirium. HEENT: NC/AT, normal sclerae CARDIO: reg rate, S1/2 heard without m/g/r LUNGS: CTA bilaterally, no crackles, rales or wheezes, good diaphragmatic excursion ABD: soft, non-tender, non-distended, no rebound or guarding EXTREMITY: RP and DP palpable 2+ bilat, no LE swelling or edema, extremities are warm and well-perfused NEURO: CN 2-12 grossly intact, exam limited as patient confused. MUSC: moves all extremities equally. Able to sit up in bed on her own. SKIN: warm and dry Laboratory Results: 11/06/17 05:18 11/06/17 05:18 Test 11/02/17 03:47 11/02/17 03:48 11/02/17 05:28 11/02/17 11:44 Procalcitonin < 0.05 ng/ml (0-0.5) Pro-B-Type Natriuretic Peptide 6948 pg/ml (0-900) Arterial Blood pH 7.36 (7.35-7.45) Arterial Blood Partial Pressure CO2 41 mmHg (35-46) Arterial Blood Partial Pressure O2 179 mm/Hg (80-95) Arterial Blood HCO3 23 mmol/L (19-24) Arterial Blood Oxygen Saturation 99.3 % (90-95) Arterial Blood Base Excess -2.6 mEq/L (-9-1.8) Arterial Blood Gas Delivery 100% Greg Test POS (POS) Thyroid Stimulating Hormone (TSH) < 0.005 uIu/ml (0.300-4.500) Total Triiodothyronine 1.39 ng/ml (0.60-1.81) Triglycerides Level 141 mg/dl (0-150) Cholesterol Level 142 mg/dl (0-200) HDL Cholesterol 30 mg/dl LDL Cholesterol, Calculated 84 mg/dl VLDL Cholesterol, Calculated 28 mg/dl Cholesterol/HDL Ratio 4.7 Test 11/02/17 14:36 11/02/17 14:45 11/03/17 03:45 11/03/17 05:06 Blood Gas Sample Site R Radial Bedside Blood Gas pH (LAB) 7.44 (7.35-7.45) Bedside Blood Gas pCO2 (LAB) 33 mmHg (35-46) Bedside Blood Gas pO2 (LAB) 112 mmHg (80-95) Bedside Blood Gas HCO3 (LAB) 22 meq/L (19-24) Bedside Blood Gas Total CO2 23 mEq/l (24-31) Bedside Blood Gas Base Excess (LAB) -2.0 meq/L (-9-1.8) Bedside Blood Gas O2 Saturation 99.0 % (90-95) Greg Test Pass Oxygen Delivery Device BIPAP Bedside Oxygen Rate (breaths/min) 12 Bedside FiO2 35 % Blood Gas IPAP 12 Lactic Acid Level 0.9 mmol/L (0.4-2.0) Total Bilirubin 0.6 mg/dl (0.2-1) Direct Bilirubin 0.1 mg/dl (0-0.2) Aspartate Amino Transf (AST/SGOT) 26 U/L (15-37) Alanine Aminotransferase (ALT/SGPT) 16 U/L (12-78) Alkaline Phosphatase 73 U/L (45-117) Ammonia 25.6 umol/L (11-32) Total Protein 5.8 gm/dl (6.4-8.2) Albumin 2.8 gm/dl (3.4-5.0) Immature Granulocyte % (Auto) 0.1 % White Blood Count 7.48 K/uL (4.8-10.8) Red Blood Count 3.27 M/uL (4.2-5.4) Hemoglobin 8.8 g/dL (12.0-16.0) Hematocrit 27.4 % (37-47) Mean Corpuscular Volume 83.8 fL (80-100) Mean Corpuscular Hemoglobin 26.9 pg (25-34) Mean Corpuscular Hemoglobin Concent 32.1 g/dl (32-36) Platelet Count 244 K/uL (130-400) Mean Platelet Volume 9.0 fL (7.4-10.4) Neutrophils (%) (Auto) 58.4 % Lymphocytes (%) (Auto) 27.8 % Monocytes (%) (Auto) 10.0 % Eosinophils (%) (Auto) 3.6 % Basophils (%) (Auto) 0.1 % Neutrophils # (Auto) 4.36 K/uL (1.4-6.5) Lymphocytes # (Auto) 2.08 K/uL (1.2-3.4) Monocytes # (Auto) 0.75 K/uL (0.11-0.59) Eosinophils # (Auto) 0.27 K/uL (0-0.5) Basophils # (Auto) 0.01 K/uL (0-0.2) Immature Granulocyte # (Auto) 0.01 K/uL (0.00-0.02) Red Blood Cell Morphology Unremarkable Phosphorus Level 3.4 mg/dl (2.5-4.9) Free Thyroxine 2.85 ng/dl (0.80-1.60) Free Triiodothyronine 4.28 pg/ml (2.30-4.20) Thyroid Antimicrosomal Antibody 8 IU/ML (<9) Total Creatine Kinase 42 U/L (26-192) Creatine Kinase MB 2.0 ng/ml (0.5-3.6) Creatine Kinase MB Ratio 4.8 (0-3.0) Troponin I 1.130 ng/ml (0-0.045) Test 11/04/17 05:20 11/06/17 05:18 11/06/17 07:26 11/07/17 00:00 Activated Partial Thromboplast Time 46.5 SECONDS (21.0-31.0) Partial Thromboplastin Ratio 1.8 Red Blood Count 3.56 M/uL (4.2-5.4) Mean Corpuscular Volume 82.3 fL (80-100) Mean Corpuscular Hemoglobin 27.0 pg (25-34) Mean Corpuscular Hemoglobin Concent 32.8 g/dl (32-36) RDW Standard Deviation 44.1 fL (36.4-46.3) RDW Coefficient of Variation 14.7 % (11.5-14.5) Mean Platelet Volume 8.8 fL (7.4-10.4) Anion Gap 6.0 mmol/L (3-11) Est Creatinine Clear Calc Drug Dose 78.2 ml/min Estimated GFR () 103.3 Estimated GFR (Non- 89.2 BUN/Creatinine Ratio 12.6 (10-20) Calcium Level 9.7 mg/dl (8.5-10.1) Magnesium Level 1.9 mg/dl (1.8-2.4) Bedside Glucose 113 mg/dl (70-90) Urine Color YELLOW Urine Appearance CLEAR (CLEAR) Urine pH 7.0 (4.5-7.5) Urine Specific [place] 1.011 (1.000-1.030) Urine Protein NEG (NEG) Urine Glucose (UA) NEG (NEG) Urine Ketones NEG (NEG) Urine Occult Blood NEG (NEG) Urine Nitrite NEG (NEG) Urine Bilirubin NEG (NEG) Urine Urobilinogen NEG (NEG) Urine Leukocyte Esterase MODERATE (NEG) Urine WBC (Auto) 10-30 /hpf (0-5) Urine RBC (Auto) 0-4 /hpf (0-4) Urine Hyaline Casts (Auto) 0 /lpf (0-5) Urine Epithelial Cells (Auto) 10-20 /lpf (0-5) Urine Bacteria (Auto) NEG (NEG) Test 11/07/17 07:19 Prothrombin Time 23.3 SECONDS (9.0-12.0) Prothromb Time International Ratio 2.3 (0.9-1.1) Vitamin B12 Level 392 pg/mL (211-911) 25-Hydroxy Vitamin D Total 32.3 ng/ml (30-100) Folate 12.96 ng/mL (>5.38) Date/Time Source Procedure Growth Status 11/02/17 05:28 Blood Blood Culture - Final NO GROWTH Complete 11/02/17 07:45 Nasal MRSA DNA Surveillance Screen - Final Specimen Negative for MRSA by DNA Probe Complete 11/07/17 00:00 Urine , Clean Catch Urine Culture Pending Received Last 24 Hours Test 11/07/17 00:00 11/07/17 07:19 Urine Color YELLOW Urine Appearance CLEAR Urine pH 7.0 Urine Specific [place] 1.011 Urine Protein NEG Urine Glucose (UA) NEG Urine Ketones NEG Urine Occult Blood NEG Urine Nitrite NEG Urine Bilirubin NEG Urine Urobilinogen NEG Urine Leukocyte Esterase MODERATE Urine WBC (Auto) 10-30 /hpf Urine RBC (Auto) 0-4 /hpf Urine Hyaline Casts (Auto) 0 /lpf Urine Epithelial Cells (Auto) 10-20 /lpf Urine Bacteria (Auto) NEG Prothrombin Time 23.3 SECONDS Prothromb Time International Ratio 2.3 Vitamin B12 Level 392 pg/mL 25-Hydroxy Vitamin D Total 32.3 ng/ml Folate 12.96 ng/mL Date/Time Source Procedure Growth Status 11/07/17 00:00 Urine , Clean Catch Urine Culture Pending Received Assessment & Plan 77 yo F who recently picked up smoking presents with acute respiratory failure 2 /2 pulmonary edema in the setting of new onset atrial fibrillation with RVR. She was placed on BIPAP and admitted to the ICU overnight with improvement. She has been doing well in the last several days of her hospitalization except for some episodes of delirium with combativeness. She has been stable on risperidone twice daily scheduled. She is off one-to-one observation for at least 24 hours. She denies any current issues. Nurse noted a rash on her back which has been present there for at least 3 days and is unchanged. The rash is erythematous and papular all across her back but nowhere else on her body and the patient reports having these types of rashes in the past. We discussed having family members bring some clothing for her to wear from home as she may have some type of allergy to the detergent used in the hospital. 1. Acute pulmonary edema 2/2 atrial fibrillation with RVR-hypoxia is resolved. Cont Imdur. 2. New onset atrial fibrillation-she spontaneously converted to sinus rhythm on HD2 and remains on Toprol for now. Coumadin was started on 11/05 and follow- up with Cardiology as outpatient for long-term care goals. Pt is planned for SNF on discharge. 3. NSTEMI 2/2 demand ischemia-per catheterization nonobstructive CAD was noted. Continue medical management per cardiology. 4. Dementia-intermittent delirium has resolved on scheduled risperidone. Etiology was likely 2/2 hyperthyroid state, recent anesthesia for cardiac cath or hospitalization. As Detrol and ropinorole may be playing a role, these were also stopped. Gabapentin was started for symptomatic restless leg syndrome 5. Restless leg syndrome-gabapentin started and there appears to be an improvement in her leg pain. 6. HTN-controlled, cont Losartan at reduced dose per Cardiology 7. Tobacco use. 8. Hyperthyroidism-2/2 exogenous Synthroid overdosing. Holding Synthroid replacement with recheck in 6 weeks. 9. Anemia-stable, likely related to dilutional effect from IVF vs phlebotomy. No indication for transfusion at this time. 10. Rash-stable, patient is asymptomatic. I am concerned that the risks of starting medication such as steroids or antihistamines may outweigh the benefits in the setting of high risk for delirium. We will continue to monitor at this time. DVT prophy-Lovenox/Coumadin Full Code Dispo-likely disposed to SNF tomorrow. Chelsy Knight DO [facility] Hospitalist Consultants: ICU-[facility] Current Inpatient Medications: Current Inpatient Medications Medications (Trade) Dose Ordered Sig/[place] Route Start Time Stop Time Status Last Admin Dose Admin Ipratropium [place] (Atrovent 0.02% 0.5MG/2.5ML Neb) 0.5 mg Q4H PRN INH 11/02/17 05:30 12/02/17 05:29 Levalbuterol (Xopenex 1.25MG/ 0.5ML Neb) 1.25 mg Q4H PRN INH 11/02/17 05:30 12/02/17 05:29 Nitroglycerin (Nitrostat Tab) 0.4 mg UD PRN SL 11/02/17 06:30 12/02/17 06:29 Tramadol HCl (Ultram Tab) 25 mg Q6H PRN PO 11/02/17 06:30 12/02/17 06:29 11/05/17 19:47 25 MG Prochlorperazine Edisylate 5 mg/ Syringe 5 ml @ 5 mls/min Q6H PRN IV 11/02/17 06:30 12/02/17 06:29 Morphine Sulfate (MoRPHine SULFATE INJ) 4 mg Q4H PRN IV 11/02/17 06:30 11/16/17 06:29 Clonazepam (Klonopin Tab) 0.5 mg TID PRN PO 11/02/17 06:30 12/02/17 06:29 11/06/17 03:04 0.5 MG Docusate Sodium (coLACE CAP) 100 mg BID PO 11/02/17 09:00 12/02/17 08:59 11/07/17 08:13 100 MG Paroxetine HCl (pAXil TAB) 40 mg DAILY PO 11/02/17 09:00 12/02/17 08:59 11/07/17 08:13 40 MG Ferrous Sulfate (Feosol Tab) 325 mg DAILY PO 11/02/17 09:00 12/02/17 08:59 11/07/17 08:13 325 MG Aspirin (Ecotrin Tab) 81 mg DAILY PO 11/03/17 09:00 12/03/17 08:59 11/07/17 08:12 81 MG Pantoprazole Sodium (Protonix Tab) 40 mg QAM PO 11/02/17 09:00 12/02/17 08:59 11/07/17 08:12 40 MG Metoprolol Succinate (Toprol Xl Tab) 75 mg QAM PO 11/04/17 09:00 12/03/17 08:59 11/07/17 08:12 75 MG Acetaminophen (Tylenol Tab) 1,000 mg Q8 PO 11/03/17 14:00 12/03/17 13:59 11/07/17 13:33 1,000 MG Sodium Chloride 250 ml @ 999 mls/hr Q16M PRN IV 11/04/17 17:17 12/04/17 17:16 Atropine Sulfate (Atropine Sulfate 0.1mg/ml Inj) 0.6 mg PRN PRN IV 11/04/17 17:30 12/04/17 17:29 Enoxaparin Sodium (Lovenox Inj) 40 mg DAILY SQ 11/05/17 09:00 12/05/17 08:59 11/07/17 08:14 40 MG Warfarin Sodium (Coumadin Tab) 5 mg DAILY@16 PO 11/05/17 16:00 12/05/17 15:59 11/07/17 15:56 5 MG Isosorbide Mononitrate (Imdur Ext Rel Tab) 30 mg QAM PO 11/06/17 09:00 12/06/17 08:59 11/07/17 08:13 30 MG Atorvastatin Calcium (Lipitor Tab) 20 mg QAM PO 11/06/17 09:00 12/06/17 08:59 11/07/17 08:13 20 MG Risperidone (Risperdal Tab) 0.25 mg BID PO 11/06/17 09:00 12/06/17 08:59 11/07/17 08:13 0.25 MG Losartan Potassium (coZAAR TAB) 25 mg BID PO 11/06/17 20:00 12/03/17 08:59 11/07/17 08:12 25 MG Gabapentin (Neurontin Cap) 100 mg HS PO 11/06/17 22:00 12/06/17 21:59 11/06/17 20:28 100 MG
[2017-11-07] MEDS ORDERED: ACETAMINOPHEN 325 MG TAB PO PRN (18:15)
[2017-11-07] MEDS: TRAMADOL HCL 50 MG TAB PO PRN (19:51)
[2017-11-07 19:53] VITALS: BP 166/88; PULSE 75
[2017-11-07] MEDS: GABAPENTIN 100 MG CAP PO SCH (19:56)
[2017-11-07] MEDS: CLONAZEPAM 0.5 MG TAB PO PRN (19:59)
[2017-11-07 23:21] VITALS: BP 158/87; PULSE 68; TEMP 36.7; O2SAT 98
[2017-11-08 06:51] VITALS: BP 160/75; PULSE 74; TEMP 37; O2SAT 97
[2017-11-08] MEDS: DOCUSATE SODIUM 100 MG CAP PO SCH ×2 (07:58→19:59)
[2017-11-08] MEDS: FERROUS SULFATE 325 MG TAB PO SCH (07:58)
[2017-11-08] MEDS: METOPROLOL SUCC 25MG EXT REL TAB PO SCH (07:59)
[2017-11-08] MEDS: LOSARTAN POTASSIUM 25 MG TAB PO SCH (07:59)
[2017-11-08] MEDS: RISPERIDONE 0.5 MG TAB PO SCH ×2 (07:59→19:59)
[2017-11-08] MEDS: ATORVASTATIN 20 MG TAB PO SCH (07:59)
[2017-11-08] MEDS: ASPIRIN 81 MG ECTAB PO SCH (07:59)
[2017-11-08] MEDS: PANTOprazole SOD 40 MG TAB PO SCH (07:59)
[2017-11-08] MEDS: PAROXETINE 20 MG TAB PO SCH (07:59)
[2017-11-08] MEDS: ISOSORBIDE MONONITRATE 30 MG TABCR PO SCH (07:59)
[2017-11-08] MEDS: ENOXAPARIN 40 MG/0.4 ML SYR SQ SCH (08:00)
[2017-11-08] MEDS ORDERED: LOSARTAN POTASSIUM 25 MG TAB PO ONE (10:15)
[2017-11-08] MEDS ORDERED: TRIAMCINOLONE ACET 0.1% CR 15 GM TUBE EXT ONE (12:54)
[2017-11-08] MEDS: ACETAMINOPHEN 500 MG TAB PO SCH ×2 (13:22→21:55)
[2017-11-08] MEDS: CEPHALEXIN MONOHYDRATE 500 MG CAP PO SCH ×3 (13:39→20:00)
[2017-11-08 15:52] VITALS: BP 117/54; PULSE 70; TEMP 37.3; O2SAT 91
[2017-11-08] MEDS ORDERED: WARFARIN SOD 2.5 MG TAB PO SCH (16:00)
[2017-11-08] MEDS: LOSARTAN POTASSIUM 50 MG TAB PO SCH (20:00)
[2017-11-08] MEDS: TRIAMCINOLONE ACET 0.1% CR 15 GM TUBE EXT SCH (20:00)
[2017-11-08] MEDS: GABAPENTIN 100 MG CAP PO SCH (21:54)
--- NOTE | 2017-11-08 23:12 | Progress Note ---
Medicine Progress Note Date & Time of Visit: November 08, 2017 at 23:06. Subjective 77 yo F who recently picked up smoking presents with acute respiratory failure 2 /2 pulmonary edema in the setting of new onset atrial fibrillation with RVR. She was placed on BIPAP and admitted to the ICU overnight with improvement. She has been doing well in the last several days of her hospitalization except for some episodes of delirium with combativeness which has resolved after the addition of scheduled dose. She notes slight itchiness from the rash on her back which has improved. She is in her own nightgown from home which was recommended yesterday. She denies a worsening of pain after decreasing scheduled Tylenol yesterday to as needed. She reports her restless leg syndrome is controlled with the gabapentin that was started. She is otherwise doing well. Objective Last 8 Hrs Date Time Temp Pulse Resp B/P (MAP) Pulse Ox O2 Delivery O2 Flow Rate FiO2 11/08/17 20:15 Room Air 11/08/17 16:14 Room Air 11/08/17 15:52 37.3 70 20 117/54 (75) 91 Room Air Physical Exam: GEN: obese, in no acute distress, alert oriented x 2. Pleasant, conversing appropriately HEENT: NC/AT, normal sclerae CARDIO: reg rate, S1/2 heard without m/g/r LUNGS: CTA bilaterally, no crackles, rales or wheezes, good diaphragmatic excursion ABD: soft, non-tender, non-distended, no rebound or guarding EXTREMITY: RP and DP palpable 2+ bilat, no LE swelling or edema, extremities are warm and well-perfused NEURO: CN 2-12 grossly intact, exam limited as patient confused. MUSC: moves all extremities equally. Able to sit up in bed on her own. SKIN: warm and dry Laboratory Results: 11/06/17 05:18 11/06/17 05:18 Test 11/02/17 03:47 11/02/17 03:48 11/02/17 05:28 11/02/17 11:44 Procalcitonin < 0.05 ng/ml (0-0.5) Pro-B-Type Natriuretic Peptide 6948 pg/ml (0-900) Arterial Blood pH 7.36 (7.35-7.45) Arterial Blood Partial Pressure CO2 41 mmHg (35-46) Arterial Blood Partial Pressure O2 179 mm/Hg (80-95) Arterial Blood HCO3 23 mmol/L (19-24) Arterial Blood Oxygen Saturation 99.3 % (90-95) Arterial Blood Base Excess -2.6 mEq/L (-9-1.8) Arterial Blood Gas Delivery 100% Greg Test POS (POS) Thyroid Stimulating Hormone (TSH) < 0.005 uIu/ml (0.300-4.500) Total Triiodothyronine 1.39 ng/ml (0.60-1.81) Triglycerides Level 141 mg/dl (0-150) Cholesterol Level 142 mg/dl (0-200) HDL Cholesterol 30 mg/dl LDL Cholesterol, Calculated 84 mg/dl VLDL Cholesterol, Calculated 28 mg/dl Cholesterol/HDL Ratio 4.7 Test 11/02/17 14:36 11/02/17 14:45 11/03/17 03:45 11/03/17 05:06 Blood Gas Sample Site R Radial Bedside Blood Gas pH (LAB) 7.44 (7.35-7.45) Bedside Blood Gas pCO2 (LAB) 33 mmHg (35-46) Bedside Blood Gas pO2 (LAB) 112 mmHg (80-95) Bedside Blood Gas HCO3 (LAB) 22 meq/L (19-24) Bedside Blood Gas Total CO2 23 mEq/l (24-31) Bedside Blood Gas Base Excess (LAB) -2.0 meq/L (-9-1.8) Bedside Blood Gas O2 Saturation 99.0 % (90-95) Greg Test Pass Oxygen Delivery Device BIPAP Bedside Oxygen Rate (breaths/min) 12 Bedside FiO2 35 % Blood Gas IPAP 12 Lactic Acid Level 0.9 mmol/L (0.4-2.0) Total Bilirubin 0.6 mg/dl (0.2-1) Direct Bilirubin 0.1 mg/dl (0-0.2) Aspartate Amino Transf (AST/SGOT) 26 U/L (15-37) Alanine Aminotransferase (ALT/SGPT) 16 U/L (12-78) Alkaline Phosphatase 73 U/L (45-117) Ammonia 25.6 umol/L (11-32) Total Protein 5.8 gm/dl (6.4-8.2) Albumin 2.8 gm/dl (3.4-5.0) Immature Granulocyte % (Auto) 0.1 % White Blood Count 7.48 K/uL (4.8-10.8) Red Blood Count 3.27 M/uL (4.2-5.4) Hemoglobin 8.8 g/dL (12.0-16.0) Hematocrit 27.4 % (37-47) Mean Corpuscular Volume 83.8 fL (80-100) Mean Corpuscular Hemoglobin 26.9 pg (25-34) Mean Corpuscular Hemoglobin Concent 32.1 g/dl (32-36) Platelet Count 244 K/uL (130-400) Mean Platelet Volume 9.0 fL (7.4-10.4) Neutrophils (%) (Auto) 58.4 % Lymphocytes (%) (Auto) 27.8 % Monocytes (%) (Auto) 10.0 % Eosinophils (%) (Auto) 3.6 % Basophils (%) (Auto) 0.1 % Neutrophils # (Auto) 4.36 K/uL (1.4-6.5) Lymphocytes # (Auto) 2.08 K/uL (1.2-3.4) Monocytes # (Auto) 0.75 K/uL (0.11-0.59) Eosinophils # (Auto) 0.27 K/uL (0-0.5) Basophils # (Auto) 0.01 K/uL (0-0.2) Immature Granulocyte # (Auto) 0.01 K/uL (0.00-0.02) Red Blood Cell Morphology Unremarkable Phosphorus Level 3.4 mg/dl (2.5-4.9) Free Thyroxine 2.85 ng/dl (0.80-1.60) Free Triiodothyronine 4.28 pg/ml (2.30-4.20) Thyroid Antimicrosomal Antibody 8 IU/ML (<9) Total Creatine Kinase 42 U/L (26-192) Creatine Kinase MB 2.0 ng/ml (0.5-3.6) Creatine Kinase MB Ratio 4.8 (0-3.0) Troponin I 1.130 ng/ml (0-0.045) Test 11/04/17 05:20 11/06/17 05:18 11/06/17 07:26 11/07/17 00:00 Activated Partial Thromboplast Time 46.5 SECONDS (21.0-31.0) Partial Thromboplastin Ratio 1.8 Red Blood Count 3.56 M/uL (4.2-5.4) Mean Corpuscular Volume 82.3 fL (80-100) Mean Corpuscular Hemoglobin 27.0 pg (25-34) Mean Corpuscular Hemoglobin Concent 32.8 g/dl (32-36) RDW Standard Deviation 44.1 fL (36.4-46.3) RDW Coefficient of Variation 14.7 % (11.5-14.5) Mean Platelet Volume 8.8 fL (7.4-10.4) Anion Gap 6.0 mmol/L (3-11) Est Creatinine Clear Calc Drug Dose 78.2 ml/min Estimated GFR () 103.3 Estimated GFR (Non- 89.2 BUN/Creatinine Ratio 12.6 (10-20) Calcium Level 9.7 mg/dl (8.5-10.1) Magnesium Level 1.9 mg/dl (1.8-2.4) Bedside Glucose 113 mg/dl (70-90) Urine Color YELLOW Urine Appearance CLEAR (CLEAR) Urine pH 7.0 (4.5-7.5) Urine Specific [place] 1.011 (1.000-1.030) Urine Protein NEG (NEG) Urine Glucose (UA) NEG (NEG) Urine Ketones NEG (NEG) Urine Occult Blood NEG (NEG) Urine Nitrite NEG (NEG) Urine Bilirubin NEG (NEG) Urine Urobilinogen NEG (NEG) Urine Leukocyte Esterase MODERATE (NEG) Urine WBC (Auto) 10-30 /hpf (0-5) Urine RBC (Auto) 0-4 /hpf (0-4) Urine Hyaline Casts (Auto) 0 /lpf (0-5) Urine Epithelial Cells (Auto) 10-20 /lpf (0-5) Urine Bacteria (Auto) NEG (NEG) Test 11/07/17 07:19 11/08/17 07:12 Vitamin B12 Level 392 pg/mL (211-911) 25-Hydroxy Vitamin D Total 32.3 ng/ml (30-100) Folate 12.96 ng/mL (>5.38) Prothrombin Time 30.8 SECONDS (9.0-12.0) Prothromb Time International Ratio 3.0 (0.9-1.1) Date/Time Source Procedure Growth Status 11/02/17 05:28 Blood Blood Culture - Final NO GROWTH Complete 11/02/17 07:45 Nasal MRSA DNA Surveillance Screen - Final Specimen Negative for MRSA by DNA Probe Complete 11/07/17 00:00 Urine , Clean Catch Urine Culture - Preliminary Group B Beta Strep Resulted Last 24 Hours Test 11/08/17 07:12 Prothrombin Time 30.8 SECONDS Prothromb Time International Ratio 3.0 Assessment & Plan 77 yo F who recently picked up smoking presents with acute respiratory failure 2 /2 pulmonary edema in the setting of new onset atrial fibrillation with RVR. She was placed on BIPAP and admitted to the ICU overnight with improvement. She has been doing well in the last several days of her hospitalization except for some episodes of delirium with combativeness which has resolved after the addition of scheduled dose. She notes slight itchiness from the rash on her back which has improved. She is in her own nightgown from home which was recommended yesterday. She denies a worsening of pain after decreasing scheduled Tylenol yesterday to as needed. She reports her restless leg syndrome is controlled with the gabapentin that was started. She is otherwise doing well. 1. Rash-possibly secondary to contrast administration versus contact dermatitis from detergent used from hospital linens versus other. Patient has had rash in the past. It currently looks like it is healing well. With symptoms of itching will add steroid cream topically to her. Continue to monitor. 2. Restless leg syndrome-held Requip in setting of dementia with delirium as uncertain if Requip was contributing to delirium. Added gabapentin and this is successful per patient. Continue gabapentin nightly. 3. New onset atrial fibrillation-she spontaneously converted to sinus rhythm on HD2 and remains on Toprol for now. Coumadin was started on 11/05 and follow- up with Cardiology as outpatient for long-term care goals. Pt is planned for SNF on discharge. 4. NSTEMI 2/2 demand ischemia-per catheterization nonobstructive CAD was noted. Continue medical management per cardiology. 5. Dementia-intermittent delirium has resolved on scheduled risperidone. Etiology was likely 2/2 hyperthyroid state, recent anesthesia for cardiac cath or hospitalization. As Detrol and ropinorole may be playing a role, these were also stopped. Gabapentin was started for symptomatic restless leg syndrome 6. HTN-uncontrolled, increase losartan to 50 mg twice daily. 7. Tobacco use. 8. Hyperthyroidism-2/2 exogenous Synthroid overdosing. Holding Synthroid replacement with recheck in 6 weeks. 9. Anemia-stable, likely related to dilutional effect from IVF vs phlebotomy. No indication for transfusion at this time. DVT prophy-Coumadin Full Code Dispo-likely [facility]. [facility]: [facility] Current Inpatient Medications: Current Inpatient Medications Medications (Trade) Dose Ordered Sig/[place] Route Start Time Stop Time Status Last Admin Dose Admin Nitroglycerin (Nitrostat Tab) 0.4 mg UD PRN SL 11/02/17 06:30 12/02/17 06:29 Tramadol HCl (Ultram Tab) 25 mg Q6H PRN PO 11/02/17 06:30 12/02/17 06:29 11/07/17 19:51 25 MG Prochlorperazine Edisylate 5 mg/ Syringe 5 ml @ 5 mls/min Q6H PRN IV 11/02/17 06:30 12/02/17 06:29 Clonazepam (Klonopin Tab) 0.5 mg TID PRN PO 11/02/17 06:30 12/02/17 06:29 11/07/17 19:59 0.5 MG Docusate Sodium (coLACE CAP) 100 mg BID PO 11/02/17 09:00 12/02/17 08:59 11/08/17 19:59 100 MG Paroxetine HCl (pAXil TAB) 40 mg DAILY PO 11/02/17 09:00 12/02/17 08:59 11/08/17 07:59 40 MG Ferrous Sulfate (Feosol Tab) 325 mg DAILY PO 11/02/17 09:00 12/02/17 08:59 11/08/17 07:58 325 MG Aspirin (Ecotrin Tab) 81 mg DAILY PO 11/03/17 09:00 12/03/17 08:59 11/08/17 07:59 81 MG Pantoprazole Sodium (Protonix Tab) 40 mg QAM PO 11/02/17 09:00 12/02/17 08:59 11/08/17 07:59 40 MG Metoprolol Succinate (Toprol Xl Tab) 75 mg QAM PO 11/04/17 09:00 12/03/17 08:59 11/08/17 07:59 75 MG Atropine Sulfate (Atropine Sulfate 0.1mg/ml Inj) 0.6 mg PRN PRN IV 11/04/17 17:30 12/04/17 17:29 Isosorbide Mononitrate (Imdur Ext Rel Tab) 30 mg QAM PO 11/06/17 09:00 12/06/17 08:59 11/08/17 07:59 30 MG Atorvastatin Calcium (Lipitor Tab) 20 mg QAM PO 11/06/17 09:00 12/06/17 08:59 11/08/17 07:59 20 MG Risperidone (Risperdal Tab) 0.25 mg BID PO 11/06/17 09:00 12/06/17 08:59 11/08/17 19:59 0.25 MG Gabapentin (Neurontin Cap) 100 mg HS PO 11/06/17 22:00 12/06/17 21:59 11/08/17 21:54 100 MG Warfarin Sodium (Coumadin Tab) 2.5 mg DAILY@16 PO 11/08/17 16:00 12/08/17 15:59 11/08/17 15:34 2.5 MG Losartan Potassium (coZAAR TAB) 50 mg BID PO 11/08/17 20:00 12/08/17 19:59 11/08/17 20:00 50 MG Cephalexin Monohydrate (Keflex Cap) 500 mg QID PO 11/08/17 13:00 11/13/17 12:59 11/08/17 20:00 500 MG Acetaminophen (Tylenol Tab) 1,000 mg Q8 PO 11/08/17 14:00 12/08/17 13:59 11/08/17 21:55 1,000 MG Triamcinolone Acetonide (Kenalog 0.1% Cream) 1 appln BID EXT 11/08/17 20:00 11/13/17 19:59 11/08/17 20:00 1 APPLN
[2017-11-09 00:45] VITALS: BP 194/65; PULSE 65; TEMP 36.8; O2SAT 92
[2017-11-09 04:53] VITALS: BP 152/76; PULSE 78
[2017-11-09] MEDS: ACETAMINOPHEN 500 MG TAB PO SCH (05:47)
[2017-11-09 07:33] VITALS: BP 191/72; PULSE 72; TEMP 36.8; O2SAT 95
[2017-11-09] MEDS: DOCUSATE SODIUM 100 MG CAP PO SCH (07:36)
[2017-11-09] MEDS: METOPROLOL SUCC 25MG EXT REL TAB PO SCH (07:37)
[2017-11-09] MEDS: FERROUS SULFATE 325 MG TAB PO SCH (07:37)
[2017-11-09] MEDS: TRIAMCINOLONE ACET 0.1% CR 15 GM TUBE EXT SCH (07:37)
[2017-11-09] MEDS: PANTOprazole SOD 40 MG TAB PO SCH (07:37)
[2017-11-09] MEDS: ATORVASTATIN 20 MG TAB PO SCH (07:37)
[2017-11-09] MEDS: LOSARTAN POTASSIUM 50 MG TAB PO SCH (07:38)
[2017-11-09] MEDS: CEPHALEXIN MONOHYDRATE 500 MG CAP PO SCH ×2 (07:38→12:32)
[2017-11-09] MEDS: ASPIRIN 81 MG ECTAB PO SCH (07:38)
[2017-11-09] MEDS: ISOSORBIDE MONONITRATE 30 MG TABCR PO SCH (07:38)
[2017-11-09] MEDS: RISPERIDONE 0.5 MG TAB PO SCH (07:39)
[2017-11-09] MEDS: PAROXETINE 20 MG TAB PO SCH (07:39)
[2017-11-09 09:02] LABS: HEMOGLOBIN 11.1 g/dL (12.0-16.0); MEAN CELL VOLUME 82.7 fL (80-100); MEAN CORPUSCULAR HGB CONC 32.6 g/dl (32-36); MEAN PLATELET VOLUME 9.3 fL (7.4-10.4); PLATELET COUNT 306 K/uL (130-400); RED CELL DISTRIBUTION WIDTH CV 14.5 % (11.5-14.5); RED CELL DISTRIBUTION WIDTH SD 44.1 fL (36.4-46.3); WHITE BLOOD COUNT 6.27 K/uL (4.8-10.8)
[2017-11-09 09:09] LABS: INR 2.5 (0.9-1.1)
[2017-11-09 09:30] VITALS: BP 128/68; PULSE 75
[2017-11-09 09:35] LABS: CALCIUM 9.4 mg/dl (8.5-10.1); CREATININE 0.71 mg/dl (0.60-1.20); POTASSIUM 3.6 mmol/L (3.5-5.1)
[2017-11-09 10:47] VITALS: BP 128/68; PULSE 75; TEMP 36.8; O2SAT 95
[2017-11-09] MEDS ORDERED: RISP-99 PO (11:56)
[2017-11-09] MEDS ORDERED: CZR50 PO (11:56)
[2017-11-09] MEDS ORDERED: NRN100 PO (11:56)
[2017-11-09] MEDS ORDERED: IMDSR30 PO (11:56)
[2017-11-09] MEDS ORDERED: TPRSR25 PO (11:56)
[2017-11-09] MEDS ORDERED: LPT20 PO (11:56)
[2017-11-09] MEDS ORDERED: CMD25 PO (11:56)
[2017-11-09] MEDS ORDERED: TRMCR115 EXT (11:56)
[2017-11-09] MEDS ORDERED: KFL500 PO (11:56)
--- NOTE | 2017-11-09 12:03 | Discharge Instructions ---
Discharge Instructions Date of Service November 09, 2017. Admission Reason for Admission: Respiratory Failure, Acute Discharge Discharge Diagnosis / Problem: Acute respiratory failure, UTI, rash, Dementia Discharge Goals Goal(s): Prevent Disease Progression Activity Recommendations Activity Limitations: per Instructions/Follow-up section . Instructions / Follow-Up Instructions / Follow-Up Please take all medications as instructed. It is recommended that you follow-up with your primary care physician within 7 days of discharge from the facility where you are going. You were found to be in a hyperthyroid state, and your thyroid replacement medication was stopped. A repeat TSH (thyroid function studies) are recommended in 5 weeks time. You will need to follow-up with [facility] Cardiology to discuss long-term goals of care for your atrial fibrillation and coumadin use. You will need regular INR checks at the receiving facility beginning as soon as possible. Goal INR is between 2 and 3. It was a pleasure taking care of you! Call if you have any questions or problems. You can reach a [facility] hospitalist on duty at [facility] 24 hours a day by calling [phone]. Take care of yourself. Chelsy Knight DO [facility] Hospitalist Current Hospital Diet Patient's current hospital diet: AHA Diet (Heart Healthy) Discharge Diet Recommended Diet: AHA Diet (Heart Healthy) Procedures Procedures Performed: Cardiac Catheterization (left) TTE Pending Studies Studies pending at discharge: no Laboratory Results Lipid Panel Test 11/02/17 11:44 Range/Units Triglycerides Level 141 0-150 mg/dl Cholesterol Level 142 0-200 mg/dl HDL Cholesterol 30 mg/dl Cholesterol/HDL Ratio 4.7 LDL Cholesterol, Calculated 84 mg/dl Medical Emergencies . Who to Call and When: Medical Emergencies: If at any time you feel your situation is an emergency, please call 911 immediately. . Non-Emergent Contact Non-Emergency issues call your: Primary Care Provider . . "Provider Documentation" section prepared by Chelsy Knight. .
--- NOTE | 2017-11-09 12:36 | Discharge Summary ---
Discharge Summary Date of Service November 09, 2017. Discharge Summary Admission Date: November 02, 2017 at 06:02 Discharge Date: November 09, 2017 Discharge Disposition: retirement facility Principal Diagnosis: dementia New onset atrial fibrillation Hyperthyroid state RLS non-obstructive CAD Procedures: Left heart catheterization TTE Consultations: ICU-[facility] Medication Reconciliation New Medications: Atorvastatin (Lipitor) 20 Mg Tab 20 MG PO QAM, #30 TAB Cephalexin Monohydrate (Cephalexin) 500 Mg Cap 500 MG PO QID for 4 Days, #16 CAP Gabapentin (Gabapentin) 100 Mg Cap 100 MG PO HS for 30 Days, #30 CAP Isosorbide Mononitrate (Isosorbide Mononitrate ER) 30 Mg Tabcr 30 MG PO QAM for 30 Days, #30 TAB Losartan Potassium (Losartan Potassium) 50 Mg Tab 50 MG PO BID for 30 Days, #60 TAB Metoprolol Succinate (Metoprolol Succinate ER) 25 Mg Tabcr 75 MG PO QAM for 30 Days, #30 TAB Risperidone (Risperidone) 0.5 Mg Tab 0.25 MG PO BID for 30 Days, #60 TAB Triamcinolone Acet (Triamcinolone Acetonide) 45 Appln/15 Gm Cr 1 APPLN EXT BID for 7 Days, #1 EA Please apply to rash on back twice daily for 7 days. Warfarin Sod (Coumadin) 2.5 Mg Tab 2.5 MG PO DAILY@16 for 30 Days, #30 TAB Continued Medications: Aspirin (Aspirin Ec) 81 Mg Tab 81 MG PO DAILY Cholecalciferol (Vitamin D3) 1,000 Unit Tab 1000 UNITS PO DAILY for 90 Days, TAB 3 Refills Clonazepam (Klonopin) 0.5 Mg Tab 0.5 MG PO TID PRN for anxiety, TAB Ferrous Sulfate (Kp Ferrous Sulfate) 325 Mg Tab 1 TAB PO DAILY for 30 Days, #30 TAB 3 Refills Paroxetine (Paxil) 40 Mg Tab 40 MG PO DAILY, TAB Discontinued Medications: Docusate Sodium (Docusate Sodium) 100 Mg Cap 100 MG PO BID for 7 Days, #14 CAP Hydrocortisone 2.5% (Rectal) (Anusol-Hc 2.5%) 2.5 % Cre 1 APPLN TOP BID for 7 Days, #30 GM Levothyroxine Sodium (Levothyroxine Sodium) 200 Mcg Tab 200 MCG PO DAILY for 90 Days, #90 TAB 3 Refills take 30 min. prior breakfast or other meds Levothyroxine Sodium (Levothyroxine Sodium) 50 Mcg Tab 50 MCG PO DAILY for 90 Days, #90 TAB 3 Refills take with the 200 mcg Losartan Potassium (Cozaar) 50 Mg Tab 50 MG PO DAILY, TAB Metoprolol Succ (Toprol Xl) (Toprol-Xl) 50 Mg Tabcr 50 MG PO DAILY, #30 TAB Naproxen (Aleve) 220 Mg Tab 440 MG PO DIRECTED PRN for Pain, TAB may take 440 mg 2-3 times/week Raloxifene Hcl (Evista) 60 Mg Tab 60 MG PO DAILY, TAB Ropinirole (Requip) 0.5 Mg Tab 0.5 MG PO TID PRN for restless legs, TAB Tolterodine Tartrate (Tolterodine Tartrate) 2 Mg Tab 2 MG PO BID [aspirin caffeine] () 1 TAB PO DAILY PRN for mild pain dose 400-32mg Hospital Course 77 yo F who recently picked up smoking presents with acute respiratory failure 2 /2 pulmonary edema in the setting of new onset atrial fibrillation with RVR. She was placed on BIPAP and admitted to the ICU overnight with improvement. She has been doing well in the last several days of her hospitalization except for some episodes of delirium with combativeness which has resolved after the addition of scheduled dose. She notes slight itchiness from the rash on her back which has improved. She is in her own nightgown from home which was recommended yesterday. She denies a worsening of pain after decreasing scheduled Tylenol yesterday to as needed. She reports her restless leg syndrome is controlled with the gabapentin that was started. She is otherwise doing well. 1. Rash-possibly secondary to contrast administration versus contact dermatitis from detergent used from hospital linens versus other. Patient has had rash in the past. It currently looks like it is healing well. With symptoms of itching will add steroid cream topically to her. Continue to monitor. 2. Restless leg syndrome-held Requip in setting of dementia with delirium as uncertain if Requip was contributing to delirium. Added gabapentin and this is successful per patient. Continue gabapentin nightly. 3. New onset atrial fibrillation-she spontaneously converted to sinus rhythm on HD2 and remains on Toprol for now. Coumadin was started on 11/05 and follow- up with Cardiology as outpatient for long-term care goals. Pt is planned for SNF on discharge. 4. NSTEMI 2/2 demand ischemia-per catheterization nonobstructive CAD was noted. Continue medical management per cardiology. 5. Dementia-intermittent delirium has resolved on scheduled risperidone. Etiology was likely 2/2 hyperthyroid state, recent anesthesia for cardiac cath or hospitalization. As Detrol and ropinorole may be playing a role, these were also stopped. Gabapentin was started for symptomatic restless leg syndrome 6. HTN-uncontrolled, increase losartan to 50 mg twice daily. 7. Tobacco use. 8. Hyperthyroidism-2/2 exogenous Synthroid overdosing. Holding Synthroid replacement with recheck in 6 weeks. 9. Anemia-stable, likely related to dilutional effect from IVF vs phlebotomy. No indication for transfusion at this time. DVT prophy-Coumadin Full Code Dispo-likely disposed to SNF tomorrow. Chelsy Knight DO [facility] Hospitalist Total time spent on discharge = 60 minutes This includes examination of the patient, discharge planning, medication reconciliation, and communication with other providers. [place] [address] Discharge Medical Patient Name: Magaly Merritt Unit Number: [id number] Date of : 1940 Patient Status: Admitted Inpatient Attending Doctor: Chelsy Knight DO DI: Medical v5 Discharge Instructions Date of Service November 09, 2017. Admission Reason for Admission: Respiratory Failure, Acute Discharge Discharge Diagnosis / Problem: Acute respiratory failure, UTI, rash, Dementia Discharge Goals Goal(s): Prevent Disease Progression Activity Recommendations Activity Limitations: per Instructions/Follow-up section . Instructions / Follow-Up Instructions / Follow-Up Please take all medications as instructed. It is recommended that you follow-up with your primary care physician within 7 days of discharge from the facility where you are going. You were found to be in a hyperthyroid state, and your thyroid replacement medication was stopped. A repeat TSH (thyroid function studies) are recommended in 5 weeks time. You will need to follow-up with [facility] Cardiology to discuss long-term goals of care for your atrial fibrillation and coumadin use. You will need regular INR checks at the receiving facility beginning as soon as possible. Goal INR is between 2 and 3. It was a pleasure taking care of you! Call if you have any questions or problems. You can reach a [facility] Hospitalist on duty at [facility] 24 hours a day by calling [phone]. Take care of yourself. Chelsy [facility] Patient's current hospital diet: AHA Diet (Heart Healthy) Discharge Diet Recommended Diet: AHA Diet (Heart Healthy) Procedures Procedures Performed: Cardiac Catheterization (left) TTE Pending Studies Studies pending at discharge: no Laboratory Results Lipid Panel Test 11/02/17 11:44 Range/Units Triglycerides Level 141 0-150 mg/dl Cholesterol Level 142 0-200 mg/dl HDL Cholesterol 30 mg/dl Cholesterol/HDL Ratio 4.7 LDL Cholesterol, Calculated 84 mg/dl Medical Emergencies . Who to Call and When: Medical Emergencies: If at any time you feel your situation is an emergency, please call 911 immediately. . Non-Emergent Contact Non-Emergency issues call your: Primary Care Provider . . "Provider Documentation" section prepared by Chelsy Knight. .
== END 2017-11-09 13:32 | DRG 280 ==
LOC: EDBD 03:23 → C.EDB 03:24 → C.MSICU 06:02 → ENRESERV 06:07 → UNDODISIN 11-03 10:00 → C.2T 11-03 18:47 → ENRESERV 11-06 14:39 → C.MS4W 11-06 15:09
PROVIDERS: ADMIT Internal Medicine; ATTEND Hospitalist
PROC: B211YZZ Fluoroscopy of Multiple Coronary Arteries using Other Contrast (ICD-10-PCS; principal; 2017-11-04 12:24)
DX: I21.A1 Myocardial infarction type 2 (principal); J96.01 Acute respiratory failure with hypoxia; I50.21 Acute systolic (congestive) heart failure; G93.41 Metabolic encephalopathy; F03.91 Unspecified dementia, unspecified severity, with behavioral disturbance; I48.91 Unspecified atrial fibrillation; E05.90 Thyrotoxicosis, unspecified without thyrotoxic crisis or storm; T38.1X5A Adverse effect of thyroid hormones and substitutes, initial encounter; G25.81 Restless legs syndrome; K21.9 Gastro-esophageal reflux disease without esophagitis; E87.6 Hypokalemia; T50.2X5A Adverse effect of carbonic-anhydrase inhibitors, benzothiadiazides and other diuretics, initial encounter; R21 Rash and other nonspecific skin eruption; D64.9 Anemia, unspecified; I25.10 Atherosclerotic heart disease of native coronary artery without angina pectoris; I11.0 Hypertensive heart disease with heart failure; E03.9 Hypothyroidism, unspecified; R13.12 Dysphagia, oropharyngeal phase; I73.9 Peripheral vascular disease, unspecified; F17.210 Nicotine dependence, cigarettes, uncomplicated; Z51.81 Encounter for therapeutic drug level monitoring; Z79.899 Other long term (current) drug therapy; Z79.82 Long term (current) use of aspirin; Z66 Do not resuscitate; Z88.0 Allergy status to penicillin; Z88.8 Allergy status to other drugs, medicaments and biological substances; Z91.011 Allergy to milk products; Z82.49 Family history of ischemic heart disease and other diseases of the circulatory system; Z82.0 Family history of epilepsy and other diseases of the nervous system